=== PATIENT | female | born 1950 | race Caucasian/White ===

== ENCOUNTER 2024-07-12 09:46 | Outpatient (REF) | payer MEDICARE, SELFPAY ==
[2024-07-12 11:44] LABS: MANUAL DIFF FLAG NO
[2024-07-12 12:30] LABS: Basophils Absolute Auto 0.1 X10*3/uL (0.0-0.2); Basophils Percent Auto 0.7 % (0-2); Eosinophils Absolute Auto 0.1 X10*3/uL (0.0-0.4); Eosinophils Percent Auto 1.7 % (0-4); Hematocrit 33.6 % (37.0-47.0); Hemoglobin 11.2 g/dl (12.0-16.0); Imm Gran Abs Auto 0.11 X10*3/uL (0.00-0.03); Imm Gran Pct Auto 1.4 % (0.0-0.4); Lymphocytes Absolute Auto 0.9 X10*3/uL (1.2-4.9); Lymphocytes Percent Auto 10.7 % (20-40); Mean Corpuscular HGB Conc 33.3 g/dl (31.0-35.0); Mean Corpuscular Hemoglobin 31.1 pg (27.0-33.0); Mean Corpuscular Volume 93.3 fL (80.0-98.0); Mean Platelet Volume 9.6 fL (9.4-12.3); Monocytes Absolute Auto 0.6 X10*3/uL (0.1-1.2); Monocytes Percent Auto 7.5 % (2-11); Neutrophils Absolute Auto 6.3 x10*3/uL (2.0-8.3); Platelet Count 318 X10*3/uL (160-400); Red Cell Distribution Width 14.7 % (11.0-16.0); White Blood Count 8.1 X10*3/uL (4.8-10.8)
[2024-07-12 12:42] LABS: Alanine Aminotransferase 27 U/L (0-31); Aspartate Amino Transferase 36 U/L (5-31); C Reactive Protein 0.52 mg/dL (< or = 0.50); Estimated Glomerular Filt Rate 34
[2024-07-12 13:06] LABS: Erythrocyte Sedimentation Rate 67 MM/HR (0-20); HBS Num1 2.36 mIU/mL (0-7.99); HBc Num1 0.13 S/CO (0.00-0.79); HBsAGNum1 0.35 S/CO (0.00-0.99); Hepatitis B Core Antibody Nonreactive (Nonreactive); Hepatitis B Surface Antigen Negative (Negative); ~HepC Num1 0.11 S/CO (0.00-0.79); ~Hepatitis B Surface Antibody NONREACTIVE (Nonreactive); ~Hepatitis C Antibody Nonreactive (Nonreactive)
[2024-07-15 07:48] LABS: TS Negative Control Passed; TS Panel A 0; TS Panel B 0; TS Positive Control Passed; TSpotTB Negative (Negative)
== END 2024-07-12 09:47 | disposition home or self-care (01) ==
LOC: HO.LAB 09:46
PROVIDERS: PCP Internal Medicine; Visit Provider Internal Medicine Rheumatology
DX: M06.9 Rheumatoid arthritis, unspecified (principal); Z79.899 Other long term (current) drug therapy
CPT/HCPCS: 36415; 82565; 84450; 84460; 85025; 85652; 86140; 86481; 86704; 86706; 86803; 87340

== ENCOUNTER 2024-07-12 09:46 | Outpatient (AMB) | payer BC, SELFPAY ==
[2024-07-12 10:12] VITALS: BP 118/70; PULSE 78; O2SAT 100; BMI 42.1
--- NOTE | 2024-07-12 10:12 | A.OFFVIS_ITS ---
Vital Signs 07/12/24 10:12 Height 5 ft 4 in Weight 245 lb 2.464 oz BMI 42.1 BP 118/70 Blood Pressure Location Lt brachial Position Sitting Pulse 78 Pulse Source Pulse Oximeter Pulse Oximetry (%) 100 Oxygen Delivery Method Room Air Intake Visit Reasons: RA/MR Recieved Intake Note: Patient presents today for follow up on RA. She was last seen by Dr. Walsh at the [facility] on 02/23/24. Allergies novocaine Adverse Reaction (Mild, Uncoded 07/12/24 10:17) shaky, cold IVP dye Adverse Reaction (Unknown, Uncoded 07/12/24 10:17) extremely cold Medication List - Last Reconciled 07/12/24 by Alon Walsh MD acetaminophen (Tylenol Extra Strength) 1,000 mg PO Q6H PRN aspirin (Adult Aspirin Regimen) 81 mg PO DAILY folic acid 1 mg PO DAILY glipizide 10 mg PO DAILY hydrochlorothiazide 25 mg PO DAILY losartan 100 mg PO DAILY metformin 1,000 mg PO BID methotrexate sodium 7.5 mg PO QWEEK fbximcnfutan-qcgtnhxq-hatroe 1 tab PO DAILY pioglitazone 45 mg PO DAILY pravastatin 80 mg PO DAILY HPI HPI RA/MR Recieved: Details: She feels well. No new infections. Rheumatology records reviewed from [facility]. Rheumatology history: Diagnosis rheumatoid arthritis seropositive with positive anti CCP antibody greater than 250, negative rheumatoid factor. Erosive. Methotrexate started 11/09/2020 until present. History of CKD. Monitoring kidney function closely if kidney function declines with EGFR less than 30, we will need to discontinue methotrexate. Review of Systems Const All systems reviewed & are unremarkable except as noted in HPI and below Physical Exam Vital Signs: Last Vital Signs Pulse 78 07/12/24 10:12 BP 118/70 07/12/24 10:12 Pulse Ox 100 07/12/24 10:12 Oxygen Delivery Method Room Air 07/12/24 10:12 BMI result Body Mass Index 42.1 Const General: cooperative and healthy appearing Resp Effort & Inspection: normal respiratory effort Auscultation: clear to auscultation bilaterally Cardio Rate: regular rate Rhythm: regular rhythm Heart sounds: S1 normal heart sound present and S2 normal heart sound present Extrem Other: No synovitis. Good range of motion of upper extremity. Bilateral knee flexion 90 degrees. No MTP tenderness. Assessment & Plan Assessment & Plan (1) Rheumatoid arthritis: Comment: Controlled on current regimen Code(s): M06.9 - Rheumatoid arthritis, unspecified Category: Medical Plan: Labs for disease and drug monitoring ordered Continue methotrexate 7.5 mg once weekly Continue folic acid 1 mg daily Monitoring kidney function closely. If EGFR degrees his less than 30, we will discontinue methotrexate Immunizations are up-to-date: Flu shot and COVID-19 booster (2) Other care home (current) drug therapy: Code(s): Z79.899 - Other care home (current) drug therapy Category: Medical Plan: See above Plan . Orders: Orders Erythrocyte Sedimentation Rate Today M06.9 - Rheumatoid arthritis, unspecified, Z79.899 - Other care home (current) drug therapy Alanine Aminotransferase Today M06.9 - Rheumatoid arthritis, unspecified, Z79.899 - Other care home (current) drug therapy Aspartate Amino Transferase Today M06.9 - Rheumatoid arthritis, unspecified, Z79.899 - Other care home (current) drug therapy C Reactive Protein Today M06.9 - Rheumatoid arthritis, unspecified, Z79.899 - Other terminal press operator (current) drug therapy Complete Blood Count Auto Diff Today M06.9 - Rheumatoid arthritis, unspecified, Z79.899 - Other care home (current) drug therapy Creatinine Today M06.9 - Rheumatoid arthritis, unspecified, Z79.899 - Other care home (current) drug therapy Hepatitis B,C Profile Today M06.9 - Rheumatoid arthritis, unspecified, Z79.899 - Other care home (current) drug therapy T Spot TB Today M06.9 - Rheumatoid arthritis, unspecified, Z79.899 - Other terminal press operator (current) drug therapy Coding Level of Care Code Est Pt Level 4 (16319) Complex EM visit Add On G2211 Diagnoses Rheumatoid arthritis M06.9 Other terminal press operator (current) drug therapy Z79.899
== END 2024-07-12 10:48 | disposition home or self-care (01) ==
PROVIDERS: Visit Provider Internal Medicine Rheumatology
DX: M06.9 Rheumatoid arthritis, unspecified (principal); Z79.899 Other long term (current) drug therapy
CPT/HCPCS: 99214

== ENCOUNTER 2024-10-11 09:14 | Outpatient (REF) | payer MEDICARE, SELFPAY ==
[2024-10-11 18:10] LABS: MANUAL DIFF FLAG NO
[2024-10-11 18:24] LABS: Alanine Aminotransferase 16 U/L (0-31); Aspartate Amino Transferase 31 U/L (5-31); C Reactive Protein 3.11 mg/dL (< or = 0.50); Estimated Glomerular Filt Rate 33
[2024-10-11 18:28] LABS: Basophils Percent Auto 0.6 % (0-2); Eosinophils Absolute Auto 0.1 X10*3/uL (0.0-0.4); Eosinophils Percent Auto 1.1 % (0-4); Hematocrit 28.8 % (37.0-47.0); Hemoglobin 10.4 g/dl (12.0-16.0); Imm Gran Abs Auto 0.05 X10*3/uL (0.00-0.03); Imm Gran Pct Auto 0.8 % (0.0-0.4); Lymphocytes Absolute Auto 0.7 X10*3/uL (1.2-4.9); Lymphocytes Percent Auto 10.5 % (20-40); Mean Corpuscular HGB Conc 36.1 g/dl (31.0-35.0); Mean Corpuscular Hemoglobin 34.8 pg (27.0-33.0); Mean Corpuscular Volume 96.3 fL (80.0-98.0); Monocytes Absolute Auto 0.6 X10*3/uL (0.1-1.2); Monocytes Percent Auto 8.5 % (2-11); Neutrophils Absolute Auto 5.1 x10*3/uL (2.0-8.3); Neutrophils Percent Auto 78.5 % (45-73); Platelet Count 261 X10*3/uL (160-400); Red Blood Count 2.99 X10*6/uL (4.20-5.50); Red Cell Distribution Width 15.2 % (11.0-16.0); White Blood Count 6.5 X10*3/uL (4.8-10.8)
[2024-10-11 18:54] LABS: Erythrocyte Sedimentation Rate 83 MM/HR (0-20)
== END 2024-10-11 09:15 | disposition home or self-care (01) ==
LOC: HO.HKASLDS 09:14
PROVIDERS: PCP Internal Medicine; Visit Provider Internal Medicine Rheumatology
DX: M06.9 Rheumatoid arthritis, unspecified (principal); M65.321 Trigger finger, right index finger; Z79.60 Long term (current) use of unspecified immunomodulators and immunosuppressants; R70.0 Elevated erythrocyte sedimentation rate; R79.82 Elevated C-reactive protein (CRP); R74.01 Elevation of levels of liver transaminase levels; Z79.899 Other long term (current) drug therapy
CPT/HCPCS: 36415; 82565; 84450; 84460; 85025; 85652; 86140; 99212

== ENCOUNTER 2024-10-11 09:14 | Outpatient (AMB) | payer MEDICARE, SELFPAY ==
--- NOTE | 2024-10-11 09:19 | MHC.OFFVIS ---
Vital Signs 10/11/24 09:21 Height 5 ft 4 in Weight 247 lb 6 oz BMI 42.5 BP 140/90 H Blood Pressure Location Lt brachial Position Sitting Pulse 82 Pulse Source Pulse Oximeter Pulse Oximetry (%) 100 Oxygen Delivery Method Room Air Intake Visit Reasons: Follow Up 3mo Intake Note: Pt present today for rheumatoid arthritis. Research Associate Policy Required: No Accompanied by: Self / Same As Patient Allergies novocaine Adverse Reaction (Mild, Uncoded 07/12/24 10:17) shaky, cold IVP dye Adverse Reaction (Unknown, Uncoded 07/12/24 10:17) extremely cold HPI HPI Follow Up 3mo: Details: No recent flares. No recent illness. She is having difficulty walking long distances and uses a walker. Right 2nd finger has been triggering for a year. Review of Systems Const All systems reviewed & are unremarkable except as noted in HPI and below Physical Exam Vital Signs: Last Vital Signs Pulse 82 10/11/24 09:21 BP 140/90 H 10/11/24 09:21 Pulse Ox 100 10/11/24 09:21 Oxygen Delivery Method Room Air 10/11/24 09:21 BMI result Body Mass Index 42.5 Const Other: General: Comfortable CVS: RRR Respiratory: clear to auscultation bilaterally. Good respiratory effort Skin: No lesions seen MSK: No tenderness of any joints. No synovitis. Good range of motion of upper extremities. Bilateral knee flexion 90 degrees. Triggering of right 2nd finger observed. No tenderness or nodule on palmar aspect of 2nd MCP. Assessment & Plan Assessment & Plan (1) Rheumatoid arthritis: Comment: Controlled on current regimen. Recent labs from June revealed mild transaminitis of AST. We will repeat labs this visit. 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 Methotrexate started 11/09/2020 to present. History of CKD. Code(s): M06.9 - Rheumatoid arthritis, unspecified Category: Medical Qualifiers: Rheumatoid factor presence: without rheumatoid factor Laterality: bilateral Plan: Labs for disease and drug monitoring ordered Continue methotrexate 7.5 mg once weekly. If liver enzymes continue to remain elevated, we will need to discontinue methotrexate. Continue folic acid 1 mg daily Monitoring kidney function closely. If EGFR degrees his less than 30, we will discontinue methotrexate Immunizations are up-to-date: Flu shot and COVID-19 booster (2) Trigger finger, right index finger: Comment: Discussed conservative management Code(s): M65.321 - Trigger finger, right index finger Category: Medical Plan: OT ordered with recommendations for splinting If symptoms do not improve at follow-up appointment, I will further treat with cortisone injection Return to clinic in 3 months (3) Other terminal press operator (current) drug therapy: Code(s): Z79.899 - Other terminal press operator (current) drug therapy Category: Medical Plan: See above Plan . Orders: Orders OT Evaluation and Treatment Today M65.321 - Trigger finger, right index finger PT Evaluation and Treatment Today Z96.653 - Presence of artificial knee joint, bilateral Complete Blood Count Auto Diff Today Z79.60 - residential (current) use of unspecified immunomodulators and immunosuppressants Creatinine Today Z79.60 - terminal press operator (current) use of unspecified immunomodulators and immunosuppressants Coding Level of Care Code Est Pt Level 4 (51396) Complex EM visit Add On G2211 Diagnoses Rheumatoid arthritis M06.9 Rheumatoid factor presence: without rheumatoid factor Laterality: bilateral Trigger finger, right index finger M65.321 Other assisted (current) drug therapy Z79.899
[2024-10-11 09:21] VITALS: BP 140/90; PULSE 82; O2SAT 100; BMI 42.5
== END 2024-10-11 10:13 | disposition home or self-care (01) ==
PROVIDERS: PCP Internal Medicine; Visit Provider Internal Medicine Rheumatology
DX: M06.9 Rheumatoid arthritis, unspecified (principal); M65.321 Trigger finger, right index finger; Z79.899 Other long term (current) drug therapy
CPT/HCPCS: 99214; G2211

== ENCOUNTER 2024-11-13 12:41 | Outpatient (RCR) | payer MEDICARE, SELFPAY | END 2024-11-29 14:40 | disposition home or self-care (01) | LOC: HO.OT 12:41 | PROVIDERS: PCP Internal Medicine; Visit Provider Internal Medicine Rheumatology | DX: M65.321 Trigger finger, right index finger (principal) | CPT/HCPCS: 97110; 97140; 97165; 97760 ==

== ENCOUNTER 2024-12-27 18:58 | Inpatient (IN) | payer MEDICARE, SELFPAY ==
--- NOTE | ~2024-12-27 | XR_ITS ---
CLINICAL HISTORY: shortness of breath 1 view chest x-ray Comparison: None Findings: The lungs are clear. Heart size is mildly enlarged. No acute fracture. IMPRESSION: 1. No acute findings. This document has been electronically signed by: Rudy Hendrickson MD on 12/28/2024 00:03:55
--- NOTE | ~2024-12-27 | US_ITS ---
CLINICAL HISTORY: LLE swelling erythema Venous duplex ultrasound left lower extremity Comparison: None Findings: The visualized deep veins are fully compressible with normal Doppler color flow and spectral tracings. No popliteal cyst. IMPRESSION: 1. Negative for left lower extremity deep vein thrombosis. This document has been electronically signed by: Rudy Hendrickson MD on 12/27/2024 20:16:40
--- NOTE | ~2024-12-27 | XR_ITS ---
CLINICAL HISTORY: pain swelling 3 view left ankle Comparison: None Findings: Osteopenia. No acute fracture. Calcaneal spurring. Prominent os trigonum. Osteophytes along the dorsum of the hindfoot. No ankle effusion. No radiopaque foreign body. Diffuse soft tissue edema. Scattered phleboliths. IMPRESSION: 1. No acute fracture. 2. Diffuse cellulitis. This document has been electronically signed by: Compa Curtis MD on 12/27/2024 20:02:51
[2024-12-27 19:08] VITALS: BP 135/78; BP 151/69; PULSE 95; RESP 18; TEMP 36.8; O2SAT 100; BMI 42.5
--- NOTE | 2024-12-27 19:10 | ED_ITS ---
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 She has a history of type 2 diabetes and rheumatoid arthritis. She has had worsening pain in the region of the left ankle over the last few days. There was no injury. She has never had a problem like this before. She has been trying to use a cane to get around but tonight she did not feel she could get around any further on her own and so she called an ambulance and was brought to the hospital. She has felt chilled. She does not think she has had a fever. No nausea or vomiting. The patient does not have a history of a problem like this before. Related Data Home Medications ?Medication ?Instructions ?Recorded ?Confirmed aspirin 81 mg tablet,delayed 81 mg PO DAILY 07/10/24 12/28/24 release (Adult Aspirin Regimen) folic acid 1 mg tablet 1 mg PO DAILY 07/10/24 12/28/24 glipizide 10 mg tablet 10 mg PO DAILY 07/10/24 12/28/24 hydrochlorothiazide 25 mg tablet 25 mg PO DAILY 07/10/24 12/28/24 losartan 100 mg tablet 100 mg PO DAILY 07/10/24 12/28/24 pioglitazone 45 mg tablet 45 mg PO DAILY 07/10/24 12/28/24 pravastatin 80 mg tablet 80 mg PO DAILY 07/10/24 12/28/24 metformin 1,000 mg tablet 1,000 mg PO BID 07/12/24 12/28/24 Previous Rx's ?Medication ?Instructions ?Recorded methotrexate sodium 2.5 mg tablet 7.5 mg (3 x 2.5 mg) PO QWEEK #12 07/17/24 tabs Allergies Allergy/AdvReac Type Severity Reaction Status Date / Time novocaine AdvReac Mild shaky, cold Uncoded 12/27/24 19:14 IVP dye AdvReac Unknown extremely Uncoded 12/27/24 19:14 cold Review of Systems 2 Review of Systems: Yes all other systems are reviewed and are negative [facility] Past Medical History Medical History (Updated 12/28/24 @ 00:40 by Latasha Buzz, PA-C) CKD stage 3a, GFR 45-59 ml/min Rheumatoid arthritis Type 2 diabetes mellitus Surgical History (Updated 12/28/24 @ 00:33 by Latasha Gerber PA-C) S/p total knee replacement, bilateral Social History Social History Smoked in Last 30 Days: No Use of substances other than those prescribed or required for medical reasons: Unknown Advance Directives: No Advance Directives Information Provided: No Do you have a plan to hurt others: No Plan Physical Exam 2 Vital Signs: Vital Signs: Last Vital Signs Temp 99 F 12/28/24 02:12 Pulse 89 12/28/24 02:12 Resp 20 12/28/24 02:12 BP 97/56 L 12/28/24 02:12 Pulse Ox 98 12/28/24 02:12 O2 Del Method Room Air 12/28/24 02:12 BMI result Body Mass Index 42.5 Const: Other: The patient is a chronically ill-appearing 74-year-old woman who was awake and alert, pleasant cooperative. She does not seem in acute pain. HEENT: Other: Face is symmetrical, mucous membranes moist Eyes: General: appearance normal, both eyes and all related structures Neck: Neck: Yes normal visual inspection, Yes full ROM and Yes no JVD Resp: Effort & Inspection: normal respiratory effort Auscultation: clear to auscultation bilaterally Cardio: Rate: regular rate Rhythm: regular rhythm Heart sounds: S1 normal heart sound present and S2 normal heart sound present GI: Other: the abdomen is soft and nontender Skin: Other: the patient has a edema to the left lower leg and foot. There are some areas of blotchy erythema and generalized warmth and tenderness to the lower leg and the foot. Neuro: Other: The patient is awake and alert. Mental status is appropriate. She is oriented. Cranial nerves are grossly intact. She seems to have symmetrical strength in her extremities although she seems deconditioned. Extrem: Other: There is a edema to the left lower leg and foot. There are patchy areas of erythema. The leg is warm. She is able to move the knee in the ankle and the toes. Course Course Course Narrative: This is a Rapid Medical Exam performed in triage by Neena Tanner PA-C. Full HPI, ROS and PE to be performed by primary ED provider. 74-year-old female presenting to the ED via EMS c/o L ankle/foot pain & swelling w/inability to bear weight x few days. denies injury/fall or trauma. Has been using cane at home. denies hx gout PE: +L ankle swelling & erythema w/warmth. +ttp to ankle. NV intact. No calf ttp. No crepitus Plan: Labs, XR, US Medications Administered Discontinued Medications Generic Name Dose Route Start Last Admin Trade Name Lamar PRN Reason Stop Dose Admin Ceftriaxone Sodium 1 gm 12/27/24 23:49 12/28/24 00:00 Ceftriaxone Sodium 1 Gm Vial IVPUSH 12/27/24 23:50 1 gm ONCE ONE Administration Vancomycin HCl 2,000 mg in 500 mls @ 250 mls/hr 12/27/24 23:19 12/28/24 02:45 Vancomycin/Ns IV 12/28/24 01:18 Infused ONCE ONE Infusion Medical Decision Making Medical Decision Making [facility] Narrative: The patient is a 74-year-old woman with a history of type 2 diabetes and rheumatoid arthritis who presents with pain and swelling of the left lower leg, ankle, and foot for several days. There was no associated injury. Clinically the patient probably has a cellulitis type infection to the lower leg and foot. An x-ray shows no acute bony findings. She has a white count of 13.1. CRP is elevated at 11.54. Lactic acid is normal. Blood cultures were obtained. The patient was started on vancomycin and ceftriaxone. I think the patient has a left lower leg cellulitis. She also has a somewhat abnormal urinalysis. She will be admitted to the hospitalist service. Lab Data 12/27/24 19:46 12/27/24 19:46 Labs: Lab Results 12/27/24 12/27/24 12/27/24 Range/Units 19:46 22:21 23:32 WBC 13.1 H (4.8-10.8) X10*3/uL RBC 3.20 L (4.20-5.50) X10*6/uL Hgb 9.8 L (12.0-16.0) g/dl Hct 28.6 L (37.0-47.0) % MCV 89.4 (80.0-98.0) fL MCH 30.6 (27.0-33.0) pg MCHC 34.3 (31.0-35.0) g/dl RDW 15.8 (11.0-16.0) % Plt Count 230 (160-400) X10*3/uL MPV 8.8 L (9.4-12.3) fL Immature Gran % (Auto) 0.8 H (0.0-0.4) % Neut % (Auto) 87.9 H (45-73) % Lymph % (Auto) 3.4 L (20-40) % [place] % (Auto) 7.6 (2-11) % Eos % (Auto) 0.1 (0-4) % Baso % (Auto) 0.2 (0-2) % Lymph # (Auto) 0.4 L (1.2-4.9) X10*3/uL [place] # (Auto) 1.0 (0.1-1.2) X10*3/uL Eos # (Auto) 0.0 (0.0-0.4) X10*3/uL Baso # (Auto) 0.0 (0.0-0.2) X10*3/uL Abs Immat Gran (auto) 0.10 H (0.00-0.03) X10*3/uL Absolute Neuts (auto) 11.5 H (2.0-8.3) x10*3/uL Absolute Nucleated RBC 0.000 (0.0-0.012) X10*3/uL Nucleated RBC % (auto) 0.0 (0.0-0.2) /100WBC ESR 85 H (0-20) MM/HR Sodium 137 (135-145) mmol/L Potassium 3.9 (3.3-5.1) mmol/L Chloride 104 (96-108) mmol/L Carbon Dioxide 21 L (22-29) mmol/L Anion Gap 16 (12-20) BUN 33 H (9-16) mg/dL Creatinine 1.51 H (0.5-1.4) mg/dL Estim Creat Clear Calc 38.7 Estimated GFR 34 Random Glucose 164 H (60-115) mg/dL Lactic Acid 1.2 (0.5-2.0) mmol/L Uric Acid 6.0 H (2.4-5.7) mg/dL Calcium 9.1 (8.4-10.2) mg/dL C-Reactive Protein 11.54 H (< or = 0.50) mg/dL B-Natriuretic Peptide 123 H (<100) pg/mL Urine Color Yellow Urine Appearance Turbid Urine pH 6.0 (5.0-9.0) Ur Specific [place] 1.020 (1.005-1.025) Urine Protein 30 (1+) H (Neg-Trace) mg/dL Urine Glucose (UA) Negative (Negative) mg/dL Urine Ketones Trace (Negative) mg/dL Urine Blood Moderate (2+) H (Negative) Urine Nitrite Positive H (Negative) Ur Leukocyte Esterase Large (3+) H (Negative) Urine RBC 6-10 H (0-2) /HPF Urine WBC 21-50 H (0-5) /HPF Ur Squamous Epith Cells 11-20 (0-2) /HPF Urine Bacteria 4+ (None Seen) Hyaline Casts 0-2 (0-2) /LPF Discharge Plan Discharge Clinical Impression: Cellulitis of left lower extremity, Abnormal urinalysis, Type 2 diabetes mellitus Patient Disposition: Admitted As Inpatient
[2024-12-27 19:55] LABS: Basophils Percent Auto 0.2 % (0-2); Eosinophils Percent Auto 0.1 % (0-4); Hematocrit 28.6 % (37.0-47.0); Hemoglobin 9.8 g/dl (12.0-16.0); Imm Gran Pct Auto 0.8 % (0.0-0.4); Lymphocytes Absolute Auto 0.4 X10*3/uL (1.2-4.9); Lymphocytes Percent Auto 3.4 % (20-40); MANUAL DIFF FLAG NO; Mean Corpuscular HGB Conc 34.3 g/dl (31.0-35.0); Mean Corpuscular Hemoglobin 30.6 pg (27.0-33.0); Mean Corpuscular Volume 89.4 fL (80.0-98.0); Mean Platelet Volume 8.8 fL (9.4-12.3); Monocytes Percent Auto 7.6 % (2-11); Neutrophils Absolute Auto 11.5 x10*3/uL (2.0-8.3); Neutrophils Percent Auto 87.9 % (45-73); Platelet Count 230 X10*3/uL (160-400); Red Cell Distribution Width 15.8 % (11.0-16.0); White Blood Count 13.1 X10*3/uL (4.8-10.8)
[2024-12-27 20:16] LABS: Anion Gap 16 (12-20); B Type Natriuretic Peptide 123 pg/mL (<100); Blood Urea Nitrogen 33 mg/dL (9-16); C Reactive Protein 11.54 mg/dL (< or = 0.50); Calcium 9.1 mg/dL (8.4-10.2); Carbon Dioxide 21 mmol/L (22-29); Chloride 104 mmol/L (96-108); Creatinine Clr Calc Pharmacy 38.7; Estimated Glomerular Filt Rate 34; Glucose Random 164 mg/dL (60-115); Potassium 3.9 mmol/L (3.3-5.1); Sodium 137 mmol/L (135-145)
[2024-12-27 21:27] LABS: Erythrocyte Sedimentation Rate 85 MM/HR (0-20)
[2024-12-27 22:30] LABS: Appearance Urine Turbid; Color Urine Yellow; Glucose Urine UA Negative (Negative); Leukocyte Esterase Urine Large (3+) (Negative); Nitrite Urine Positive (Negative); UMIC TRIGGER UACC YES; Urine Blood Moderate (2+) (Negative); Urine Ketones Trace mg/dL (Negative); Urine Protein 30 (1+) mg/dL (Neg-Trace)
[2024-12-27 22:45] VITALS: BP 148/70; PULSE 96; RESP 20; TEMP 36.8; O2SAT 99
[2024-12-27 23:28] LABS: Bacteria Urine 4+ (None Seen); Hyaline Casts Urine 0-2 /LPF (0-2); UACC Culture Trigger YES; WBC Urine 21-50 /HPF (0-5)
[2024-12-27] MEDS: vancomycin/NS 2,000 MG/500 ML PLAST..BAG 250 MG IV (23:40)
[2024-12-27 23:54] LABS: Lactic Acid 1.2 mmol/L (0.5-2.0)
--- NOTE | 2024-12-27 23:55 | P.HPHOSP_ITS ---
[facility] Social History Smoked in Last 30 Days: No Use of substances other than those prescribed or required for medical reasons: Unknown Advance Directives: No Advance Directives Information Provided: No Do you have a plan to hurt others: No Plan Meds Allergies Allergy/AdvReac Type Severity Reaction Status Date / Time novocaine AdvReac Mild shaky, cold Uncoded 12/27/24 19:14 IVP dye AdvReac Unknown extremely Uncoded 12/27/24 19:14 cold Active Medications: Current Medications Vancomycin HCl (Vancomycin/Ns) 2,000 mg in 500 mls @ 250 mls/hr IV ONCE ONE Stop: 12/28/24 01:18 Last Admin: 12/27/24 23:40 Dose: 250 mls/hr Pharmacy Consult (Consult Rx Vancomycin Dosing) 1 each MISCELLANE DAILY PRN PRN Reason: Consult order Home Medications ?Medication ?Instructions ?Recorded ?Confirmed ?Last Taken ?Type acetaminophen 500 mg tablet 1,000 mg PO Q6H PRN 07/10/24 07/12/24 Unknown History (Tylenol Extra Strength) aspirin 81 mg tablet,delayed 81 mg PO DAILY 07/10/24 07/12/24 Unknown History release (Adult Aspirin Regimen) folic acid 1 mg tablet 1 mg PO DAILY 07/10/24 07/12/24 Unknown History glipizide 10 mg tablet 10 mg PO DAILY 07/10/24 07/12/24 Unknown History hydrochlorothiazide 25 mg tablet 25 mg PO DAILY 07/10/24 07/12/24 Unknown History losartan 100 mg tablet 100 mg PO DAILY 07/10/24 07/12/24 Unknown History pioglitazone 45 mg tablet 45 mg PO DAILY 07/10/24 07/12/24 Unknown History pravastatin 80 mg tablet 80 mg PO DAILY 07/10/24 07/12/24 Unknown History metformin 1,000 mg tablet 1,000 mg PO BID 07/12/24 07/12/24 Unknown History suexugfjxjdk-qampacww-dasqfy tablet 1 tab PO DAILY 07/12/24 07/12/24 Unknown History Physical Exam 2 Vital Signs and Narrative: Vital Signs: Last Vital Signs Temp 98.3 F 12/27/24 22:45 Pulse 96 12/27/24 22:45 Resp 20 12/27/24 22:45 BP 148/70 H 12/27/24 22:45 Pulse Ox 99 12/27/24 22:45 O2 Del Method Room Air 12/27/24 22:45 BMI result Body Mass Index 42.5 Results Labs 12/27/24 19:46 12/27/24 19:46 Labs: Laboratory Results - last 24 hr 12/27/24 12/27/24 12/27/24 19:46 22:21 23:32 MCV 89.4 MCH 30.6 MCHC 34.3 RDW 15.8 Plt Count 230 MPV 8.8 L Immature Gran % (Auto) 0.8 H Neut % (Auto) 87.9 H Lymph % (Auto) 3.4 L [place] % (Auto) 7.6 Eos % (Auto) 0.1 Baso % (Auto) 0.2 Lymph # (Auto) 0.4 L [place] # (Auto) 1.0 Eos # (Auto) 0.0 Baso # (Auto) 0.0 Abs Immat Gran (auto) 0.10 H Absolute Neuts (auto) 11.5 H Absolute Nucleated RBC 0.000 Nucleated RBC % (auto) 0.0 ESR 85 H Anion Gap 16 Estim Creat Clear Calc 38.7 Estimated GFR 34 Random Glucose 164 H Lactic Acid 1.2 Uric Acid 6.0 H Calcium 9.1 C-Reactive Protein 11.54 H B-Natriuretic Peptide 123 H Urine Color Yellow Urine Appearance Turbid Urine pH 6.0 Ur Specific [place] 1.020 Urine Protein 30 (1+) H Urine Glucose (UA) Negative Urine Ketones Trace Urine Blood Moderate (2+) H Urine Nitrite Positive H Ur Leukocyte Esterase Large (3+) H Urine RBC 6-10 H Urine WBC 21-50 H Ur Squamous Epith Cells 11-20 Urine Bacteria 4+ Hyaline Casts 0-2
--- NOTE | 2024-12-28 00:30 | PM.IMHP ---
History of Present Illness Date of Service: 12/27/24 Attending physician on admission: Nidia Nayak Chief Complaint: Left ankle pain/swelling patient is a 74-year-old female with a past medical history significant for type 2 diabetes, cellulitis, bilateral TKR, CKD 3A, and RA, who presented to the ED due to atraumatic left ankle pain for 3-4 days. She has had chills but denies any fever, nausea or vomiting. There is a patchy erythematous area LLE. she also has bilateral lower extremity edema. She reports difficulty with ambulation due to her left ankle pain. Review of Systems Constitutional: Constitutional: Reports chills, Denies fatigue, Denies fever(s) and Denies headache(s) Eyes: Eyes: Denies change in vision and Denies photophobia ENT: Denies headache(s), Denies nasal congestion, Denies nasal discharge and Denies sore throat Cardiovascular: Cardiovascular: Denies chest pain, Denies rapid heart rate, Reports leg edema, Denies lightheadedness and Denies dyspnea Respiratory: Respiratory: Denies chest congestion, Denies cough, Denies dyspnea and Denies wheezing Gastrointestinal: Gastrointestinal: Denies abdominal pain, Denies diarrhea, Denies nausea and Denies vomiting Genitourinary: Genitourinary: Denies difficulty voiding, Denies dysuria and Denies urinary urgency Musculoskeletal: Musculoskeletal: Reports as per HPI Integumentary/Breasts: Skin/Breast: Reports as per HPI Neurologic: Denies confusion and Denies headache(s) Psychiatric: Psychiatric: Denies confusion Endocrine: Endocrine: Denies fatigue Hematologic/Lymphatic: Hematologic/Lymphatic: Denies easy bleeding and Denies easy bruising Allergic/Immunologic: Allergic/Immunologic: Denies wheezing [facility] Medical History (Updated 12/28/24 @ 00:40 by Latasha Gerber PA-C) CKD stage 3a, GFR 45-59 ml/min Rheumatoid arthritis Type 2 diabetes mellitus Functional capacity: independent ambulation Surgical History (Updated 12/28/24 @ 00:33 by Latasha Gerber PA-C) S/p total knee replacement, bilateral Social History Smoked in Last 30 Days: No Use of substances other than those prescribed or required for medical reasons: Unknown Advance Directives: No Advance Directives Information Provided: No Do you have a plan to hurt others: No Plan Narrative: No smoking, alcohol or drug use Meds Allergies Allergy/AdvReac Type Severity Reaction Status Date / Time novocaine AdvReac Mild shaky, cold Uncoded 12/27/24 19:14 IVP dye AdvReac Unknown extremely Uncoded 12/27/24 19:14 cold Active Medications: Current Medications Vancomycin HCl (Vancomycin/Ns) 2,000 mg in 500 mls @ 250 mls/hr IV ONCE ONE Stop: 12/28/24 01:18 Last Admin: 12/27/24 23:40 Dose: 250 mls/hr Pharmacy Consult (Consult Rx Vancomycin Dosing) 1 each MISCELLANE DAILY PRN PRN Reason: Consult order Home Medications ?Medication ?Instructions ?Recorded ?Confirmed ?Last Taken ?Type aspirin 81 mg tablet,delayed 81 mg PO DAILY 07/10/24 12/28/24 Unknown History release (Adult Aspirin Regimen) folic acid 1 mg tablet 1 mg PO DAILY 07/10/24 12/28/24 Unknown History glipizide 10 mg tablet 10 mg PO DAILY 07/10/24 12/28/24 Unknown History hydrochlorothiazide 25 mg tablet 25 mg PO DAILY 07/10/24 12/28/24 Unknown History losartan 100 mg tablet 100 mg PO DAILY 07/10/24 12/28/24 Unknown History pioglitazone 45 mg tablet 45 mg PO DAILY 07/10/24 12/28/24 Unknown History pravastatin 80 mg tablet 80 mg PO DAILY 07/10/24 12/28/24 Unknown History metformin 1,000 mg tablet 1,000 mg PO BID 07/12/24 12/28/24 Unknown History Physical Exam Vital Signs and Narrative: Vital Signs: Last Vital Signs Temp 98.3 F 12/27/24 22:45 Pulse 96 12/27/24 22:45 Resp 20 12/27/24 22:45 BP 148/70 H 12/27/24 22:45 Pulse Ox 99 12/27/24 22:45 O2 Del Method Room Air 12/27/24 22:45 BMI result Body Mass Index 42.5 General: AOx3, no acute distress Resp: CTA bilaterally CVS: S1, S2, RRR GI: +BS, NT, no distention Skin: Warm, dry Neuro: Cranial nerves II-XII grossly intact bilaterally. Motor grossly intact bilaterally Extremities: 1+ bilateral pitting edema. patchy erythema and warmth LLE. Psych: Appropriate affect Const: General: No confusion Orientation/consciousness: No confusion Eyes: Direct Ophthalmoscopy: No photophobia Neuro: General: No confusion Results Labs 12/27/24 19:46 12/27/24 19:46 Labs: Laboratory Results - last 24 hr 12/27/24 12/27/24 12/27/24 19:46 22:21 23:32 MCV 89.4 MCH 30.6 MCHC 34.3 RDW 15.8 Plt Count 230 MPV 8.8 L Immature Gran % (Auto) 0.8 H Neut % (Auto) 87.9 H Lymph % (Auto) 3.4 L Josephine % (Auto) 7.6 Eos % (Auto) 0.1 Baso % (Auto) 0.2 Lymph # (Auto) 0.4 L Joseph[place] # (Auto) 1.0 Eos # (Auto) 0.0 Baso # (Auto) 0.0 Abs Immat Gran (auto) 0.10 H Absolute Neuts (auto) 11.5 H Absolute Nucleated RBC 0.000 Nucleated RBC % (auto) 0.0 ESR 85 H Anion Gap 16 Estim Creat Clear Calc 38.7 Estimated GFR 34 Random Glucose 164 H Lactic Acid 1.2 Uric Acid 6.0 H Calcium 9.1 C-Reactive Protein 11.54 H B-Natriuretic Peptide 123 H Urine Color Yellow Urine Appearance Turbid Urine pH 6.0 Ur Specific [place] 1.020 Urine Protein 30 (1+) H Urine Glucose (UA) Negative Urine Ketones Trace Urine Blood Moderate (2+) H Urine Nitrite Positive H Ur Leukocyte Esterase Large (3+) H Urine RBC 6-10 H Urine WBC 21-50 H Ur Squamous Epith Cells 11-20 Urine Bacteria 4+ Hyaline Casts 0-2 Assessment and Plan (1) Sepsis: Status: Acute (2) Cellulitis of left lower extremity: Status: Acute (3) CKD stage 3a, GFR 45-59 ml/min: Status: Acute (4) Class 3 obesity: Status: Acute Plan patient is a 74-year-old female with a past medical history significant for type 2 diabetes, cellulitis, bilateral TKR, CKD 3A, and RA, who presented to the ED due to atraumatic left ankle pain for 3-4 days. sepsis secondary to cellulitis left lower extremity - WBC 37789, tachycardic, lactic acid normal, not severe sepsis - CRP 11, ESR 85 - left ankle x-ray diffuse cellulitis, negative for osteomyelitis - venous Doppler left lower extremity negative for DVT - UA with 20-50 WBC, pt asx, culture pending - CXR negative - started on vancomycin and ceftriaxone in ED, continue - BP stable, no IVF needed - monitor CBC, BMP, ESR and CRP type 2 diabetes - sliding scale insulin - hold p.o. DM meds - diabetic diet CKD 3a - creatinine at baseline - avoid nephrotoxins when possible - follow BMP RA - continue home meds class 3 obesity - BMI 42.5 - weight loss encouraged DNR/DNI VTE prophylaxis: Lovenox patient with sepsis secondary to cellulitis left lower extremity, requiring admission for at least 2 midnights stay for IV antibiotics and monitoring. Quality Stroke Does the patient have a stroke diagnosis?: No VTE Prior VTE?: No VTE Risk Level:: Medical - moderate - high VTE Device Contraindication: Treatment Not Indicated VTE Drug Contraindication: N/A - Med Ordered
[2024-12-28 02:12] VITALS: BP 97/56; PULSE 89; RESP 20; TEMP 37.2; O2SAT 98
[2024-12-28 04:53] LABS: MANUAL DIFF FLAG NO
[2024-12-28 04:58] LABS: Basophils Percent Auto 0.3 % (0-2); Eosinophils Percent Auto 0.2 % (0-4); Hematocrit 27.2 % (37.0-47.0); Hemoglobin 9.2 g/dl (12.0-16.0); Imm Gran Abs Auto 0.06 X10*3/uL (0.00-0.03); Imm Gran Pct Auto 0.6 % (0.0-0.4); Lymphocytes Absolute Auto 0.5 X10*3/uL (1.2-4.9); Lymphocytes Percent Auto 5.1 % (20-40); Mean Corpuscular HGB Conc 33.8 g/dl (31.0-35.0); Mean Corpuscular Hemoglobin 30.6 pg (27.0-33.0); Mean Corpuscular Volume 90.4 fL (80.0-98.0); Mean Platelet Volume 8.8 fL (9.4-12.3); Monocytes Absolute Auto 0.5 X10*3/uL (0.1-1.2); Monocytes Percent Auto 5.4 % (2-11); Neutrophils Absolute Auto 8.3 x10*3/uL (2.0-8.3); Neutrophils Percent Auto 88.4 % (45-73); Platelet Count 204 X10*3/uL (160-400); Red Blood Count 3.01 X10*6/uL (4.20-5.50); White Blood Count 9.4 X10*3/uL (4.8-10.8)
[2024-12-28 05:11] LABS: Anion Gap 14 (12-20); Blood Urea Nitrogen 31 mg/dL (9-16); C Reactive Protein 18.74 mg/dL (< or = 0.50); Calcium 8.8 mg/dL (8.4-10.2); Carbon Dioxide 22 mmol/L (22-29); Chloride 106 mmol/L (96-108); Creatinine Clr Calc Pharmacy 38.2; Estimated Glomerular Filt Rate 33; Glucose Random 132 mg/dL (60-115); Potassium 3.4 mmol/L (3.3-5.1); Sodium 139 mmol/L (135-145)
[2024-12-28 05:29] LABS: Erythrocyte Sedimentation Rate 92 MM/HR (0-20)
[2024-12-28 07:24] LABS: Glucose, Whole Blood 117 mg/dL (60-115)
[2024-12-28] MEDS: Enoxaparin Sodium 40 MG/0.4 ML SYRINGE SUBCUT (08:19)
[2024-12-28] MEDS: 0.9 % Sodium Chloride Flush 3 ML SYRINGE IVFLUSH ×3 (08:20→20:07)
--- NOTE | 2024-12-28 08:26 | PHA.MEDREC ---
Pharmacy Consult ? Medication Reconciliation Pharmacy has completed the medication reconciliation. Pt brought in all her medication bottles and was a good historian. She takes MXT on Tuesdays.
--- NOTE | 2024-12-28 08:51 | PC.NURSE ---
assumed care of pt this morning. a&ox4, pleasant. sitting at side of her bed with no issue. ate 60% of breakfast tray. nonweight bearing on L ankle, no pain at rest. #20 piv in lfa, patent. no insulin coverage required this am. home med orders requested from hospitalist. assisted back into bed, call wells within reach.
[2024-12-28] MEDS: Multivitamin TABLET 1 TAB PO (10:17)
[2024-12-28] MEDS: glipiZIDE XL 5 MG TAB.ER.24 10 MG PO (10:18)
[2024-12-28] MEDS: Aspirin Enteric Coated 81 MG TABLET.DR PO (10:18)
[2024-12-28] MEDS: Folic Acid 1 MG TABLET PO (10:18)
[2024-12-28] MEDS: Pravastatin Sodium 80 MG TABLET PO (10:48)
--- NOTE | 2024-12-28 11:46 | P.PNIM_ITS ---
Subjective Subjective Date of Service: 12/28/24 Interval History: f/u on sepsis, cellulitis and uti no fever, borderline bp, erythema is better is in the legs Physical Exam 2 Vital Signs: Vital Signs: Last Vital Signs Temp 99 F 12/28/24 02:12 Pulse 89 12/28/24 02:12 Resp 20 12/28/24 02:12 BP 97/56 L 12/28/24 02:12 Pulse Ox 98 12/28/24 02:12 O2 Del Method Room Air 12/28/24 02:12 BMI result Body Mass Index 42.5 Const: Other: The patient is a chronically ill-appearing 74-year-old woman who was awake and alert, pleasant cooperative. She does not seem in acute pain. Resp: Effort & Inspection: normal respiratory effort Auscultation: clear to auscultation bilaterally Cardio: Rate: regular rate Rhythm: regular rhythm Heart sounds: S1 normal heart sound present and S2 normal heart sound present GI: Other: the abdomen is soft and nontender Skin: Other: the patient has a edema to the left lower leg and foot. There are some areas of blotchy erythema and generalized warmth and tenderness to the lower leg and the foot. Neuro: Other: The patient is awake and alert. Mental status is appropriate. She is oriented. Cranial nerves are grossly intact. She seems to have symmetrical strength in her extremities although she seems deconditioned. Extrem: Other: There is a edema to the left lower leg and foot. There are patchy areas of erythema. The leg is warm. She is able to move the knee in the ankle and the toes. Objective Data Active Medications Acetaminophen (Acetaminophen 325 Mg Tablet) 975 mg PO Q6H PRN PRN Reason: Pain, Mild 1-3,fever,headache Aspirin (Aspirin Enteric Coated 81 Mg Tablet.) 81 mg PO DAILY [facility] Last Admin: 12/28/24 10:18 Dose: 81 mg Documented By: KIRK Calcium Carbonate (Calcium Carbonate 750 Mg Tab.Chew) 750 mg PO Q4H PRN PRN Reason: Heartburn Ceftriaxone Sodium (Ceftriaxone Sodium 1 Gm Vial) 1 gm IVPUSH Q24H [facility] Dextrose (Dextrose 50 % 25 Gm/50 Ml Syringe) 25 gm IVPUSH Q15M PRN; Protocol PRN Reason: per Hypoglycemia Standing Ord. Enoxaparin Sodium (Enoxaparin Sodium 40 Mg/0.4 Ml Syringe) 40 mg SUBCUT Q24H [facility] Last Admin: 12/28/24 08:19 Dose: 40 mg Documented By: KIRK Folic Acid (Folic Acid 1 Mg Tablet) 1 mg PO DAILY [facility] Last Admin: 12/28/24 10:18 Dose: 1 mg Documented By: KIRK Glipizide (Glipizide Xl 5 Mg Tab.Er.24) 10 mg PO DAILY [facility] Last Admin: 12/28/24 10:18 Dose: 10 mg Documented By: KIRK Glucose (Glucose Gel 15 Gm Gel..Gram.) 15 gm PO Q15M PRN; Protocol PRN Reason: per Hypoglycemia Standing Ord. Hydrochlorothiazide (Hydrochlorothiazide 25 Mg Tablet) 25 mg PO DAILY [facility]; Protocol Hydromorphone HCl (Hydromorphone Hcl 0.5 Mg/0.5 Ml Syringe) 0.25 mg IVPUSH Q4H PRN; Protocol PRN Reason: Pain, Severe (Pain Scale 7-10) Insulin Human Lispro (Insulin Lispro 100 Unit/Ml 3 Ml Vial) 0 unit SUBCUT QIDACHS [facility]; Protocol Last Admin: 12/28/24 07:25 Dose: Not Given Documented By: KIRK Non-Admin Reason: No Insulin Coverage Losartan Potassium (Losartan Potassium 50 Mg Tablet) 100 mg PO DAILY [facility]; Protocol Magnesium Hydroxide (Milk Of Magnesia 30 Ml Oral.Susp) 30 ml PO DAILY PRN PRN Reason: Constipation Melatonin (Melatonin 3 Mg Tablet) 6 mg PO BEDTIME PRN PRN Reason: Insomnia Methotrexate (Methotrexate Sodium 2.5 Mg Tablet) 7.5 mg PO [facility] [place] Multivitamins/Vitamin C (Multivitamin Tablet) 1 tab PO DAILY [facility] Last Admin: 12/28/24 10:17 Dose: 1 tab Documented By: KIRK Ondansetron HCl (Ondansetron Hcl 4 Mg/2 Ml Vial) 4 mg IVPUSH Q8H PRN PRN Reason: Nausea and Vomiting Oxycodone HCl (Oxycodone Hcl Immed Release 5 Mg Tablet) 5 mg PO Q6H PRN PRN Reason: Pain, Moderate(Pain Scale 4-6) Pravastatin Sodium (Pravastatin Sodium 80 Mg Tablet) 80 mg PO DAILY [facility] Last Admin: 12/28/24 10:48 Dose: 80 mg Documented By: KIRK Sodium Chloride (0.9 % Sodium Chloride Flush 3 Ml Syringe) [facility] Last Admin: 12/28/24 08:20 Dose: 3 ml Documented By: KIRK Labs 12/28/24 04:47 12/28/24 04:47 Labs: Laboratory Results - last 24 hr 12/27/24 12/27/24 12/27/24 19:46 22:21 23:32 MCV 89.4 MCH 30.6 MCHC 34.3 RDW 15.8 Plt Count 230 MPV 8.8 L Immature Gran % (Auto) 0.8 H Neut % (Auto) 87.9 H Lymph % (Auto) 3.4 L [place] % (Auto) 7.6 Eos % (Auto) 0.1 Baso % (Auto) 0.2 Lymph # (Auto) 0.4 L [place] # (Auto) 1.0 Eos # (Auto) 0.0 Baso # (Auto) 0.0 Abs Immat Gran (auto) 0.10 H Absolute Neuts (auto) 11.5 H Absolute Nucleated RBC 0.000 Nucleated RBC % (auto) 0.0 ESR 85 H Anion Gap 16 Estim Creat Clear Calc 38.7 Estimated GFR 34 POC Glucose Random Glucose 164 H Lactic Acid 1.2 Uric Acid 6.0 H Calcium 9.1 C-Reactive Protein 11.54 H B-Natriuretic Peptide 123 H Urine Color Yellow Urine Appearance Turbid Urine pH 6.0 Ur Specific [place] 1.020 Urine Protein 30 (1+) H Urine Glucose (UA) Negative Urine Ketones Trace Urine Blood Moderate (2+) H Urine Nitrite Positive H Ur Leukocyte Esterase Large (3+) H Urine RBC 6-10 H Urine WBC 21-50 H Ur Squamous Epith Cells 11-20 Urine Bacteria 4+ Hyaline Casts 0-2 12/28/24 12/28/24 04:47 07:21 MCV 90.4 MCH 30.6 MCHC 33.8 RDW 16.0 Plt Count 204 MPV 8.8 L Immature Gran % (Auto) 0.6 H Neut % (Auto) 88.4 H Lymph % (Auto) 5.1 L [place] % (Auto) 5.4 Eos % (Auto) 0.2 Baso % (Auto) 0.3 Lymph # (Auto) 0.5 L [place] # (Auto) 0.5 Eos # (Auto) 0.0 Baso # (Auto) 0.0 Abs Immat Gran (auto) 0.06 H Absolute Neuts (auto) 8.3 Absolute Nucleated RBC 0.000 Nucleated RBC % (auto) 0.0 ESR 92 H Anion Gap 14 Estim Creat Clear Calc 38.2 Estimated GFR 33 POC Glucose 117 H Random Glucose 132 H Lactic Acid Uric Acid Calcium 8.8 C-Reactive Protein 18.74 H B-Natriuretic Peptide Urine Color Urine Appearance Urine pH Ur Specific [place] Urine Protein Urine Glucose (UA) Urine Ketones Urine Blood Urine Nitrite Ur Leukocyte Esterase Urine RBC Urine WBC Ur Squamous Epith Cells Urine Bacteria Hyaline Casts Assessment and Plan (1) Sepsis: Status: Acute (2) Cellulitis of left lower extremity: Status: Acute (3) UTI (urinary tract infection): Status: Acute Plan patient is a 74-year-old female with a past medical history significant for type 2 diabetes, cellulitis, bilateral TKR, CKD 3A, and RA, who presented to the ED due to atraumatic left ankle pain for 3-4 days. sepsis secondary to cellulitis left lower extremity and UTI - WBC 70025, tachycardic, lactic acid normal, not severe sepsis - CRP 11, ESR 85 - left ankle x-ray diffuse cellulitis, negative for osteomyelitis - venous Doppler left lower extremity negative for DVT - UA with 20-50 WBC, positive nitroite and larg leuk esterares. Cullture pending - started on vancomycin and ceftriaxone in ED, continue type 2 diabetes - sliding scale insulin -hold metformin and Actose, continue glipizide - diabetic diet CKD 3a - creatinine at baseline - avoid nephrotoxins when possible - follow BMP RA - continue home meds class 3 obesity - BMI 42.5 - weight loss encouraged DNR/DNI VTE prophylaxis: Lovenox patient with sepsis secondary to cellulitis left lower extremity, requiring admission for at least 2 midnights stay for IV antibiotics and monitoring. Quality Stroke Does the patient have a stroke diagnosis?: No VTE Prior VTE?: No VTE Risk Level:: Medical - moderate - high VTE Device Contraindication: Treatment Not Indicated VTE Drug Contraindication: N/A - Med Ordered
[2024-12-28 13:03] LABS: Glucose, Whole Blood 99 mg/dL (60-115)
[2024-12-28 13:28] VITALS: BP 105/61; PULSE 86; RESP 16; TEMP 37.2; O2SAT 99
--- NOTE | 2024-12-28 13:30 | MHC.CM.PN ---
PT ASLEEP AND WOULD NOT WAKE
[2024-12-28 17:26] LABS: Glucose, Whole Blood 81 mg/dL (60-115)
[2024-12-28 18:29] VITALS: BMI 46.4
[2024-12-28] MEDS: Dextrose 50 % 25 GM/50 ML SYRINGE IVPUSH (19:43)
[2024-12-28 19:49] LABS: Glucose, Whole Blood 61 mg/dL (60-115)
[2024-12-28] MEDS: cefTRIAXone sodium 1 GM VIAL IVPUSH ×2 (20:07)
[2024-12-28 20:14] VITALS: BP 127/58; PULSE 82; RESP 18; TEMP 36.9; O2SAT 100
[2024-12-28 20:41] LABS: Glucose, Whole Blood 150 mg/dL (60-115)
[2024-12-28 20:41] LABS: Glucose, Whole Blood 174 mg/dL (60-115)
[2024-12-28 20:41] LABS: Glucose, Whole Blood 177 mg/dL (60-115)
[2024-12-28 23:00] VITALS: BP 122/58; PULSE 83; RESP 20; TEMP 36.8; O2SAT 97
--- NOTE | 2024-12-28 23:18 | HO.SKINPHOTO ---
ADMITTING SKIN PHOTOS Location: INTERGLUTEAL CLEFT Location: left lateral pannus/fold Location: left medial pannus Location: Right pannus
--- NOTE | 2024-12-28 23:22 | PC.NURSE ---
Addendum entered by [place] RN 12/29/24 04:25: Handoff report given to RN taking over care at 03:45. Original Note: Patient admitted to s3 from ED for LLE cellulitis, arrived at 19:00. ACHS POC. Pt with mild shaking noted to arms shortly after settling on arrival. POC obtained showing 61. Pt states she drinks cola every night with dinner which she did not have tonight. Patient was A&Ox4 and denies symptoms other than shaky arms. Covering Dr. Nayak was notified with orders via [employer] to administered IVP D50. Reassessment POCs x3 per MAR were >70. notified with orders to hold ISS tonight. Photos of LLE already in med record. Additional skin photos uploaded in skin note by newswriter. Pt denies pain or acute complaints. Please see admission assessment, tasks, MAR and skin photos for full details. Call wells within reach and educated on use. Bed alarm on. Plan of care implemented.
[2024-12-29 07:16] VITALS: BP 127/62; PULSE 81; RESP 16; TEMP 37.1; O2SAT 99
[2024-12-29 07:22] LABS: MANUAL DIFF FLAG NO
[2024-12-29 07:29] LABS: Basophils Percent Auto 0.4 % (0-2); Eosinophils Absolute Auto 0.1 X10*3/uL (0.0-0.4); Eosinophils Percent Auto 1.8 % (0-4); Hematocrit 26.1 % (37.0-47.0); Hemoglobin 8.6 g/dl (12.0-16.0); Imm Gran Abs Auto 0.04 X10*3/uL (0.00-0.03); Imm Gran Pct Auto 0.5 % (0.0-0.4); Lymphocytes Absolute Auto 0.6 X10*3/uL (1.2-4.9); Lymphocytes Percent Auto 8.5 % (20-40); Mean Corpuscular Hemoglobin 30.8 pg (27.0-33.0); Mean Corpuscular Volume 93.5 fL (80.0-98.0); Mean Platelet Volume 9.4 fL (9.4-12.3); Monocytes Absolute Auto 0.3 X10*3/uL (0.1-1.2); Neutrophils Absolute Auto 6.2 x10*3/uL (2.0-8.3); Neutrophils Percent Auto 84.8 % (45-73); Platelet Count 212 X10*3/uL (160-400); Red Blood Count 2.79 X10*6/uL (4.20-5.50); Red Cell Distribution Width 15.5 % (11.0-16.0); White Blood Count 7.3 X10*3/uL (4.8-10.8)
[2024-12-29 07:30] LABS: Glucose, Whole Blood 92 mg/dL (60-115)
[2024-12-29 07:41] LABS: Anion Gap 13 (12-20); Blood Urea Nitrogen 32 mg/dL (9-16); Calcium 8.8 mg/dL (8.4-10.2); Carbon Dioxide 23 mmol/L (22-29); Chloride 105 mmol/L (96-108); Creatinine Clr Calc Pharmacy 39.7; Estimated Glomerular Filt Rate 33; Glucose Random 100 mg/dL (60-115); Potassium 3.9 mmol/L (3.3-5.1); Sodium 137 mmol/L (135-145)
[2024-12-29] MEDS: hydroCHLOROthiazide 25 MG TABLET PO (09:11)
[2024-12-29] MEDS: Enoxaparin Sodium 40 MG/0.4 ML SYRINGE SUBCUT (09:11)
[2024-12-29] MEDS: Aspirin Enteric Coated 81 MG TABLET.DR PO (09:11)
[2024-12-29] MEDS: Losartan Potassium 50 MG TABLET 100 MG PO (09:12)
[2024-12-29] MEDS: Pravastatin Sodium 80 MG TABLET PO (09:12)
[2024-12-29] MEDS: 0.9 % Sodium Chloride Flush 3 ML SYRINGE IVFLUSH (09:12)
[2024-12-29] MEDS: Folic Acid 1 MG TABLET PO (09:12)
[2024-12-29] MEDS: Multivitamin TABLET 1 TAB PO (09:12)
--- NOTE | 2024-12-29 09:18 | MHC.CM.PN ---
PT LIVES ALONE WITH FAMILY NEXT DOOR PT HAS TRANSPORTAION HOME WHEN DCD DC PLAN HOME NO SERVICES
--- NOTE | 2024-12-29 09:58 | P.DS_ITS ---
DS: Providers Provider Date of Service: 12/29/24 Date of admission: 12/27/24 23:54 Date of discharge: 12/29/24 Primary care physician: Unknown Physician DS: Diagnosis Discharge Diagnosis (1) Sepsis: Status: Acute (2) Cellulitis of left lower extremity: Status: Acute (3) UTI (urinary tract infection): Status: Acute DS: Summary Hospital Course Hospital Course: Admission hpi Chief Complaint: Left ankle pain/swelling patient is a 74-year-old female with a past medical history significant for type 2 diabetes, cellulitis, bilateral TKR, CKD 3A, and RA, who presented to the ED due to atraumatic left ankle pain for 3-4 days. She has had chills but denies any fever, nausea or vomiting. There is a patchy erythematous area LLE. she also has bilateral lower extremity edema. She reports difficulty with ambulation due to her left ankle pain hospital course: Sepsis secondary to cellulitis of the left lower extremity and urinary tract infection. She has been treated with ceftriaxone and vancomycin. Urine and blood cultures have remained negative to date. Initial WBC was 13, now down to 7.3. CRP was 11, ESR was 85. Ultrasound of the leg was negative for DVT. X-ray showed no osteomyelitis but did reveal diffuse cellulitis. The erythema of the leg has resolved. Blood and urine cultures remain negative. I will transition her to oral doxycycline and cefuroxime (Ceftin) to complete a total of 7 days of antibiotics. Anemia of chronic disease * H/H is slightly low but overall stable. Type 2 diabetes * Resume home medications: Actos and glipizide. * Reduce metformin to 500 mg BID in light of CKD with creatinine >1.5 and eGFR of 33. * Follow up with PCP for further medication adjustment. Chronic kidney disease, stage 3a (baseline) Rheumatoid arthritis (RA) * Continue home medications. Class 3 obesity * BMI: 42.5 * Weight loss encouraged. Time Attestation Discharge Coordination Time (in mins): 45 Quality: Safe Use of Opioids Does Pt have an Active Cancer Diagnosis on the Problem List?: No Quality: Stroke Does the patient have a stroke diagnosis?: No Physical Exam Vital Signs: Vital Signs: Last Vital Signs Temp 98.7 F 12/29/24 07:16 Pulse 81 12/29/24 07:16 Resp 16 12/29/24 07:16 BP 127/62 12/29/24 07:16 Pulse Ox 99 12/29/24 07:16 O2 Del Method Room Air 12/29/24 07:16 BMI result Body Mass Index 46.4 Const: Other: The patient is a chronically ill-appearing 74-year-old woman who was awake and alert, pleasant cooperative. She does not seem in acute pain. Resp: Effort & Inspection: normal respiratory effort Auscultation: clear to auscultation bilaterally Cardio: Rate: regular rate Rhythm: regular rhythm Heart sounds: S1 normal heart sound present and S2 normal heart sound present GI: Other: the abdomen is soft and nontender Skin: Other: the patient has a edema to the left lower leg and foot. There are some areas of blotchy erythema and generalized warmth and tenderness to the lower leg and the foot. Neuro: Other: The patient is awake and alert. Mental status is appropriate. She is oriented. Cranial nerves are grossly intact. She seems to have symmetrical strength in her extremities although she seems deconditioned. Extrem: Other: There is a edema to the left lower leg and foot. There are patchy areas of erythema. The leg is warm. She is able to move the knee in the ankle and the toes. DS: Data Data Completed and Pending Labs on day of discharge: Laboratory Results - last 24 hr 12/28/24 12/28/24 12/28/24 13:00 17:18 19:29 WBC RBC Hgb Hct MCV MCH MCHC RDW Plt Count MPV Immature Gran % (Auto) Neut % (Auto) Lymph % (Auto) [place] % (Auto) Eos % (Auto) Baso % (Auto) Lymph # (Auto) [place] # (Auto) Eos # (Auto) Baso # (Auto) Abs Immat Gran (auto) Absolute Neuts (auto) Absolute Nucleated RBC Nucleated RBC % (auto) Sodium Potassium Chloride Carbon Dioxide Anion Gap BUN Creatinine Estim Creat Clear Calc Estimated GFR POC Glucose 99 81 61 Random Glucose Calcium 12/28/24 12/28/24 12/28/24 20:06 20:24 20:38 WBC RBC Hgb Hct MCV MCH MCHC RDW Plt Count MPV Immature Gran % (Auto) Neut % (Auto) Lymph % (Auto) [place] % (Auto) Eos % (Auto) Baso % (Auto) Lymph # (Auto) [place] # (Auto) Eos # (Auto) Baso # (Auto) Abs Immat Gran (auto) Absolute Neuts (auto) Absolute Nucleated RBC Nucleated RBC % (auto) Sodium Potassium Chloride Carbon Dioxide Anion Gap BUN Creatinine Estim Creat Clear Calc Estimated GFR POC Glucose 174 H 150 H 177 H Random Glucose Calcium 12/29/24 12/29/24 07:04 07:18 WBC 7.3 RBC 2.79 L Hgb 8.6 L Hct 26.1 L MCV 93.5 MCH 30.8 MCHC 33.0 RDW 15.5 Plt Count 212 MPV 9.4 Immature Gran % (Auto) 0.5 H Neut % (Auto) 84.8 H Lymph % (Auto) 8.5 L [place] % (Auto) 4.0 Eos % (Auto) 1.8 Baso % (Auto) 0.4 Lymph # (Auto) 0.6 L [place] # (Auto) 0.3 Eos # (Auto) 0.1 Baso # (Auto) 0.0 Abs Immat Gran (auto) 0.04 H Absolute Neuts (auto) 6.2 Absolute Nucleated RBC 0.000 Nucleated RBC % (auto) 0.0 Sodium 137 Potassium 3.9 Chloride 105 Carbon Dioxide 23 Anion Gap 13 BUN 32 H Creatinine 1.55 H Estim Creat Clear Calc 39.7 Estimated GFR 33 POC Glucose 92 Random Glucose 100 Calcium 8.8 Preliminary micro results at discharge 12/27/24 23:39 Blood Culture - Preliminary Blood - Venous No growth after 24 hours. 12/27/24 23:32 Blood Culture - Preliminary Blood - Venous No growth after 24 hours. Discharge Plan Discharge Anticipated Discharge Date/Time: 12/29/24 10:07 Patient Disposition: Home, Self-Care Discharge Diagnosis: Cellulitis of left leg, UTI Referrals: Physician,Unknown J [Primary Care Provider] - 1 Week Discharge Medications: New metformin 500 mg tablet 500 mg PO BIDWMEAL Qty: 180 0RF cefuroxime axetil 500 mg tablet 500 mg PO BID 5 Days Qty: 10 0RF doxycycline monohydrate 100 mg capsule 100 mg PO BID Qty: 14 0RF Continued multivitamin Tablet 1 tab PO DAILY glipizide 10 mg tablet extended release 24hr 10 mg PO DAILY methotrexate sodium 2.5 mg tablet 7.5 mg PO Rx Instructions: 3 tabs once a week takes every wednesday aspirin [Adult Aspirin Regimen] 81 mg tablet,delayed release (DR/EC) 81 mg PO DAILY folic acid 1 mg tablet 1 mg PO DAILY hydrochlorothiazide 25 mg tablet 25 mg PO DAILY losartan 100 mg tablet 100 mg PO DAILY pioglitazone 45 mg tablet 45 mg PO DAILY pravastatin 80 mg tablet 80 mg PO DAILY Discontinued ibuprofen 200 mg Tablet 400 mg PO Q6H PRN (Reason: Pain) metformin 1,000 mg tablet 1,000 mg PO BID Discharge Orders: Discharge Order (Routine); Ordered 12/29/24 Ordered By: Arun Quintanlila Diet: Advance to usual diet Activity on Discharge: As tolerated Stand Alone Forms: Patient Portal Discharge page Print Language: Libyan Care Plan Goals: recovery from cellulitis and uti Health Concerns: uti cellulitis of the leg Plan of Treatment: take cefuroxime and doxycyline as recommended and follow up with your doctor in a week metformin dose has been modified to 500 mg twice due chronic kidney failure, your doctor should repeat kidney lab with the next 3 months Assessment: see above Discharge Date/Time: 12/29/24 13:10
[2024-12-29] MEDS: Acetaminophen 325 MG TABLET 975 MG PO (10:25)
[2024-12-29 11:14] LABS: Glucose, Whole Blood 163 mg/dL (60-115)
--- NOTE | 2024-12-29 11:27 | MHC.CM.PN ---
pt dcd home self care
[2024-12-29 13:06] VITALS: BP 112/57; PULSE 80; RESP 16; TEMP 36.1; O2SAT 97
== END 2024-12-29 13:10 | disposition home or self-care (01) | DRG 872 ==
LOC: HO.ED 12-28 00:08 → HO.EDOVER 12-28 00:27 → HO.S3 12-28 16:57
PROVIDERS: Physician Assistant; Admitting Provider Student in an Organized Health Care Education/Training Program; Emergency Provider Emergency Medicine; Visit Provider Internal Medicine
DX: A41.9 Sepsis, unspecified organism (principal); L03.116 Cellulitis of left lower limb; N39.0 Urinary tract infection, site not specified; Z68.41 Body mass index [BMI] 40.0-44.9, adult; D63.1 Anemia in chronic kidney disease; N18.31 Chronic kidney disease, stage 3a; E66.813 Obesity, class 3; Z66 Do not resuscitate; Z71.3 Dietary counseling and surveillance; E11.22 Type 2 diabetes mellitus with diabetic chronic kidney disease; M06.9 Rheumatoid arthritis, unspecified; Z79.82 Long term (current) use of aspirin; Z79.84 Long term (current) use of oral hypoglycemic drugs; Z79.631 Long term (current) use of antimetabolite agent; Z79.899 Other long term (current) drug therapy
CPT/HCPCS: 36415; 71045; 73610; 80048; 81001; 82947; 83605; 83880; 84550; 85025; 85652; 86140; 86141; 87040; 87086; 87088; 87186; 93971; 99285; J0696; J1650; J3370

== ENCOUNTER → 2024-12-27 19:10 | Outpatient (BNV) | payer MEDICARE, SELFPAY | PROVIDERS: Visit Provider Radiology Diagnostic Radiology | DX: M85.872 Other specified disorders of bone density and structure, left ankle and foot (principal) | CPT/HCPCS: 71045; 73610; 93971 ==

== ENCOUNTER → 2024-12-27 23:54 | Outpatient (BNV) | payer MEDICARE, SELFPAY | PROVIDERS: Admitting Provider Student in an Organized Health Care Education/Training Program; Emergency Provider Emergency Medicine; Visit Provider Physician Assistant | DX: A41.9 Sepsis, unspecified organism (principal); L03.116 Cellulitis of left lower limb; N39.0 Urinary tract infection, site not specified | CPT/HCPCS: 99222; 99239; 99499 ==

== ENCOUNTER 2025-01-10 09:27 | Outpatient (AMB) | payer MEDICARE, SELFPAY ==
--- NOTE | 2025-01-10 09:32 | MHC.OFFVIS ---
Vital Signs 01/10/25 09:44 Height 5 ft 3 in Weight 249 lb 9.012 oz BMI 44.2 BP 120/60 Blood Pressure Location Lt brachial Position Sitting Pulse 83 Pulse Source Pulse Oximeter Pulse Oximetry (%) 100 Oxygen Delivery Method Room Air Intake Visit Reasons: 3 Months Intake Note: Pt present today for rheumatoid arthritis. Patient states she needs the Folic acid and Methotrexate refill, and would like to discuss hospital visit. Allergies novocaine Adverse Reaction (Mild, Uncoded 01/10/25 09:47) shaky, cold IVP dye Adverse Reaction (Unknown, Uncoded 01/10/25 09:47) extremely cold HPI HPI 3 Months: Details: 12/27/2024 she was admitted for sepsis secondary to cellulitis of the left ankle and urinary tract infection. Discharged on abx. Feels well. She continued to take methotrexate when she was on antibiotic. [facility] Medical History (Updated 01/10/25 @ 10:15 by Alon Walsh MD) CKD stage 3a, GFR 45-59 ml/min Rheumatoid arthritis Type 2 diabetes mellitus Surgical History (Updated 01/06/25 @ 00:02 by Ashanti Perez) S/p total knee replacement, bilateral Social History Household Members: None Household Members Other:: 4 cats Housing: House Do you presently have visiting nurse or other home services: No Patient Tobacco Use Status: Former Tobacco user Second Hand Smoke Exposure: No Substance Use Type: Caffiene service: No Physical Exam Vital Signs: Last Vital Signs Pulse 83 01/10/25 09:44 BP 120/60 01/10/25 09:44 Pulse Ox 100 01/10/25 09:44 Oxygen Delivery Method Room Air 01/10/25 09:44 BMI result Body Mass Index 44.2 Const Other: General: Comfortable CVS: RRR Respiratory: clear to auscultation bilaterally. Good respiratory effort Skin: No lesions seen MSK: No tenderness of any joints. No synovitis. Normal range of motion of upper extremities. Bilateral knee flexion 90 degrees. Triggering of left 2nd finger observed. No tenderness or nodule on palmar aspect of 2nd MCPs. Results Reviewed Results Reviewed: labs 12/2024 reviewed. Assessment & Plan Assessment & Plan (1) Rheumatoid arthritis: Comment: Controlled on current regimen. Recent labs reviewed for drug monitoring. Liver function test is missing. 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 Methotrexate started 11/09/2020 to present. History of CKD. Code(s): M06.9 - Rheumatoid arthritis, unspecified Category: Medical Qualifiers: Rheumatoid factor presence: without rheumatoid factor Laterality: bilateral Plan: Labs for drug monitoring ordered -AST and ALT Continue methotrexate 7.5 mg once weekly. If she has recurrence of elevation of LFTs, we will need to hold methotrexate. To methotrexate in the future when she has an infection and is on antibiotics Continue folic acid 1 mg daily Monitoring kidney function closely. If EGFR degrees his less than 30, I will discontinue methotrexate due to risk of toxicity (2) Trigger finger, right index finger: Comment: Intermittent. She also has trigger finger of left index finger. She completed occupational therapy and has splints but is not compliant with it. Code(s): M65.321 - Trigger finger, right index finger Category: Medical Plan: Wear splints at night If symptoms do not improve at follow-up appointment, I will further treat with cortisone injection Return to clinic in 3 months (3) Other ocean transportation intermediary (current) drug therapy: Code(s): Z79.899 - Other care home (current) drug therapy Category: Medical Plan: See above Plan . Orders: Orders Alanine Aminotransferase Today Z79.60 - residential (current) use of unspecified immunomodulators and immunosuppressants Aspartate Amino Transferase Today Z79.60 - residential (current) use of unspecified immunomodulators and immunosuppressants Medications: New folic acid 1 mg PO DAILY 90 tabs 3RF Changed From methotrexate sodium 3 tabs once a week takes every wednesday 7.5 mg PO To methotrexate sodium 3 tabs once a week every Wednesday 7.5 mg (3 x 2.5 mg) PO TU 12 weeks 36 tabs 0RF Coding Level of Care Code Est Pt Level 4 (14472) Complex EM visit Add On G2211 Diagnoses Rheumatoid arthritis M06.9 Rheumatoid factor presence: without rheumatoid factor Laterality: bilateral Trigger finger, right index finger M65.321 Other care home (current) drug therapy Z79.899
[2025-01-10 09:44] VITALS: BP 120/60; PULSE 83; O2SAT 100; BMI 44.2
== END 2025-01-10 10:17 | disposition home or self-care (01) ==
LOC: HO.RHES 09:28
PROVIDERS: PCP Internal Medicine; Visit Provider Internal Medicine Rheumatology
DX: M06.9 Rheumatoid arthritis, unspecified (principal); M65.321 Trigger finger, right index finger; Z79.899 Other long term (current) drug therapy
CPT/HCPCS: 99214; G2211

== ENCOUNTER 2025-01-10 09:27 | Outpatient (REF) | payer MEDICARE, SELFPAY ==
[2025-01-10 18:29] LABS: Alanine Aminotransferase 23 U/L (0-31); Aspartate Amino Transferase 52 U/L (5-31)
== END 2025-01-10 09:28 | disposition home or self-care (01) ==
LOC: HO.HKASLDS 09:27
PROVIDERS: PCP Internal Medicine; Visit Provider Internal Medicine Rheumatology
DX: M06.9 Rheumatoid arthritis, unspecified (principal); M65.321 Trigger finger, right index finger; Z79.60 Long term (current) use of unspecified immunomodulators and immunosuppressants; Z79.899 Other long term (current) drug therapy
CPT/HCPCS: 36415; 84450; 84460; 99212

== ENCOUNTER 2025-02-27 09:34 | Outpatient (REF) | payer MEDICARE, SELFPAY ==
--- OUTSIDE RECORDS SUMMARY | 2025-02-27 10:03 | XMS_ITS | Encounter Summary ---
Author Organization [facility] Address [address] [place] [address] Care Team Providers Care Bulk Receiver Name Role Phone Agueda Orozco MD Primary Care Provider [phone] Encounter Details Date Type Department Care Team (Late st Contact Info) Description 02/15/2025 Lab Requisition [facility] - Main Lab [address] [facility] [place] [phone] Agueda Orozco MD [address] [place], [place] [id number] Type 2 diabetes mellitus without complications (CMS/HCC V24, CMS/HCC V28) Social History Tobacco Use Types Packs/Day Years Used Date Smoking Tobacco: Never Assessed Comments Unknown Sex and Gender Information Value Date Recorded Sex Assigned at Female 02/19/2025 9:48 AM EDT Legal Sex Female 8:29 AM EDT Gender Identity Female 02/19/2025 9:48 AM EDT Sexual Orientation Straight 02/19/2025 9: 48 AM EDT documented as of this encounter Plan of Treatment Not on file documented as of this encounter Procedures Procedure Name Priority Date/Time Associated Diagnosis Comments COMPLETE BLOOD COUNT Routine 02/16/2025 5:01 AM EDT Type 2 diabetes mellitus without complications (CMS/HCC V24, CMS/HCC V28) BASIC METABOLIC PANEL Routine 02/16/2025 5:01 AM EDT Type 2 diabetes mellitus without complications (CMS/HCC V24, CMS/HCC V28) documented in this encounter Results * (ABNORMAL) Complete blood count (02/16/2025 5:01 AM EDT) [facility] WBC 6.9 4.8 - 10.8 K/mcL LAB HEMETOLOGY METHOD 02/16/2025 9:[address] [facility] RBC 2.20(L) 3.80 - 4.80 M/mcL LAB HEMETOLOGY METHOD 02/16/2025 9:[address] [facility] Hemoglobin 6.6(L) 11.5 - 16.0 g/dL LAB HEMETOLOGY METHOD 02/16/2025 9:[address] [facility] Hematocrit 21.3(L) 35.0 - 47.0 % LAB HEMETOLOGY METHOD 02/16/2025 9:[address] [facility] MCV 96.4 79.0 - 98.0 FL LAB HEMETOLOGY METHOD 02/16/2025 9:[address] [facility] MCH 29.9 27.0 - 32.0 pcg LAB HEMETOLOGY METHOD 02/16/2025 9:[address] [facility] MCHC 31.0(L) 32.0 - 37.0 g/dL LAB HEMETOLOGY METHOD 02/16/2025 9:[address] [facility] RDW 15.3(H) 11.0 - 15.0 % LAB HEMETOLOGY METHOD 02/16/2025 9:[address] [facility] Platelets 359 130 - 400 K/mcL LAB HEMETOLOGY METHOD 02/16/2025 9:[address] [facility] MPV 9.1 7.0 - 11.0 FL LAB HEMETOLOGY METHOD 02/16/2025 9:[address] [facility] NRBC 0.0 <1.0 % LAB HEMETOLOGY METHOD 02/16/2025 9:[address] [facility] NRBC Absolute 0.00 <0.10 K/mcL LAB HEMETOLOGY METHOD 02/16/2025 9:[address] [facility] Blood Venous blood specimen / Unknown Venipuncture / Unknown 02/16/2025 5:01 AM EDT 02/16/2025 8:35 AM EDT us Agueda Orozco MD LAB BLOOD ORDERABLES Final Resul t [facility] [address] [place] [address], [place] [phone] * (ABNORMAL) Basic metabolic panel (02/16/2025 5:01 AM EDT) Sodium 138 133 - 145 mmol/L LAB CHEMISTRY METHOD 02/16/2025 9:[address] [facility] Potassium 4.3 3.5 - 5.5 mmol/L LAB CHEMISTRY METHOD 02/16/2025 9:[address] [facility] Chloride 106 96 - 110 mmol/L LAB CHEMISTRY METHOD 02/16/2025 9:[address] [facility] CO2 25 21 - 32 mmol/L LAB CHEMISTRY METHOD 02/16/2025 9:[address] [facility] Anion Gap 7 3 - 11 LAB CHEMISTRY METHOD 02/16/2025 9:[address] [facility] Glucose 89 70 - 100 mg/dL LAB CHEMISTRY METHOD 02/16/2025 9:[address] [facility] BUN 31(H) 5 - 25 mg/dL LAB CHEMISTRY METHOD 02/16/2025 9:[address] [facility] Creatinine 1.49(H) 0.50 - 1.10 mg/dL LAB CHEMISTRY METHOD 02/16/2025 9:[address] [facility] eGFR 37(L) >=60 mL/min/1. 73m2 LAB CHEMISTRY METHOD 02/16/2025 9:30 AM EDT [facility] Comment:Calculation based on the Chronic Kidney Disease Epidemiology Collaboration (CKD-EPI) equation refit without adjustment for race. BUN/Creatinine Ratio 20.8 LAB CHEMISTRY METHOD 02/16/2025 9:30 AM EDT [facility] Calcium 8.1(L) 8.5 - 10.5 mg/dL LAB CHEMISTRY METHOD 02/16/2025 9:30 AM EDT [facility] Blood Venous blood specimen / Unknown Venipuncture / Unknown 02/16/2025 5:01 AM EDT 02/16/2025 8:35 AM EDT Agueda Orozco MD LAB BLOOD ORDERABLES Final Resul t [facility] [address] [place] [address], documented in this encounter Visit Diagnoses Diagnosis Type 2 diabetes mellitus without complications (CMS/HCC V24, CMS/HCC V28) documented in this encounter Care Teams Bulk Receiver Relationship Specialty Start Date End Date Agueda Orozco MD [address] [place] [address] [address] [place] [address] PCP - General Geriatric Medicine 02/06/25 documented as of this encounter
[2025-02-27 11:08] LABS: Alanine Aminotransferase 43 U/L (0-31); Aspartate Amino Transferase 36 U/L (5-31)
== END 2025-02-27 09:35 | disposition home or self-care (01) ==
LOC: HO.LAB 09:34
PROVIDERS: PCP Internal Medicine Rheumatology; Visit Provider Internal Medicine Rheumatology
DX: Z79.60 Long term (current) use of unspecified immunomodulators and immunosuppressants (principal)
CPT/HCPCS: 36415; 84450; 84460

== ENCOUNTER 2025-03-30 10:38 | Outpatient (REF) | payer MEDICARE, SELFPAY ==
--- OUTSIDE RECORDS SUMMARY | 2025-03-30 10:42 | XMS_ITS | Encounter Summary ---
Author Organization [facility] Address [address] [place] [address] Care Team Providers Care Business Investor Name Role Phone Agueda Orozco MD Primary Care Provider [phone] Encounter Details Date Type Department Care Team (Late st Contact Info) Description 03/01/2025 Lab Requisition [facility] - Main Lab [address] [facility] [place] [address] Agueda Orozco MD [address] [place], [place] [phone] Type 2 diabetes mellitus without complications (CMS/HCC [...] on file documented as of this encounter Visit Diagnoses Diagnosis Type 2 diabetes mellitus without complications (CMS/HCC V24, CMS/HCC V28) documented in this encounter Care Teams Business Investor Relationship Specialty Start Date End Date Agueda Orozco MD [address] [place], [place] [phone] PCP - General Geriatric Medicine 02/06/25 documented as of this encounter
[2025-03-30 12:30] LABS: Alanine Aminotransferase 11 U/L (0-31); Albumin Level 3.7 g/dL (3.5-5.0); Alkaline Phosphatase 88 U/L (39-117); Aspartate Amino Transferase 27 U/L (5-31); Total Protein 7.0 g/dL (6.5-8.0)
== END 2025-03-30 10:39 | disposition home or self-care (01) ==
LOC: HO.LAB 10:38
PROVIDERS: PCP Internal Medicine; Visit Provider Internal Medicine Rheumatology
DX: R74.01 Elevation of levels of liver transaminase levels (principal)
CPT/HCPCS: 36415; 80076

== ENCOUNTER 2025-04-12 08:34 | Outpatient (AMB) | payer MEDICARE, SELFPAY ==
--- NOTE | 2025-04-12 08:39 | A.OFFVIS_ITS ---
Vital Signs 04/12/25 08:41 Height 5 ft 3 in Weight 242 lb 11.663 oz BMI 43.0 BP 160/110 H Blood Pressure Location Lt brachial Position Sitting Pulse 104 H Pulse Source Pulse Oximeter Pulse Oximetry (%) 99 Oxygen Delivery Method Room Air Intake Visit Reasons: 3 Months Intake Note: Pt present today for rheumatoid arthritis. Accompanied by: Self / Same As Patient Allergies novocaine Adverse Reaction (Mild, Uncoded 01/10/25 09:47) shaky, cold IVP dye Adverse Reaction (Unknown, Uncoded 01/10/25 09:47) extremely cold HPI HPI 3 Months: Details: She fell down her stairs and hit her head on the wall at the bottom of the [employer] tairs. Her blood pressure was lower than usual. She was feeling tired. She was admitted to [facility]. She had 1 unit PRBC hb [address] [facility]. She was in rehab. She feels a little unbalanced but it is improving. She lost 30 lb. She has had spontaneous on tests of left elbow pain that occurs with activity and response to rest. It may occur every couple of days. [facility] Medical History CKD stage 3a, GFR 45-59 ml/min Rheumatoid arthritis Type 2 diabetes mellitus Surgical History S/p total knee replacement, bilateral Social History Household Members: None Household Members Other:: 4 cats Housing: House Do you presently have visiting nurse or other home services: No Patient Tobacco Use Status: Former Tobacco user Second Hand Smoke Exposure: No Substance Use Type: Caffiene service: No Physical Exam Vital Signs: Last Vital Signs Pulse 104 H 04/12/25 08:41 BP 160/110 H 04/12/25 08:41 Pulse Ox 99 04/12/25 08:41 Oxygen Delivery Method Room Air 04/12/25 08:41 BMI result Body Mass Index 43.0 Const Other: General: Comfortable CVS: RRR Respiratory: clear to auscultation bilaterally. Good respiratory effort Skin: No lesions seen MSK: She has developed synovitis of right 2nd to 3rd MCP with tenderness on palpation. Tender left medial epicondyle without pain with resisted wrist flexion. Normal range of motion of upper extremities. Bilateral knee flexion 90 degrees. No tenderness of ankles or MTPs. Assessment & Plan Assessment & Plan (1) Rheumatoid arthritis: Comment: Uncontrolled due to recent interruption of methotrexate because of concern for drug-induced transaminitis. In December she had mild transaminitis, which persisted in February. Transaminitis resolved with repeat testing in March. She resumed methotrexate last week. She also has had worsening normocytic anemia since June 2024 requiring 1 unit of packed red blood cells during a recent hospitalization. Methotrexate can rarely cause anemia. She will be following up with PCP for further evaluation. She had a colonoscopy within the last 5 years. I recommended considering repeat colonoscopy with endoscopy for further evaluation of worsening anemia. 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 Methotrexate started 11/09/2020 to present. History of CKD. Code(s): M06.9 - Rheumatoid arthritis, unspecified Category: Medical Qualifiers: Laterality: bilateral Rheumatoid factor presence: without rheumatoid factor Plan: Labs for drug monitoring ordered Continue methotrexate 7.5 mg once weekly. If she has recurrence of elevation of LFTs, I will need to change DMARD therapy. I will consider leflunomide when LFTs normalized. If hemoglobin is close to 7, I will have her discontinue methotrexate Increase folic acid to 2 mg daily Prednisone course prescribed Monitoring kidney function closely. If EGFR degrees his less than 30, I will discontinue methotrexate due to risk of toxicity Return to clinic in 3 months (2) Other skilled nursing (current) drug therapy: Code(s): Z79.899 - Other predatory animal exterminator (current) drug therapy Category: Medical Plan: See above (3) Medial epicondylitis, left elbow: Comment: Presumed, mild. Intermittent pain. Code(s): M77.02 - Medial epicondylitis, left elbow Category: Medical Plan: She will call office after prednisone course if left elbow pain persists. I will then prescribed elbow support band and OT. Return to clinic in 3 months Plan . Orders: Orders C Reactive Protein Today Z79.899 - Other predatory animal exterminator (current) drug therapy IRON PROFILE Today D50.9 - Iron deficiency anemia, unspecified Transferrin Today D50.9 - Iron deficiency anemia, unspecified Complete Blood Count Auto Diff Today Z79.899 - Other skilled nursing (current) drug therapy Alanine Aminotransferase Today Z79.899 - Other predatory animal exterminator (current) drug therapy Aspartate Amino Transferase Today Z79.899 - Other predatory animal exterminator (current) drug therapy Creatinine Today Z79.899 - Other skilled nursing (current) drug therapy Erythrocyte Sedimentation Rate Today Z79.899 - Other predatory animal exterminator (current) drug therapy Ferritin Today D50.9 - Iron deficiency anemia, unspecified Medications: New prednisone Take 3 tablets daily 3 days, 2 tablets daily 3 days, 1 tablet daily 3 days then stop. 5 mg PO DIRECTED 18 tabs 0RF Changed From folic acid 1 mg PO DAILY 90 tabs 3RF To folic acid 2 mg (2 x 1 mg) PO DAILY 180 tabs 3RF Coding Level of Care Code Est Pt Level 4 (62400) Complex EM visit Add On G2211 Diagnoses Rheumatoid arthritis M06.9 Laterality: bilateral Rheumatoid factor presence: without rheumatoid factor Other skilled nursing (current) drug therapy Z79.899 Medial epicondylitis, left elbow M77.02
[2025-04-12 08:41] VITALS: BP 160/110; PULSE 104; O2SAT 99; BMI 43.0
--- OUTSIDE RECORDS SUMMARY | 2025-04-12 09:29 | XMS_ITS | Encounter Summary ---
Author Organization [facility] Address [address] [place] [id number] Phone Care Team Providers Care Analytics Associate Name Role Phone Rohith Sutton MD Primary Care Provider [phone] Encounter Details Date Type Department Care Team (Late st Contact Info) Description 07/27/2017 Procedure Pass OR Admitting Dept - Virtual Department [address] [place] [address] Social History Tobacco Use Types Packs/Day Years Used Date Smoking Tobacco: Former Cigarettes Q uit: 1970 Smokeless Tobacco: Never Alcohol Use Standard Drinks/Week Comments Yes 0 (1 standard drink = 0.6 oz pur e alcohol) ocasionally Comments Unknown Sex and Gender Information Value Date Recorded Sex Assigned at Female 07/18/2019 4:10 PM EST Legal Sex Female 4:21 PM EST Gender Identity Female 07/18/2019 4:10 PM EST Sexual Orientation Not on file documented as of this encounter Plan of Treatment Not on file documented as of this encounter Visit Diagnoses Not on filedocumented in this encounter Care Teams Analytics Associate Relationship Specialty Start Date End Date Rohith Sutton MD [address] [place] [id number] PCP - General 06/10/17 documented as of this encounter Additional Source Comments The information contained in this document represents components of the legal health record. It is not the complete legal health record.[facility]
--- OUTSIDE RECORDS SUMMARY | 2025-04-12 09:29 | XMS_ITS | Encounter Summary ---
Author Organization [facility] Address [id number] [place] [address] Care Team Providers Care Internal Combustion Engineer Name Role Phone Agueda Orozco MD Primary Care Provider [phone] Encounter Details Date Type Department Care Team (Late st Contact Info) Description 02/06/2025 Lab Requisition [facility] - Main Lab 299 [facility] [place] [address] Agueda Orozco MD [address] [place], [place] [id number] Type 2 diabetes mellitus without complications (CMS/HCC V24, CMS/HCC V28); Rheumatoid arthritis, unspecified (CMS/HCC V24, CMS/HCC V28); Chronic kidney disease, unspecified; Essential (primary) hypertension; Hypothyroidism, unspecified; Hyperlipidemia, unspecified Social History Tobacco Use Types Packs/Day Years [...] Associated Diagnosis Comments COMPLETE BLOOD COUNT Routine 02/06/2025 6:44 AM EDT Type 2 diabetes mellitus without complications (CMS/HCC V24, CMS/HCC V28) Rheumatoid arthritis, unspecified (CMS/HCC V24, CMS/HCC V28) Chronic kidney disease, unspecified Essential (primary) hypertension Hypothyroidism, unspecified Hyperlipidemia, unspecified THYROID STIMULATING HORMONE Routine 02/06/2025 6:44 AM EDT Type 2 diabetes mellitus without complications (CMS/HCC V24, CMS/HCC V28) Rheumatoid arthritis, unspecified (CMS/HCC V24, CMS/HCC V28) Chronic kidney disease, unspecified Essential (primary) hypertension Hypothyroidism, unspecified Hyperlipidemia, unspecified FOLATE Routine 02/06/2025 6:44 AM EDT Type 2 diabetes mellitus without complications (CMS/HCC V24, CMS/HCC V28) Rheumatoid arthritis, unspecified (CMS/HCC V24, CMS/HCC V28) Chronic kidney disease, unspecified Essential (primary) hypertension Hypothyroidism, unspecified Hyperlipidemia, unspecified VITAMIN B12 Routine 02/06/2025 6:44 AM EDT Type 2 diabetes mellitus without complications (CMS/HCC V24, CMS/HCC V28) Rheumatoid arthritis, unspecified (CMS/HCC V24, CMS/HCC V28) Chronic kidney disease, unspecified Essential (primary) hypertension Hypothyroidism, unspecified Hyperlipidemia, unspecified BASIC METABOLIC PANEL Routine 02/06/2025 6:44 AM EDT Type 2 diabetes mellitus without complications (CMS/HCC V24, CMS/HCC V28) Rheumatoid arthritis, unspecified (CMS/HCC V24, CMS/HCC V28) Chronic kidney disease, unspecified Essential (primary) hypertension Hypothyroidism, unspecified Hyperlipidemia, unspecified documented in this encounter Results * (ABNORMAL) Vitamin B12 (02/06/2025 6:44 AM EDT) [facility] Vitamin B-12 206(L) 250 - 900 pcg/mL LAB CHEMISTRY METHOD 02/06/2025 10:01 AM EDT [facility] Blood Venous blood specimen / Unknown Venipuncture / Unknown 02/06/2025 6:44 AM EDT 02/06/2025 8:36 AM EDT Agueda Orozco MD LAB BLOOD ORDERABLES Final Resul t Performing Organization Address [facility] Co de Phone Number [facility] [address] [place] [address], * (ABNORMAL) Folate (02/06/2025 6:44 AM EDT) Pathologist [facility] Folate >20.0(H) 2.8 - 17.0 ng/ml LAB CHEMISTRY METHOD 02/06/2025 10:01 AM EDT [facility] Blood Venous blood specimen / Unknown Venipuncture / Unknown 02/06/2025 6:44 AM EDT 02/06/2025 8:36 AM EDT us Agueda Orozco MD LAB BLOOD ORDERABLES Final Resul t Performing Organization Address [facility] de Phone Number [facility] [address] [place] [address], * Thyroid stimulating hormone (02/06/2025 6:44 AM EDT) [facility] TSH 3.26 0.40 - 4.00 mcIU/mL LAB CHEMISTRY METHOD 02/06/2025 10:27 AM EDT [facility] Blood Venous blood specimen / Unknown Venipuncture / Unknown 02/06/2025 6:44 AM EDT 02/06/2025 8:36 AM EDT us Agueda Orozco MD LAB BLOOD ORDERABLES Final Resul t Performing Organization Address [facility] de Phone Number [facility] [address] [place] [address], [place] [phone] * (ABNORMAL) Basic metabolic panel (02/06/2025 6:44 AM EDT) Pathologist [facility] Sodium 138 133 - 145 mmol/L LAB CHEMISTRY METHOD 02/06/2025 9:37 AM EDT [facility] Potassium 4.0 3.5 - 5.5 mmol/L LAB CHEMISTRY METHOD 02/06/2025 9:37 AM [facility] Chloride 105 96 - 110 mmol/L LAB CHEMISTRY METHOD 02/06/2025 9:37 AM [facility] CO2 25 21 - 32 mmol/L LAB CHEMISTRY METHOD 02/06/2025 9:37 AM [facility] Anion Gap 8 3 - 11 LAB CHEMISTRY METHOD 02/06/2025 9:37 AM [facility] Glucose 159(H) 70 - 100 mg/dL LAB CHEMISTRY METHOD 02/06/2025 9:37 AM [facility] BUN 27(H) 5 - 25 mg/dL LAB CHEMISTRY METHOD 02/06/2025 9:37 AM [facility] Creatinine 1.67(H) 0.50 - 1.10 mg/dL LAB CHEMISTRY METHOD 02/06/2025 9:37 AM [facility] eGFR 32(L) >=60 mL/min/1. 73m2 LAB CHEMISTRY METHOD 02/06/2025 9:37 AM [facility] Comment:Calculation based on the Chronic Kidney Disease Epidemiology Collaboration (CKD-EPI) equation refit without adjustment for race. BUN/Creatinine Ratio 16.2 LAB CHEMISTRY METHOD 02/06/2025 9:37 AM [facility] Calcium 8.0(L) 8.5 - 10.5 mg/dL LAB CHEMISTRY METHOD 02/06/2025 9:37 AM [facility] Blood Venous blood specimen / Unknown Venipuncture / Unknown 02/06/2025 6:44 AM EDT 02/06/2025 8:36 AM EDT us Agueda Orozco MD LAB BLOOD ORDERABLES Final Resul t [facility] [address] [place] [address], * (ABNORMAL) Complete blood count (02/06/2025 6:44 AM EDT) [facility] WBC 6.8 4.8 - 10.8 K/mcL LAB HEMETOLOGY METHOD 02/06/2025 9:05 AM [facility] RBC 2.30(L) 3.80 - 4.80 M/mcL LAB HEMETOLOGY METHOD 02/06/2025 9:05 AM [facility] Hemoglobin 7.3(L) 11.5 - 16.0 g/dL LAB HEMETOLOGY METHOD 02/06/2025 9:05 AM [facility] Hematocrit 22.2(L) 35.0 - 47.0 % LAB HEMETOLOGY METHOD 02/06/2025 9:05 AM [facility] MCV 96.5 79.0 - 98.0 FL LAB HEMETOLOGY METHOD 02/06/2025 9:05 AM [facility] MCH 31.7 27.0 - 32.0 pcg LAB HEMETOLOGY METHOD 02/06/2025 9:05 AM [facility] MCHC 32.9 32.0 - 37.0 g/dL LAB HEMETOLOGY METHOD 02/06/2025 9:05 AM [facility] RDW 15.6(H) 11.0 - 15.0 % LAB HEMETOLOGY METHOD 02/06/2025 9:05 AM [facility] Platelets 226 130 - 400 K/mcL LAB HEMETOLOGY METHOD 02/06/2025 9:05 AM [facility] MPV 9.5 7.0 - 11.0 FL LAB HEMETOLOGY METHOD 02/06/2025 9:05 AM [facility] NRBC 0.0 <1.0 % LAB HEMETOLOGY METHOD 02/06/2025 9:05 AM EDT [facility] NRBC Absolute 0.00 <0.10 K/mcL LAB HEMETOLOGY METHOD 02/06/2025 9:05 AM EDT [facility] Blood Venous blood specimen / Unknown Venipuncture / Unknown 02/06/2025 6:44 AM EDT 02/06/2025 8:36 AM EDT us Agueda Orozco MD LAB BLOOD ORDERABLES Final Resul t [facility] [address] [place] [address], documented in this encounter Visit Diagnoses Diagnosis Type 2 diabetes mellitus without complications (CMS/HCC V24, CMS/HCC V28) Rheumatoid arthritis, unspecified (CMS/HCC V24, CMS/[facility] V28) Chronic kidney disease, unspecified Essential (primary) hypertension Unspecified essential hypertension Hypothyroidism, unspecified Hyperlipidemia, unspecified documented in this encounter Care Teams Internal Combustion Engineer Relationship Specialty Start Date End Date Agueda Orozco MD [address] [place] [address] [address] [place] [address] PCP - General Geriatric Medicine 02/06/25 documented as of this encounter
== END 2025-04-12 09:18 | disposition home or self-care (01) ==
PROVIDERS: PCP Internal Medicine; Visit Provider Internal Medicine Rheumatology
DX: M06.9 Rheumatoid arthritis, unspecified (principal); Z79.899 Other long term (current) drug therapy; M77.02 Medial epicondylitis, left elbow
CPT/HCPCS: 99214; G2211

== ENCOUNTER 2025-04-12 08:34 | Outpatient (REF) | payer MEDICARE, SELFPAY ==
[2025-04-12 11:25] LABS: MANUAL DIFF FLAG NO
[2025-04-12 11:56] LABS: Hematocrit 32.5 % (37.0-47.0); Hemoglobin 10.7 g/dl (12.0-16.0); Imm Gran Abs Auto 0.02 X10*3/uL (0.00-0.03); Imm Gran Pct Auto 0.4 % (0.0-0.4); Lymphocytes Absolute Auto 0.7 X10*3/uL (1.2-4.9); Mean Corpuscular HGB Conc 32.9 g/dl (31.0-35.0); Mean Corpuscular Hemoglobin 28.7 pg (27.0-33.0); Mean Corpuscular Volume 87.1 fL (80.0-98.0); NRBC Abs Auto 0.000 X10*3/uL (0.0-0.012); NRBC Pct Auto 0.0 /100WBC (0.0-0.2); Platelet Count 326 X10*3/uL (160-400); Red Blood Count 3.73 X10*6/uL (4.20-5.50); White Blood Count 4.5 X10*3/uL (4.8-10.8)
[2025-04-12 12:27] LABS: Alanine Aminotransferase 19 U/L (0-31); Aspartate Amino Transferase 39 U/L (5-31); Estimated Glomerular Filt Rate 35; Iron 72 mcg/dL (30-160); Percent Iron Saturation 27 % (15-50); Total Iron Binding Capacity 271 mcg/dL (228-428); Unsaturated Iron Binding 199 ug/dL
[2025-04-12 12:44] LABS: Ferritin 137 ng/mL (10-250)
[2025-04-13 08:58] LABS: Transferrin 255 mg/dL (188-341)
== END 2025-04-12 08:35 | disposition home or self-care (01) ==
LOC: HO.LAB 08:34
PROVIDERS: PCP Internal Medicine; Visit Provider Internal Medicine Rheumatology
DX: M06.9 Rheumatoid arthritis, unspecified (principal); M77.02 Medial epicondylitis, left elbow; D50.9 Iron deficiency anemia, unspecified; Z79.899 Other long term (current) drug therapy; Z79.631 Long term (current) use of antimetabolite agent
CPT/HCPCS: 36415; 82565; 82728; 83540; 84450; 84460; 84466; 85025; 85652; 86140; 99212

== ENCOUNTER 2025-05-14 10:28 | Outpatient (REF) | payer MEDICARE, SELFPAY ==
[2025-05-14 11:01] LABS: MANUAL DIFF FLAG NO
[2025-05-14 11:55] LABS: Hematocrit 31.6 % (37.0-47.0); Hemoglobin 10.2 g/dl (12.0-16.0); Imm Gran Abs Auto 0.03 X10*3/uL (0.00-0.03); Imm Gran Pct Auto 0.7 % (0.0-0.4); Lymphocytes Absolute Auto 0.7 X10*3/uL (1.2-4.9); Mean Corpuscular HGB Conc 32.3 g/dl (31.0-35.0); Mean Corpuscular Hemoglobin 28.1 pg (27.0-33.0); Mean Corpuscular Volume 87.1 fL (80.0-98.0); NRBC Abs Auto 0.000 X10*3/uL (0.0-0.012); NRBC Pct Auto 0.0 /100WBC (0.0-0.2); Platelet Count 292 X10*3/uL (160-400); Red Blood Count 3.63 X10*6/uL (4.20-5.50); White Blood Count 4.4 X10*3/uL (4.8-10.8)
[2025-05-14 12:35] LABS: Alanine Aminotransferase 16 U/L (0-31); Aspartate Amino Transferase 27 U/L (5-31)
--- OUTSIDE RECORDS SUMMARY | 2025-05-14 12:47 | XMS_ITS | Encounter Summary ---
Author Organization [facility] Address [address] [place] [address] Care Team Providers Care Junior Web Designer Name Role Phone Agueda Orozco MD Primary Care Provider [phone] Encounter Details Date Type Department Care Team (Late st Contact Info) Description 02/08/2025 Lab Requisition [facility] - Main Lab 299 [facility] [place] [phone] Agueda Orozco MD [address] [place], [place] [phone] Type 2 diabetes mellitus without complications (CMS/HCC [...] Associated Diagnosis Comments COMPLETE BLOOD COUNT Routine 02/09/2025 6:26 AM EDT Type 2 diabetes mellitus without complications (CMS/HCC V24, CMS/HCC V28) BASIC METABOLIC PANEL Routine 02/09/2025 6:26 AM EDT Type 2 diabetes mellitus without complications (CMS/HCC V24, CMS/HCC V28) documented in this encounter Results * (ABNORMAL) Complete blood count (02/09/2025 6:26 AM EDT) [facility] WBC 6.6 4.8 - 10.8 K/mcL LAB HEMETOLOGY METHOD 02/09/2025 9:34 AM [facility] RBC 2.30(L) 3.80 - 4.80 M/mcL LAB HEMETOLOGY METHOD 02/09/2025 9:34 AM [facility] Hemoglobin 6.7(L) 11.5 - 16.0 g/dL LAB HEMETOLOGY METHOD 02/09/2025 9:34 AM [facility] Hematocrit 21.5(L) 35.0 - 47.0 % LAB HEMETOLOGY METHOD 02/09/2025 9:34 AM [facility] MCV 95.1 79.0 - 98.0 FL LAB HEMETOLOGY METHOD 02/09/2025 9:34 AM [facility] MCH 29.6 27.0 - 32.0 pcg LAB HEMETOLOGY METHOD 02/09/2025 9:34 AM [facility] MCHC 31.2(L) 32.0 - 37.0 g/dL LAB HEMETOLOGY METHOD 02/09/2025 9:34 AM [facility] RDW 15.7(H) 11.0 - 15.0 % LAB HEMETOLOGY METHOD 02/09/2025 9:34 AM [facility] Platelets 275 130 - 400 K/mcL LAB HEMETOLOGY METHOD 02/09/2025 9:34 AM [facility] MPV 9.6 7.0 - 11.0 FL LAB HEMETOLOGY METHOD 02/09/2025 9:34 AM [facility] NRBC 0.0 <1.0 % LAB HEMETOLOGY METHOD 02/09/2025 9:34 AM [facility] NRBC Absolute 0.00 <0.10 K/mcL LAB HEMETOLOGY METHOD 02/09/2025 9:34 AM [facility] Blood Venous blood specimen / Unknown Venipuncture / Unknown 02/09/2025 6:26 AM EDT 02/09/2025 9:15 AM EDT us Agueda Orozco MD LAB BLOOD ORDERABLES Final Resul t [facility] [address] [place] [address], [place] [phone] * (ABNORMAL) Basic metabolic panel (02/09/2025 6:26 AM EDT) Sodium 137 133 - 145 mmol/L LAB CHEMISTRY METHOD 02/09/2025 10:20 AM [facility] Potassium 3.9 3.5 - 5.5 mmol/L LAB CHEMISTRY METHOD 02/09/2025 10:20 AM [facility] Chloride 104 96 - 110 mmol/L LAB CHEMISTRY METHOD 02/09/2025 10:20 AM [facility] CO2 22 21 - 32 mmol/L LAB CHEMISTRY METHOD 02/09/2025 10:20 AM [facility] Anion Gap 11 3 - 11 LAB CHEMISTRY METHOD 02/09/2025 10:20 AM [facility] Glucose 85 70 - 100 mg/dL LAB CHEMISTRY METHOD 02/09/2025 10:20 AM [facility] BUN 37(H) 5 - 25 mg/dL LAB CHEMISTRY METHOD 02/09/2025 10:20 AM [facility] Creatinine 1.47(H) 0.50 - 1.10 mg/dL LAB CHEMISTRY METHOD 02/09/2025 10:20 AM [facility] eGFR 37(L) >=60 mL/min/1. 73m2 LAB CHEMISTRY METHOD 02/09/2025 10:20 AM EDT [facility] Comment:Calculation based on the Chronic Kidney Disease Epidemiology Collaboration (CKD-EPI) equation refit without adjustment for race. BUN/Creatinine Ratio 25.2 LAB CHEMISTRY METHOD 02/09/2025 10:20 AM EDT [facility] Calcium 8.0(L) 8.5 - 10.5 mg/dL LAB CHEMISTRY METHOD 02/09/2025 10:20 AM EDT [facility] Blood Venous blood specimen / Unknown Venipuncture / Unknown 02/09/2025 6:26 AM EDT 02/09/2025 9:15 AM EDT Agueda Orozco MD LAB BLOOD ORDERABLES Final Resul t [facility] [address] [place] [address], documented in this encounter Visit Diagnoses Diagnosis Type 2 diabetes mellitus without complications (CMS/HCC V24, CMS/HCC V28) documented in this encounter Care Teams Junior Web Designer Relationship Specialty Start Date End Date Agueda Orozco MD [address] [place] [address] [address] [place] [address] PCP - General Geriatric Medicine 02/06/25 documented as of this encounter
--- OUTSIDE RECORDS SUMMARY | 2025-05-14 12:47 | XMS_ITS | Encounter Summary ---
Author Organization [facility] Address [address] [place] [address] Care Team Providers Care Signal Technician Name Role Phone Agueda Orozco MD Primary Care Provider [phone] Encounter Details Date Type Department Care Team (Late st Contact Info) Description 02/15/2025 Lab Requisition [facility] - Main Lab [address] [facility] [place] [phone] Agueda Orozco MD [address] [place], [place] [id number] Type 2 diabetes mellitus without complications (CMS/HCC [...] Complete blood count (02/16/2025 5:01 AM EDT) [facility] WBC 6.9 4.8 - 10.8 K/mcL LAB HEMETOLOGY METHOD 02/16/2025 9:06 AM [facility] RBC 2.20(L) 3.80 - 4.80 M/mcL LAB HEMETOLOGY METHOD 02/16/2025 9:06 AM [facility] Hemoglobin 6.6(L) 11.5 - 16.0 g/dL LAB HEMETOLOGY METHOD 02/16/2025 9:06 AM [facility] Hematocrit 21.3(L) 35.0 - 47.0 % LAB HEMETOLOGY METHOD 02/16/2025 9:06 AM [facility] MCV 96.4 79.0 - 98.0 FL LAB HEMETOLOGY METHOD 02/16/2025 9:06 AM [facility] MCH 29.9 27.0 - 32.0 pcg LAB HEMETOLOGY METHOD 02/16/2025 9:06 AM [facility] MCHC 31.0(L) 32.0 - 37.0 g/dL LAB HEMETOLOGY METHOD 02/16/2025 9:06 AM [facility] RDW 15.3(H) 11.0 - 15.0 % LAB HEMETOLOGY METHOD 02/16/2025 9:06 AM [facility] Platelets 359 130 - 400 K/mcL LAB HEMETOLOGY METHOD 02/16/2025 9:06 AM [facility] MPV 9.1 7.0 - 11.0 FL LAB HEMETOLOGY METHOD 02/16/2025 9:06 AM [facility] NRBC 0.0 <1.0 % LAB HEMETOLOGY METHOD 02/16/2025 9:06 AM [facility] NRBC Absolute 0.00 <0.10 K/mcL LAB HEMETOLOGY METHOD 02/16/2025 9:06 AM [facility] Blood Venous blood specimen / Unknown Venipuncture / Unknown 02/16/2025 5:01 AM EDT 02/16/2025 8:35 AM EDT us Agueda Orozco MD LAB BLOOD ORDERABLES Final Resul t [facility] [address] [place] [address], [place] [phone] * (ABNORMAL) Basic metabolic panel (02/16/2025 5:01 AM EDT) Sodium 138 133 - 145 mmol/L LAB CHEMISTRY METHOD 02/16/2025 9:30 AM [facility] Potassium 4.3 3.5 - 5.5 mmol/L LAB CHEMISTRY METHOD 02/16/2025 9:30 AM [facility] Chloride 106 96 - 110 mmol/L LAB CHEMISTRY METHOD 02/16/2025 9:30 AM [facility] CO2 25 21 - 32 mmol/L LAB CHEMISTRY METHOD 02/16/2025 9:30 AM [facility] Anion Gap 7 3 - 11 LAB CHEMISTRY METHOD 02/16/2025 9:30 AM [facility] Glucose 89 70 - 100 mg/dL LAB CHEMISTRY METHOD 02/16/2025 9:30 AM [facility] BUN 31(H) 5 - 25 mg/dL LAB CHEMISTRY METHOD 02/16/2025 9:30 AM [facility] Creatinine 1.49(H) 0.50 - 1.10 mg/dL LAB CHEMISTRY METHOD 02/16/2025 9:30 AM [facility] eGFR 37(L) >=60 mL/min/1. 73m2 LAB CHEMISTRY METHOD 02/16/2025 9:30 AM EDT [facility] Comment:Calculation based on the Chronic Kidney Disease Epidemiology Collaboration (CKD-EPI) equation refit without adjustment for race. BUN/Creatinine Ratio 20.8 LAB CHEMISTRY METHOD 02/16/2025 9:30 AM EDT [facility] Calcium 8.1(L) 8.5 - 10.5 mg/dL LAB CHEMISTRY METHOD 02/16/2025 9:30 AM EDT [facility] Blood Venous blood specimen / Unknown Venipuncture / Unknown 02/16/2025 5:01 AM EDT 02/16/2025 8:35 AM EDT Agueda Orozco MD LAB BLOOD ORDERABLES Final Resul t [facility] [address] [place] [address], documented in this encounter Visit Diagnoses Diagnosis Type 2 diabetes mellitus without complications (CMS/HCC V24, CMS/HCC V28) documented in this encounter Care Teams Signal Technician Relationship Specialty Start Date End Date Agueda Orozco MD [address] [place] [address] [address] [place] [address] PCP - General Geriatric Medicine 02/06/25 documented as of this encounter
--- OUTSIDE RECORDS SUMMARY | 2025-05-14 12:47 | XMS_ITS | Encounter Summary ---
Author Organization [facility] Address [address] [place] [address] Care Team Providers Care Leadership Program Internship Name Role Phone Agueda Orozco MD Primary Care Provider [phone] Encounter Details Date Type Department Care Team (Late st Contact Info) Description 02/15/2025 Lab Requisition [facility] - Main Lab 299 [facility] [place] [address] Agueda Orozco MD [address] [place] [address] Essential (primary) hypertension Social History Tobacco Use Types Packs/Day Years [...] Associated Diagnosis Comments COMPLETE BLOOD COUNT Routine 02/15/2025 5:54 AM EDT Essential (primary) hypertension COMPREHENSIVE METABOLIC PANEL Routine 02/15/2025 5:54 AM EDT Essential (primary) hypertension documented in this encounter Results * (ABNORMAL) Comprehensive metabolic panel (02/15/2025 5:54 AM EDT) Sodium 136 133 - 145 mmol/L LAB CHEMISTRY METHOD 02/15/2025 11:[address] [facility] Potassium 4.1 3.5 - 5.5 mmol/L LAB CHEMISTRY METHOD 02/15/2025 11:[address] [facility] Chloride 104 96 - 110 mmol/L LAB CHEMISTRY METHOD 02/15/2025 11:[address] [facility] CO2 24 21 - 32 mmol/L LAB CHEMISTRY METHOD 02/15/2025 11:[address] [facility] Anion Gap 8 3 - 11 LAB CHEMISTRY METHOD 02/15/2025 11:[address] [facility] Glucose 70 70 - 100 mg/dL LAB CHEMISTRY METHOD 02/15/2025 11:[address] [facility] BUN 33(H) 5 - 25 mg/dL LAB CHEMISTRY METHOD 02/15/2025 11:[address] [facility] Creatinine 1.58(H) 0.50 - 1.10 mg/dL LAB CHEMISTRY METHOD 02/15/2025 11:[address] [facility] eGFR 34(L) >=60 mL/min/1. 73m2 LAB CHEMISTRY METHOD 02/15/2025 11:[address] [facility] Comment:Calculation based on the Chronic Kidney Disease Epidemiology Collaboration (CKD-EPI) equation refit without adjustment for race. BUN/Creatinine Ratio 20.9 LAB CHEMISTRY METHOD 02/15/2025 11:[address] [facility] Calcium 8.3(L) 8.5 - 10.5 mg/dL LAB CHEMISTRY METHOD 02/15/2025 11:[address] [facility] AST (SGOT) 62(H) 10 - 42 unit/L LAB CHEMISTRY METHOD 02/15/2025 11:[address] [facility] ALT (SGPT) 71(H) 10 - 60 unit/L LAB CHEMISTRY METHOD 02/15/2025 11:[address] [facility] Alkaline Phosphatase 85 42 - 121 unit/L LAB CHEMISTRY METHOD 02/15/2025 11:[address] [facility] Total Protein 5.7(L) 6.0 - 8.0 g/dL LAB CHEMISTRY METHOD 02/15/2025 11:[address] [facility] Albumin 2.5(L) 3.2 - 5.0 g/dL LAB CHEMISTRY METHOD 02/15/2025 11:[address] [facility] Total Bilirubin 0.4 0.0 - 1.4 mg/dL LAB CHEMISTRY METHOD 02/15/2025 11:[address] [facility] Blood Venous blood specimen / Unknown Venipuncture / Unknown 02/15/2025 5:54 AM EDT 02/15/2025 10:09 AM EDT us Agueda Orozco MD LAB BLOOD ORDERABLES Final Resul t [facility] [address] [place] [address], * (ABNORMAL) Complete blood count (02/15/2025 5:54 AM EDT) WBC 5.8 4.8 - 10.8 K/mcL LAB HEMETOLOGY METHOD 02/15/2025 10:[address] [facility] RBC 2.30(L) 3.80 - 4.80 M/[facility] LAB HEMETOLOGY METHOD 02/15/2025 10:[address] [facility] Hemoglobin 6.7(L) 11.5 - 16.0 g/dL LAB HEMETOLOGY METHOD 02/15/2025 10:[address] [facility] Hematocrit 22.0(L) 35.0 - 47.0 % LAB HEMETOLOGY METHOD 02/15/2025 10:[address] [facility] MCV 96.5 79.0 - 98.0 FL LAB HEMETOLOGY METHOD 02/15/2025 10:[address] [facility] MCH 29.4 27.0 - 32.0 pcg LAB HEMETOLOGY METHOD 02/15/2025 10:[address] [facility] MCHC 30.5(L) 32.0 - 37.0 g/dL LAB HEMETOLOGY METHOD 02/15/2025 10:[address] [facility] RDW 15.5(H) 11.0 - 15.0 % LAB HEMETOLOGY METHOD 02/15/2025 10:[address] [facility] Platelets 373 130 - 400 K/mcL LAB HEMETOLOGY METHOD 02/15/2025 10:[address] [facility] MPV 9.1 7.0 - 11.0 FL LAB HEMETOLOGY METHOD 02/15/2025 10:[address] [facility] NRBC 0.0 <1.0 % LAB HEMETOLOGY METHOD 02/15/2025 10:[address] [facility] NRBC Absolute 0.00 <0.10 K/mcL LAB HEMETOLOGY METHOD 02/15/2025 10:[address] [facility] Blood Venous blood specimen / Unknown Venipuncture / Unknown 02/15/2025 5:54 AM EDT 02/15/2025 10:09 AM EDT us Agueda Orozco MD LAB BLOOD ORDERABLES Final Resul t [facility] [address] [place] [address], documented in this encounter Visit Diagnoses Diagnosis Essential (primary) hypertension Unspecified essential hypertension documented in this encounter Care Teams Leadership Program Internship Relationship Specialty Start Date End Date Agueda Orozco MD [address] [place] [address] [address] [place] [address] PCP - General Geriatric Medicine 02/06/25 documented as of this encounter
--- OUTSIDE RECORDS SUMMARY | 2025-05-14 12:47 | XMS_ITS | Encounter Summary ---
Author Organization [facility] Address [address] [place] [address] Care Team Providers Care Immunology Teacher Name Role Phone Agueda Orozco MD Primary Care Provider [phone] Encounter Details Date Type Department Care Team (Late st Contact Info) Description 02/18/2025 Lab Requisition [facility] - Main Lab 299 [facility] [place] [address] Agueda Orozco MD [address] [place] [address] Anemia, unspecified Social History Tobacco Use Types Packs/Day [...] Procedure Name Priority Date/Time Associated Diagnosis Comments TYPE AND SCREEN Routine 02/18/2025 7:00 AM EDT Anemia, unspecified documented in this encounter Results * Type and screen (02/18/2025 7:00 AM EDT) ABO Group O 02/18/2025 12:08 PM EDT [facility] Rh Type Positive 02/18/2025 12:08 PM EDT [facility] Antibody Screen Negative 02/18/2025 12:08 PM EDT [facility] Blood Venous blood specimen / Unknown 02/18/2025 7:00 AM EDT 02/18/2025 9:02 AM EDT Agueda Orozco MD LAB BLOOD BANK TEST ORDERABLES F inal Result [facility] [address] [place] [address], documented in this encounter Visit Diagnoses Diagnosis Anemia, unspecified documented in this encounter Care Teams Immunology Teacher Relationship Specialty Start Date End Date Agueda Orozco MD [address] [place] [address] [address] [place] [address] PCP - General Geriatric Medicine 02/06/25 documented as of this encounter
--- OUTSIDE RECORDS SUMMARY | 2025-05-14 12:47 | XMS_ITS | Encounter Summary ---
Author Organization [facility] Address [id number] [place] [id number] Care Team Providers Care Sailboat Captain Name Role Phone Agueda Orozco MD Primary Care Provider [phone] Encounter Details Date Type Department Care Team (Late st Contact Info) Description 02/06/2025 Lab Requisition [facility] - Main Lab [address] [facility] [place] [address] Agueda Orozco MD [address] [place], [place] [id number] Type 2 diabetes mellitus without complications (CMS/HCC [...] (ABNORMAL) Vitamin B12 (02/06/2025 6:44 AM EDT) [facility] [address] Vitamin B-12 206(L) 250 - 900 pcg/mL LAB CHEMISTRY METHOD 02/06/2025 10:[address] [facility] Blood Venous blood specimen / Unknown Venipuncture / Unknown 02/06/2025 6:44 AM EDT 02/06/2025 8:36 AM EDT Agueda Orozco MD LAB BLOOD ORDERABLES Final Resul t Performing Organization Address [facility] Co de Phone Number [facility] [address] [place] [address], * (ABNORMAL) Folate (02/06/2025 6:44 AM EDT) Pathologist [facility] Folate >20.0(H) 2.8 - 17.0 ng/ml LAB CHEMISTRY METHOD 02/06/2025 10:01 AM EDT [facility] Blood Venous blood specimen / Unknown Venipuncture / Unknown 02/06/2025 6:44 AM EDT 02/06/2025 8:36 AM EDT us Agueda Orozco MD LAB BLOOD ORDERABLES Final Resul t Performing Organization Address [facility] de Phone Number [facility] [address] [place] [address], * Thyroid stimulating hormone (02/06/2025 6:44 AM EDT) [facility] [address] TSH 3.26 0.40 - 4.00 mcIU/mL LAB CHEMISTRY METHOD 02/06/2025 10:27 AM EDT [facility] Blood Venous blood specimen / Unknown Venipuncture / Unknown 02/06/2025 6:44 AM EDT 02/06/2025 8:36 AM EDT us Agueda Orozco MD LAB BLOOD ORDERABLES Final Resul t Performing Organization Address [facility] de Phone Number [facility] [address] [place] [address], [place] [phone] * (ABNORMAL) Basic metabolic panel (02/06/2025 6:44 AM EDT) Pathologist [facility] Sodium 138 133 - 145 mmol/L LAB CHEMISTRY METHOD 02/06/2025 9:37 AM EDT [facility] Potassium 4.0 3.5 - 5.5 mmol/L LAB CHEMISTRY METHOD 02/06/2025 9:37 AM [facility] Chloride 105 96 - 110 mmol/L LAB CHEMISTRY METHOD 02/06/2025 9:37 AM [facility] CO2 25 21 - 32 mmol/L LAB CHEMISTRY METHOD 02/06/2025 9:37 AM [facility] Anion Gap 8 3 - 11 LAB CHEMISTRY METHOD 02/06/2025 9:37 AM [facility] Glucose 159(H) 70 - 100 mg/dL LAB CHEMISTRY METHOD 02/06/2025 9:37 AM [facility] BUN 27(H) 5 - 25 mg/dL LAB CHEMISTRY METHOD 02/06/2025 9:37 AM [facility] Creatinine 1.67(H) 0.50 - 1.10 mg/dL LAB CHEMISTRY METHOD 02/06/2025 9:37 AM [facility] eGFR 32(L) >=60 mL/min/1. 73m2 LAB CHEMISTRY METHOD 02/06/2025 9:37 AM [facility] Comment:Calculation based on the Chronic Kidney Disease Epidemiology Collaboration (CKD-EPI) equation refit without adjustment for race. BUN/Creatinine Ratio 16.2 LAB CHEMISTRY METHOD 02/06/2025 9:37 AM [facility] Calcium 8.0(L) 8.5 - 10.5 mg/dL LAB CHEMISTRY METHOD 02/06/2025 9:37 AM [facility] Blood Venous blood specimen / Unknown Venipuncture / Unknown 02/06/2025 6:44 AM EDT 02/06/2025 8:36 AM EDT us Agueda Orozco MD LAB BLOOD ORDERABLES Final Resul t [facility] [address] [place] [address], * (ABNORMAL) Complete blood count (02/06/2025 6:44 AM EDT) [facility] [address] WBC 6.8 4.8 - 10.8 K/mcL LAB HEMETOLOGY METHOD 02/06/2025 9:05 AM [facility] RBC 2.30(L) 3.80 - 4.80 M/mcL LAB HEMETOLOGY METHOD 02/06/2025 9:05 AM [facility] Hemoglobin 7.3(L) 11.5 - 16.0 g/dL LAB HEMETOLOGY METHOD 02/06/2025 9:05 AM [facility] Hematocrit 22.2(L) 35.0 - 47.0 % LAB HEMETOLOGY METHOD 02/06/2025 9:05 AM [facility] MCV 96.5 79.0 - 98.0 FL LAB HEMETOLOGY METHOD 02/06/2025 9:05 AM [facility] MCH 31.7 27.0 - 32.0 pcg LAB HEMETOLOGY METHOD 02/06/2025 9:05 AM [facility] MCHC 32.9 32.0 - 37.0 g/dL LAB HEMETOLOGY METHOD 02/06/2025 9:05 AM [facility] RDW 15.6(H) 11.0 - 15.0 % LAB HEMETOLOGY METHOD 02/06/2025 9:05 AM [facility] Platelets 226 130 - 400 K/mcL LAB HEMETOLOGY METHOD 02/06/2025 9:05 AM [facility] MPV 9.5 7.0 - 11.0 FL LAB HEMETOLOGY METHOD 02/06/2025 9:05 AM [facility] NRBC 0.0 <1.0 % LAB HEMETOLOGY METHOD 02/06/2025 9:05 AM EDT [facility] NRBC Absolute 0.00 <0.10 K/mcL LAB HEMETOLOGY METHOD 02/06/2025 9:05 AM EDT [facility] Blood Venous blood specimen / Unknown Venipuncture / Unknown 02/06/2025 6:44 AM EDT 02/06/2025 8:36 AM EDT us Agueda Orozco MD LAB BLOOD ORDERABLES Final Resul t [facility] [address] [place] [address], documented in this encounter Visit Diagnoses Diagnosis Type 2 diabetes mellitus without complications (CMS/HCC V24, CMS/HCC V28) Rheumatoid arthritis, unspecified (CMS/HCC V24, CMS/[facility] V28) Chronic kidney disease, unspecified Essential (primary) hypertension Unspecified essential hypertension Hypothyroidism, unspecified Hyperlipidemia, unspecified documented in this encounter Care Teams Sailboat Captain Relationship Specialty Start Date End Date Agueda Orozco MD [address] [place] [address] [address] [place] [address] PCP - General Geriatric Medicine 02/06/25 documented as of this encounter
--- OUTSIDE RECORDS SUMMARY | 2025-05-14 12:47 | XMS_ITS | Encounter Summary ---
Author Organization [facility] Address [address] [place] [address] Care Team Providers Care Contract Administration Specialist Name Role Phone Agueda Orozco MD Primary Care Provider [phone] Encounter Details Date Type Department Care Team (Late st Contact Info) Description 02/12/2025 Lab Requisition [facility] - Main Lab [address] [facility] [place] [id number] Agueda Orozco MD [address] [place] [address] Essential (primary) hypertension; Anemia, unspecified; Hyperlipidemia, unspecified Social History Tobacco Use [...] Procedure Name Priority Date/Time Associated Diagnosis Comments IRON AND TIBC Routine 02/12/2025 5:42 AM EDT Essential (primary) hypertension Anemia, unspecified Hyperlipidemia, unspecified COMPLETE BLOOD COUNT Routine 02/12/2025 5:42 AM EDT Essential (primary) hypertension Anemia, unspecified Hyperlipidemia, unspecified FERRITIN Routine 02/12/2025 5:42 AM EDT Essential (primary) hypertension Anemia, unspecified Hyperlipidemia, unspecified BASIC METABOLIC PANEL Routine 02/12/2025 5:42 AM EDT Essential (primary) hypertension Anemia, unspecified Hyperlipidemia, unspecified documented in this encounter Results * (ABNORMAL) Ferritin (02/12/2025 5:42 AM EDT) Ferritin 334(H) 8 - 252 ng/mL LAB CHEMISTRY METHOD 02/12/2025 2:52 PM EDT [facility] Blood Venous blood specimen / Unknown Venipuncture / Unknown 02/12/2025 5:42 AM EDT 02/12/2025 10:20 AM EDT us Agueda Orozco MD LAB BLOOD ORDERABLES Final Resul t Performing Organization Address [facility] [[email or web address]] de Phone Number [facility] [address] [place] [address], [place] [phone] * (ABNORMAL) Iron and TIBC (02/12/2025 5:42 AM EDT) Iron 25(L) 40 - 150 mcg/dL LAB CHEMISTRY METHOD 02/12/2025 12:20 PM EDT [facility] TIBC 231(L) 250 - 450 mcg/dL LAB CHEMISTRY METHOD 02/12/2025 12:20 PM EDT [facility] Iron Saturation 11(L) 15 - 50 % LAB CHEMISTRY METHOD 02/12/2025 12:20 PM EDT [facility] Blood Venous blood specimen / Unknown Venipuncture / Unknown 02/12/2025 5:42 AM EDT 02/12/2025 10:20 AM EDT us Agueda Orozco MD LAB BLOOD ORDERABLES Final Resul t Performing Organization Address [facility]/ZIP Nm de Phone Number [facility] [address] [place] [address], [place] [phone] * (ABNORMAL) Basic metabolic panel (02/12/2025 5:42 AM EDT) Sodium 136 133 - 145 mmol/L LAB CHEMISTRY METHOD 02/12/2025 12:20 PM [facility] Potassium 3.7 3.5 - 5.5 mmol/L LAB CHEMISTRY METHOD 02/12/2025 12:20 PM [facility] Chloride 102 96 - 110 mmol/L LAB CHEMISTRY METHOD 02/12/2025 12:20 PM [facility] CO2 23 21 - 32 mmol/L LAB CHEMISTRY METHOD 02/12/2025 12:20 PM [facility] Anion Gap 11 3 - 11 LAB CHEMISTRY METHOD 02/12/2025 12:20 PM [facility] Glucose 57(L) 70 - 100 mg/dL LAB CHEMISTRY METHOD 02/12/2025 12:20 PM [facility] BUN 34(H) 5 - 25 mg/dL LAB CHEMISTRY METHOD 02/12/2025 12:20 PM [facility] Creatinine 1.71(H) 0.50 - 1.10 mg/dL LAB CHEMISTRY METHOD 02/12/2025 12:20 PM [facility] eGFR 31(L) >=60 mL/min/1. 73m2 LAB CHEMISTRY METHOD 02/12/2025 12:20 PM [facility] Comment:Calculation based on the Chronic Kidney Disease Epidemiology Collaboration (CKD-EPI) equation refit without adjustment for race. BUN/Creatinine Ratio 19.9 LAB CHEMISTRY METHOD 02/12/2025 12:20 PM [facility] Calcium 7.8(L) 8.5 - 10.5 mg/dL LAB CHEMISTRY METHOD 02/12/2025 12:20 PM [facility] Blood Venous blood specimen / Unknown Venipuncture / Unknown 02/12/2025 5:42 AM EDT 02/12/2025 10:20 AM EDT us Agueda Orozco MD LAB BLOOD ORDERABLES Final Resul t [facility] [address] [place] [address], [place] [phone] * (ABNORMAL) Complete blood count (02/12/2025 5:42 AM EDT) WBC 5.3 4.8 - 10.8 K/mcL LAB HEMETOLOGY METHOD 02/12/2025 12:17 PM EDT [facility] RBC 2.10(L) 3.80 - 4.80 M/mcL LAB HEMETOLOGY METHOD [facility] Hemoglobin 6.6(L) 11.5 - 16.0 g/dL LAB HEMETOLOGY METHOD 02/12/2025 12:17 PM T [facility] Hematocrit 20.8(L) 35.0 - 47.0 % LAB HEMETOLOGY METHOD 02/12/2025 12:17 PM EDT [facility] MCV 97.7 79.0 - 98.0 FL LAB HEMETOLOGY METHOD 02/12/2025 12:17 PM [facility] MCH 31.0 27.0 - 32.0 pcg LAB HEMETOLOGY METHOD 02/12/2025 12:17 PM EDT [facility] MCHC 31.7(L) 32.0 - 37.0 g/dL LAB HEMETOLOGY METHOD 02/12/2025 12:17 PM [facility] RDW 15.8(H) 11.0 - 15.0 % LAB HEMETOLOGY METHOD 02/12/2025 12:17 PM [facility] Platelets 335 130 - 400 K/mcL LAB HEMETOLOGY METHOD 02/12/2025 12:17 PM EDT [facility] MPV 9.3 7.0 - 11.0 FL LAB HEMETOLOGY METHOD 02/12/2025 12:17 PM EDT [facility] NRBC 0.0 <1.0 % LAB HEMETOLOGY METHOD 02/12/2025 12:17 PM EDT [facility] NRBC Absolute 0.00 <0.10 K/mcL LAB HEMETOLOGY METHOD 02/12/2025 12:17 PM EDT [facility] Blood Venous blood specimen / Unknown Venipuncture / Unknown 02/12/2025 5:42 AM EDT 02/12/2025 10:20 AM EDT Agueda Orozco MD LAB BLOOD ORDERABLES Final Resul t [facility] [address] [place] [address], documented in this encounter Visit Diagnoses Diagnosis Essential (primary) hypertension Unspecified essential hypertension Anemia, unspecified Hyperlipidemia, unspecified documented in this encounter Care Teams Contract Administration Specialist Relationship Specialty Start Date End Date Aguead Orozco MD [address] [place] [address] [address] [place] [address] PCP - General Geriatric Medicine 02/06/25 documented as of this encounter
--- OUTSIDE RECORDS SUMMARY | 2025-05-14 12:48 | XMS_ITS | Clinical Summary ---
Author Organization [facility] Address [address] [place] [phone] Phone Care Team Providers Care Paper Cone Grader Name Role Phone Agueda Orozco MD Primary Care Provider [phone] Allergies Active Allergy Reactions Criticality Noted Date Comments Iodinated Contrast Media Chills 07/22/2017 Rigors/Shaking Pollen Extracts Low 07/27/2017 Seasonal allergies Medications hydroCHLOROthia zide (HYDRODIURIL) 25 mg tablet Take 1 tablet (25 mg total) by mouth 1 (one) time each day. 5 Active glipiZIDE (GLUCOTROL XL) 10 mg 24 hr tablet Take 1 tablet (10 mg total) by mouth 1 (one) time each day. 5 Active folic acid (FOLVITE) 1 mg tablet Take 1 tablet (1,000 mcg total) by mouth 1 (one) time each day. 5 Active acetaminophen (TYLENOL) 325 mg tablet Take 2 tablets (650 mg total) by mouth every 6 hours as needed. 7 Active losartan (COZAAR) 100 mg tablet Take 1 tablet (100 mg total) by mouth 1 (one) time each day. Active metFORMIN (GLUCOPHAGE) 1,000 mg tablet Take 1 tablet (1,000 mg total) by mouth 2 (two) times a day. Active methotrexate 2.5 mg tablet Take 1 tablet (2.5 mg total) by mouth 1 (one) time per week 5 Active pioglitazone (ACTOS) 45 mg tablet Take 1 tablet (45 mg total) by mouth 1 (one) time each day. 5 Active pravastatin (PRAVACHOL) 80 mg tablet Take 1 tablet (80 mg total) by mouth 1 (one) time each day. Active pantoprazole (PROTONIX) 40 mg EC tablet Take 1 tablet (40 mg total) by mouth 1 (one) time each day before breakfast. Do not crush, chew, or split. Active nystatin (MYCOSTATIN) 100,000 unit/gram powder Apply topically 2 (two) times a day. Active magnesium hydroxide (MILK OF MAGNESIA) 400 mg/5 mL suspension Take by mouth 1 (one) time each day if needed for constipation. Active cyanocobalamin, vitamin B-12, 1,000 mcg/mL kit Inject as directed every 30 (thirty) days. Active Active Problems Problem Noted Date Diagnosed Date Anemia 02/19/2025 Encounters Date Type Department Care Team Description 03/01/2025 Lab Requisition [facility] Lab [address] [place] [phone] Agueda Orozco MD Type 2 diabetes mellitus without complications ([facility] V24, [facility] V28) 02/21/2025 Lab Requisition [facility] [address] [place] [phone] Agueda Orozco MD Type 2 diabetes mellitus without complications ([facility] V24, [facility] V28) 02/21/2025 Lab Requisition [facility] [address] [place] [phone] Agueda Orozco MD Anemia, unspecified 02/19/2025 9:52 AM EDT - 02/19/2025 11:59 PM EDT Hospital Encounter [facility] [address] [facility] 2nd [place] [phone] Anemia, unspecified type (Primary Dx) Discharge Disposition: Home or Self Care 02/18/2025 Lab Requisition [facility] [address] [place] [phone] Agueda Orozco MD Anemia, unspecified 02/15/2025 Lab Requisition [facility] [address] [place] [address] Agueda Orozco MD Type 2 diabetes mellitus without complications (CMS/HCC V24, CMS/HCC V28) 02/15/2025 Lab Requisition [facility] [address] [place] [address] Agueda Orozco MD Essential (primary) hypertension 02/12/2025 Lab Requisition [facility] [address] [place] [address] Agueda Orozco MD Essential (primary) hypertension; Anemia, unspecified; Hyperlipidemia, unspecified from Last 3 Months Social History Tobacco Use Types Packs/Day Years Used Date Smoking Tobacco: Never Assessed Comments Unknown Sex and Gender Information Value Date Recorded Sex Assigned at Female 02/19/2025 9:48 AM EDT Legal Sex Female 8:29 AM EDT Gender Identity Female 02/19/2025 9:48 AM EDT Sexual Orientation Straight 02/19/2025 9 :48 AM EDT Last Filed Vital Signs Vital Sign Reading Time Taken Comments Blood Pressure 109/50 02/19/2025 2:29 PM EDT Pulse 84 02/19/2025 2:29 PM EDT Temperature 36.9 C (98.4 F) 02/19/2025 2:29 PM EDT Respiratory Rate 18 02/19/2025 2:29 PM EDT Oxygen Saturation 100% 02/19/2025 2:29 PM EDT Inhaled Oxygen Concentration - - Weight - - Height - - Body Mass Index - - Plan of Treatment Health Maintenance Due Date Last Done Comments Breast Cancer Screening 1950 Diabetes: Annual Foot Exam 1960 Diabetes: Annual Retina Eye Exam 1960 Depression Screening 08/23/2024 Cholesterol Screening (Lipid Panel) 02/06/2025 Colorectal Cancer Screening: Colonoscopy 02/06/2025 Diabetes: Annual Urine Albumin-Creatinine Ratio (uACR) 02/06/2025 Diabetes: Blood Sugar Control Test (HGBA1C) 02/06/2025 Hepatitis C Screening 02/06/2025 Osteoporosis Screening (Bone Density Screening) 02/06/2025 Social Influencers of Health Screening 02/06/2025 COVID-19 Vaccine (4 - Mixed Product risk season) 2025 05/26/2024, 12/31/2020, 12/10/2020 Influenza Vaccine (#1) 2025 , 06/05/2023, 06/08/2022, Additional history exists Falls Risk Assessment 02/19/2026 02/19/2025 Diabetes: Annual GFR (Glomerular Filtration Rate) 02/22/2026 02/22/2025, 02/21/2025, 02/16/2025, Additional history exists Hypertension/CHF/CAD Annual BMP Blood Test 02/22/2026 02/22/2025, 02/21/2025, 02/16/2025, Additional history exists DTaP,Tdap,and Td Vaccines (3 - Td or Tdap) 05/26/2034 05/26/2024, 12/02/2021 Zoster Vaccines Completed 11/12/2020, 05/23/2020 Pneumococcal Vaccine: 50+ Years Completed 12/23/2022, 05/26/2021 RSV Immunization Adult Patients Completed 06/05/2023 HIB Vaccines Aged Out No longer eligi ble based on patient's age to complete this topic HPV Vaccines Aged Out No longer eligi ble based on patient's age to complete this topic Hepatitis A Vaccines Aged Out No long er eligible based on patient's age to complete this topic Hepatitis B Vaccines Aged Out No long er eligible based on patient's age to complete this topic IPV Vaccines Aged Out No longer eligi ble based on patient's age to complete this topic MMR Vaccines Aged Out No longer eligi ble based on patient's age to complete this topic Meningococcal ACWY Vaccine Aged Out N o longer eligible based on patient's age to complete this topic Meningococcal B Vaccine Aged Out No l onger eligible based on patient's age to complete this topic RSV Immunization Patients Under 20 months Aged Out No longer eligible based on patient's age to complete this topic Varicella Vaccines Aged Out No longer eligible based on patient's age to complete this topic Procedures Procedure Name Priority Date/Time Associated Diagnosis Comments COMPLETE BLOOD COUNT Routine 02/22/2025 5:25 AM EDT Type 2 diabetes mellitus without complications ([facility] V24, [facility] V28) BASIC METABOLIC PANEL Routine 02/22/2025 5:25 AM EDT Type 2 diabetes mellitus without complications (CMS/HCC V24, CMS/HCC V28) COMPLETE BLOOD COUNT Routine 02/21/2025 6:12 AM EDT Anemia, unspecified COMPREHENSIVE METABOLIC PANEL Routine 02/21/2025 6:12 AM EDT Anemia, unspecified TRANSFUSE RED BLOOD CELLS Routine 02/19/2025 10:54 AM EDT Anemia, unspecified type PREPARE RBC Routine 02/19/2025 10:11 AM EDT Anemia, unspecified type TYPE AND SCREEN Routine 02/18/2025 7:00 AM EDT Anemia, unspecified COMPLETE BLOOD COUNT Routine 02/16/2025 5:01 AM EDT Type 2 diabetes mellitus without complications (CMS/HCC V24, CMS/HCC V28) BASIC METABOLIC PANEL Routine 02/16/2025 5:01 AM EDT Type 2 diabetes mellitus without complications (CMS/HCC V24, CMS/HCC V28) COMPREHENSIVE METABOLIC PANEL Routine 02/15/2025 5:54 AM EDT Essential (primary) hypertension COMPLETE BLOOD COUNT Routine 02/15/2025 5:54 AM EDT Essential (primary) hypertension FERRITIN Routine 02/12/2025 5:42 AM EDT Essential (primary) hypertension Anemia, unspecified Hyperlipidemia, unspecified IRON AND TIBC Routine 02/12/2025 5:42 AM EDT Essential (primary) hypertension Anemia, unspecified Hyperlipidemia, unspecified BASIC METABOLIC PANEL Routine 02/12/2025 5:42 AM EDT Essential (primary) hypertension Anemia, unspecified Hyperlipidemia, unspecified COMPLETE BLOOD COUNT Routine 02/12/2025 5:42 AM EDT Essential (primary) hypertension Anemia, unspecified Hyperlipidemia, unspecified from Last 3 Months Results * (ABNORMAL) Complete blood count (02/22/2025 5:25 AM EDT) Only the most recent of5 resultswithin the time period is included. [facility] WBC 4.8 4.8 - 10.8 K/mcL LAB HEMETOLOGY METHOD 02/22/2025 9:46 AM [facility] RBC 2.70(L) 3.80 - 4.80 M/mcL LAB HEMETOLOGY METHOD 02/22/2025 9:46 AM [facility] Hemoglobin 8.2(L) 11.5 - 16.0 g/dL LAB HEMETOLOGY METHOD 02/22/2025 9:46 AM [facility] Hematocrit 25.6(L) 35.0 - 47.0 % LAB HEMETOLOGY METHOD 02/22/2025 9:46 AM [facility] MCV 94.5 79.0 - 98.0 FL LAB HEMETOLOGY METHOD 02/22/2025 9:46 AM [facility] MCH 30.3 27.0 - 32.0 pcg LAB HEMETOLOGY METHOD 02/22/2025 9:46 AM [facility] MCHC 32.0 32.0 - 37.0 g/dL LAB HEMETOLOGY METHOD 02/22/2025 9:46 AM [facility] RDW 15.2(H) 11.0 - 15.0 % LAB HEMETOLOGY METHOD 02/22/2025 9:46 AM [facility] Platelets 339 130 - 400 K/mcL LAB HEMETOLOGY METHOD 02/22/2025 9:46 AM [facility] MPV 9.1 7.0 - 11.0 FL LAB HEMETOLOGY METHOD 02/22/2025 9:46 AM [facility] NRBC 0.0 <1.0 % LAB HEMETOLOGY METHOD 02/22/2025 9:46 AM T [facility] NRBC Absolute 0.00 <0.10 K/mcL LAB HEMETOLOGY METHOD 02/22/2025 9:46 AM [facility] Blood Venous blood specimen / Unknown Venipuncture / Unknown 02/22/2025 5:25 AM EDT 02/22/2025 9:08 AM EDT us Agueda Orozco MD LAB BLOOD ORDERABLES Final Resul t [facility] [address] [place] [address], [place] [phone] * (ABNORMAL) Basic metabolic panel (02/22/2025 5:25 AM EDT) Only the most recent of3 resultswithin the time period is included. Sodium 138 133 - 145 mmol/L LAB CHEMISTRY METHOD 02/22/2025 10:20 AM [facility] Potassium 4.0 3.5 - 5.5 mmol/L LAB CHEMISTRY METHOD 02/22/2025 10:20 AM [facility] Chloride 106 96 - 110 mmol/L LAB CHEMISTRY METHOD 02/22/2025 10:20 AM [facility] CO2 23 21 - 32 mmol/L LAB CHEMISTRY METHOD 02/22/2025 10:20 AM [facility] Anion Gap 9 3 - 11 LAB CHEMISTRY METHOD 02/22/2025 10:20 AM [facility] Glucose 57(L) 70 - 100 mg/dL LAB CHEMISTRY METHOD 02/22/2025 10:20 AM [facility] BUN 30(H) 5 - 25 mg/dL LAB CHEMISTRY METHOD 02/22/2025 10:20 AM [facility] Creatinine 1.38(H) 0.50 - 1.10 mg/dL LAB CHEMISTRY METHOD 02/22/2025 10:20 AM EDT [facility] eGFR 40(L) >=60 mL/min/1. 73m2 LAB CHEMISTRY METHOD 02/22/2025 10:20 AM T [facility] Comment:Calculation based on the Chronic Kidney Disease Epidemiology Collaboration (CKD-EPI) equation refit without adjustment for race. BUN/Creatinine Ratio 21.7 LAB CHEMISTRY METHOD 02/22/2025 10:20 AM EDT [facility] Calcium 8.6 8.5 - 10.5 mg/dL LAB CHEMISTRY METHOD 02/22/2025 10:20 AM [facility] Blood Venous blood specimen / Unknown Venipuncture / Unknown 02/22/2025 5:25 AM EDT 02/22/2025 9:08 AM EDT us Agueda Orozco MD LAB BLOOD ORDERABLES Final Resul t [facility] [address] [place] [address], [place] [phone] * (ABNORMAL) Comprehensive metabolic panel (02/21/2025 6:12 AM EDT) Only the most recent of2 resultswithin the time period is included. Sodium 138 133 - 145 mmol/L LAB CHEMISTRY METHOD 02/21/2025 9:39 AM EDT [facility] Potassium 4.2 3.5 - 5.5 mmol/L LAB CHEMISTRY METHOD 02/21/2025 9:39 AM T [facility] Chloride 106 96 - 110 mmol/L LAB CHEMISTRY METHOD 02/21/2025 9:39 AM [facility] CO2 26 21 - 32 mmol/L LAB CHEMISTRY METHOD 02/21/2025 9:39 AM EDT [facility] Anion Gap 6 3 - 11 LAB CHEMISTRY METHOD 02/21/2025 9:39 AM [facility] Glucose 73 70 - 100 mg/dL LAB CHEMISTRY METHOD 02/21/2025 9:39 AM [facility] BUN 31(H) 5 - 25 mg/dL LAB CHEMISTRY METHOD 02/21/2025 9:39 AM [facility] Creatinine 1.43(H) 0.50 - 1.10 mg/dL LAB CHEMISTRY METHOD 02/21/2025 9:39 AM [facility] eGFR 39(L) >=60 mL/min/1. 73m2 LAB CHEMISTRY METHOD 02/21/2025 9:39 AM [facility] Comment:Calculation based on the Chronic Kidney Disease Epidemiology Collaboration (CKD-EPI) equation refit without adjustment for race. BUN/Creatinine Ratio 21.7 LAB CHEMISTRY METHOD 02/21/2025 9:39 AM [facility] Calcium 8.9 8.5 - 10.5 mg/dL LAB CHEMISTRY METHOD 02/21/2025 9:39 AM [facility] AST (SGOT) 111(H) 10 - 42 unit/L LAB CHEMISTRY METHOD 02/21/2025 9:39 AM [facility] ALT (SGPT) 86(H) 10 - 60 unit/L LAB CHEMISTRY METHOD 02/21/2025 9:39 AM [facility] Alkaline Phosphatase 113 42 - 121 unit/L LAB CHEMISTRY METHOD 02/21/2025 9:39 AM [facility] Total Protein 5.9(L) 6.0 - 8.0 g/dL LAB CHEMISTRY METHOD 02/21/2025 9:39 AM [facility] Albumin 2.8(L) 3.2 - 5.0 g/dL LAB CHEMISTRY METHOD 02/21/2025 9:39 AM [facility] Total Bilirubin 0.3 0.0 - 1.4 mg/dL LAB CHEMISTRY METHOD 02/21/2025 9:39 AM EDT [facility] Blood Venous blood specimen / Unknown Venipuncture / Unknown 02/21/2025 6:12 AM EDT 02/21/2025 8:27 AM EDT us Agueda Orozco MD LAB BLOOD ORDERABLES Final Resul t Performing Organization Address City/[facility]/ZIP Co de Phone Number [facility] [address] [place] [address], [place] [phone] * Transfuse RBC (02/19/2025 2:29 PM EDT) us Agueda Orozco MD BLOOD TRANSFUSION ORDERABLES Fin al Result * Prepare RBC: 1 Units (02/19/2025 10:11 AM EDT) Product Code [id number] 02/19/2025 10:55 AM EDT [facility] Unit Number [id number] 02/20/20 10:55 AM EDT [facility] Crossmatch Compatible 02/19/2025 10:19 AM EDT [facility] Dispense Status Transfused 02/19/2025 10:55 AM EDT [facility] Unit ABO Rh OPOS 02/19/2025 10:55 AM EDT [facility] Unit Expiration Date Time [id number] 02/19/2025 10:55 AM EDT [facility] Unit Blood Type 5100 02/19/2025 10:55 AM EDT [facility] Blood Venous blood specimen / Unknown 02/19/2025 10:11 AM EDT 02/18/2025 9:02 AM EDT us Agueda Orozco MD BLOOD BANK PRODUCT ORDERABLES Fi nal Result Performing Organization Address City/[facility]/ZIP Co de Phone Number [facility] [address] [place] [address], [place] [phone] * Type and screen (02/18/2025 7:00 AM EDT) ABO Group O 02/18/2025 12:08 PM EDT [facility] Rh Type Positive 02/18/2025 12:08 PM EDT [facility] Antibody Screen Negative 02/18/2025 12:08 PM EDT [facility] Blood Venous blood specimen / Unknown 02/18/2025 7:00 AM EDT 02/18/2025 9:02 AM EDT us Agueda Orozco MD LAB BLOOD BANK TEST ORDERABLES F inal Result Performing Organization Address City/[facility]/ZIP Co de Phone Number [facility] [address] [place] [address], [place] [phone] * (ABNORMAL) Iron and TIBC (02/12/2025 5:42 AM EDT) Iron 25(L) 40 - 150 mcg/dL LAB CHEMISTRY METHOD 02/12/2025 12:20 PM EDT [facility] TIBC 231(L) 250 - 450 mcg/dL LAB CHEMISTRY METHOD 02/12/2025 12:20 PM EDT [facility] Iron Saturation 11(L) 15 - 50 % LAB CHEMISTRY METHOD 02/12/2025 12:20 PM EDT [facility] Blood Venous blood specimen / Unknown Venipuncture / Unknown 02/12/2025 5:42 AM EDT 02/12/2025 10:20 AM EDT us Agueda Orozco MD LAB BLOOD ORDERABLES Final Resul t [facility] [address] [place] [address], [place] [phone] * (ABNORMAL) Ferritin (02/12/2025 5:42 AM EDT) Ferritin 334(H) 8 - 252 ng/mL LAB CHEMISTRY METHOD 02/12/2025 2:52 PM EDT [facility] Blood Venous blood specimen / Unknown Venipuncture / Unknown 02/12/2025 5:42 AM EDT 02/12/2025 10:20 AM EDT Agueda Orozco MD LAB BLOOD ORDERABLES Final Resul t [facility] [address] [place] [address], [place] [phone] from Last 3 Months Insurance [facility] Care Teams Paper Cone Grader Relationship Specialty Start Date End Date Agueda Orozco MD [address] [facility] [address] [place] [address] PCP - General Geriatric Medicine 02/06/25
--- OUTSIDE RECORDS SUMMARY | 2025-05-14 12:48 | XMS_ITS | Encounter Summary ---
Author Organization [facility] Address [address] [place] [phone] Phone Care Team Providers Care Skills Instructor Name Role Phone Rohith Sutton MD Primary Care Provider [phone] Encounter Details Date Type Department Care Team (Late st Contact Info) Description 07/27/2017 Procedure Pass OR Admitting Dept - Virtual Department [address] [place] [address] Social History Tobacco Use Types Packs/Day Years [...] on filedocumented in this encounter Care Teams Skills Instructor Relationship Specialty Start Date End Date Rohith Sutton MD [address] [place] [phone] PCP - General 06/10/17 documented as of this encounter Additional Source Comments The information contained in this document represents components of the legal health record. It is not the complete legal health record.[facility]
--- OUTSIDE RECORDS SUMMARY | 2025-05-14 12:48 | XMS_ITS | Encounter Summary ---
Author Organization [facility] Address [address] [place] [address] Phone Care Team Providers Care Reeling Machine Setup Operator Name Role Phone Rohith Sutton MD Primary Care Provider [phone] Encounter Details Date Type Department Care Team (Late st Contact Info) Description 08/09/2017 Ancillary Orders [address] [address] Jazmyn Hernandez PA-C [address] [place] [address] Orthopedics & Sports Medicine, [place] [address] [email or web address] Right knee pain, unspecified chronicity Social History Tobacco Use Types Packs/Day Years [...] on file documented as of this encounter Results * XR KNEE 3 VIEW (RIGHT) (08/11/2017 11:37 AM EST) Narrative Chanda Arzate - 08/11/2017 11:37 AM EST This image report has been auto-finalized and has not been read by a Radiologist. Interpretation has been included in the provider encounter note for this date of service. Jazmyn Hernandez PA-C IMG XR LOWER EXTREMITY F inal Result documented in this encounter Visit Diagnoses Diagnosis Right knee pain, unspecified chronicity Right knee pain, unspecified chronicity documented in this encounter Care Teams Reeling Machine Setup Operator Relationship Specialty Start Date End Date Rohith Sutton MD [address] [place] [phone] PCP - General 06/10/17 documented as of this encounter Additional Source Comments The information contained in this document represents components of the legal health record. It is not the complete legal health record.[facility]
--- OUTSIDE RECORDS SUMMARY | 2025-05-14 12:48 | XMS_ITS | Encounter Summary ---
Author Organization [facility] Address [address] [place] [address] Care Team Providers Care Paper Wood Cutter Name Role Phone Agueda Orozco MD Primary Care Provider [phone] Encounter Details Date Type Department Care Team (Late st Contact Info) Description 03/01/2025 Lab Requisition [facility] [address] [facility] [place] [address] Agueda Orozco MD [address] [place], [place] [id number] Type 2 diabetes mellitus without complications (CMS/HCC [...] V28) documented in this encounter Care Teams Paper Wood Cutter Relationship Specialty Start Date End Date gAueda Orozco MD [address] [place], [place] [phone] PCP - General Geriatric Medicine 02/06/25 documented as of this encounter
--- OUTSIDE RECORDS SUMMARY | 2025-05-14 12:48 | XMS_ITS | Clinical Summary ---
Author Organization [facility] Address [address] [place] [address] Phone Care Team Providers Care External Relations Director Name Role Phone Rohith Sutton MD Primary Care Provider [phone] Allergies Active Allergy Reactions Criticality Noted Date Comments Iodinated Contrast Media 07/22/2017 Pollen Extracts Low 07/27/2017 Seasonal allergies Medications glipiZIDE (GLUCOTROL) 5 MG 24 hr tablet 1 tablet Acti ve losartan (COZAAR) 100 MG tablet 1 tablet Active metFORMIN (GLUCOPHAGE) 1000 MG tablet Take 1,000 mg by mouth. 3 06/12/2017 Active pravastatin (PRAVACHOL) 80 MG tablet Take 80 mg by mouth daily. 3 06/12/2017 Active ipratropium (ATROVENT) 0.03 % nasal spray 2 sprays by Nasal route every 8 (eight) hours as needed. Active acetaminophen (TYLENOL) 325 mg tablet Take 2 tablets (650 mg total) by mouth every 6 (six) hours as needed for mild pain or fever. 0 07/30/2017 Active aspirin 81 MG EC tablet Take 81 mg by mouth daily. Active Active Problems No known active problems Resolved Problems Problem Noted Date Diagnosed Date Resolved Date Primary osteoarthritis of right knee 07/30/2017 Family History Relation Status Comments Father Alive Mother Social History Tobacco Use Types Packs/Day Years Used Date Smoking Tobacco: Former Cigarettes Q uit: 1970 Smokeless Tobacco: Never Alcohol Use Standard Drinks/Week Comments Yes 0 (1 standard drink = 0.6 oz pur e alcohol) ocasionally Education Answer Date Recorded Are you interested in more education? Not on hannah e 12/18/2022 Are you concerned about learning? Not on file 12/18/2022 No 12/18/2022 No 12/18/2022 Digital Access Answer Date Recorded No 01/17/2023 No 01/17/2023 Reliable internet access at home? Not on file 01/17/2023 Device with a working camera? Not on file Comments Unknown Sex and Gender Information Value Date Recorded Sex Assigned at Female 07/18/2019 4:10 PM EST Legal Sex Female 4:21 PM EST Gender Identity Female 07/18/2019 4:10 PM EST Sexual Orientation Not on file Last Filed Vital Signs Vital Sign Reading Time Taken Comments Blood Pressure 193/89 07/18/2019 4:07 PM EST Pulse 86 07/18/2019 4:07 PM EST Temperature 36.8 C (98.3 F) 07/18/2019 4:07 PM EST Respiratory Rate 22 07/18/2019 4:07 PM EST Oxygen Saturation 98% 07/18/2019 4:07 PM EST Inhaled Oxygen Concentration 3% 07/27/2017 1 0:47 AM EST Weight 104.3 kg (230 lb) 07/18/2019 4:07 PM EST Height 160 cm (5' 3 ) 07/18/2019 4:07 PM EST Body Mass Index 40.74 07/18/2019 4:07 PM EST Plan of Treatment Health Maintenance Due Date Last Done Comments Adult Td,Tdap Booster 1950 LIPID PANEL 1950 DEPRESSION SCREENING 1962 SMOKING Hx and SMOKELESS TOBACCO SCREENING 1963 HEPATITIS C SCREENING 1968 MAMMOGRAM 1990 COLOGUARD 1995 COLONOSCOPY 1995 COLORECTAL CANCER SCREENING 1995 FIT TEST 1995 FOBT 1995 SIGMOIDOSCOPY 1995 VIRTUAL COLONOSCOPY 1995 PNEUMOCOCCAL VACCINES (50+ years) (1 of 1 - PCV) 2000 OSTEOPOROSIS SCREENING INITIAL (ONE-TIME) 2015 CREATININE LEVEL 07/18/2020 07/18/2019, 03/2017, 07/29/2017, Additional history exists POTASSIUM LEVEL 07/18/2020 07/18/2019, 1203/2017, 07/29/2017, Additional history exists COVID-19 VACCINE ( season) 2024 12/31/2020, 12/10/2020 INFLUENZA VACCINE (#1) 2025 0, 06/06/2019, 08/15/2018, Additional history exists RSV VACCINE (1 - 1-dose 75+ series) 2025 ZOSTER VACCINES Completed 11/12/2020, 05/23/2020 HEPATITIS A VACCINES Aged Out No long er eligible based on patient's age to complete this topic HIB VACCINES Aged Out No longer eligi ble based on patient's age to complete this topic MENINGOCOCCAL VACCINES (ACWY) Aged Out No longer eligible based on patient's age to complete this topic MENINGOCOCCAL VACCINES (B) Aged Out N o longer eligible based on patient's age to complete this topic Medical Devices Implanted Type Area Undercollar Baster Device Identifier Shelf Expiration Date Model / Serial / Lot Cement Bone 40gr [employer] - [id number] Implanted:Qty: 2 on 07/27/2017 by Kevon Belle MD at [facility] [employer] 11/20/2018 [id number] / / [id number] Implant Knee 65.0mm Femoral Component Interlok Vanguard Open Box Right Ea Knee [id number] Implanted:Qty: 1 on 07/27/2017 by Kevon Belle MD at [facility] Knee [employer] 06/01/2027 [id number] / / [id number] Series A Pat W/Wr Std 34x8.5 1 Peg Knee [id number] Implanted:Qty: 1 on 07/27/2017 by Kevon Belle MD at [facility] Knee [employer] 06/10/2022 [id number] / / [id number] Plate Bone 67mm Knee Tibial Tray I Beam Locking Bar [employer]on Chrome Maxim Ea Knee 03a - [id number] Implanted:Qty: 1 on 07/27/2017 by Kevon Belle MD at [facility] Knee [employer] 06/10/2027 [id number] / / [id number] Knee Tibial Bearing E1 Vanguard Ps 63/67 X - [id number] Implanted:Qty: 1 on 07/27/2017 by Kevon Belle MD at [facility] Knee [employer] 06/28/2022 [id number] / / [id number] Procedures Procedure Name Priority Date/Time Associated Diagnosis Comments BASIC METABOLIC PANEL STAT 07/18/2019 4:22 PM EST from Last 3 Months or Most Recently Relevant to Health Maintenance Results * (ABNORMAL) Basic metabolic panel (07/18/2019 4:22 PM EST) SODIUM 134 133 - 146 mmol/L [facility] CHLORIDE 95(L) 96 - 108 mmol/L [facility] POTASSIUM 3.5 3.3 - 5.1 mmol/L [facility] CO2 24 21 - 35 mmol/L [facility] BUN 8 6 - 19 mg/dL [facility] CREATININE 0.90 0.5 - 1.5 mg/dL [facility] GLUCOSE 239(H) 70 - 99 mg/dL [facility] CALCIUM 9.1 8.4 - 10.3 mg/dL [facility] EGFR 66 >59 mL/min/1.7 3m2 [facility] Comment:If patient is black, multiply result by 1.159. Estimated glomerular filtration rate calculated using the CKD-EPI equation. ANION GAP 19 10 - 20 mmol/L [facility] Blood 07/18/2019 4:22 PM EST 07/18/2019 4:29 PM EST Herminia Viramontes PA-C LAB BLOOD ORDERABLES [place] Result [facility] [address] [place] [address] from Last 3 Months or Most Recently Relevant to Health Maintenance Insurance [facility] [employer] FAMILY [facility] [employer] FAMILY [facility] [employer] [facility] [employer] [facility] [employer] [facility] [employer] [facility] [employer] FAMILY [facility] [employer] [facility] [employer] FAMILY [employer] [employer] [employer] FAMILY Advance Directives For more information, please contact: [phone] (9AM - 5PM [place], Wednesday-Wednesday) Documents on File Type Date Recorded Patient Epic Trainer Expl anation Healthcare Proxy 08/02/2017 1:30 PM * Full Code (Presumed) (Latest Code Status on File) Date Activated Date Inactivated Comments 07/27/2017 10:37 AM 07/30/2017 1:30 PM * Full Code (Presumed) Date Activated Date Inactivated Comments 07/27/2017 6:35 AM 07/27/2017 10:37 AM Care Teams External Relations Director Relationship Specialty Start Date End Date Rohith Sutton MD [address] [place] [address] PCP - General 06/10/17 Additional Source Comments The information contained in this document represents components of the legal health record. It is not the complete legal health record.[facility]
--- OUTSIDE RECORDS SUMMARY | 2025-05-14 12:48 | XMS_ITS | Encounter Summary ---
Author Organization [facility] Address [address] [place] [address] Care Team Providers Care Pumping Plant Operator Name Role Phone Agueda Orozco MD Primary Care Provider [phone] Encounter Details Date Type Department Care Team (Late st Contact Info) Description 02/21/2025 Lab Requisition [facility] - Main Lab [address] [facility] [place] [phone] Agueda Orozco MD [address] [place] [address] Anemia, unspecified Social History Tobacco Use Types [...] Associated Diagnosis Comments COMPLETE BLOOD COUNT Routine 02/21/2025 6:12 AM EDT Anemia, unspecified COMPREHENSIVE METABOLIC PANEL Routine 02/21/2025 6:12 AM EDT Anemia, unspecified documented in this encounter Results * (ABNORMAL) Complete blood count (02/21/2025 6:12 AM EDT) WBC 5.9 4.8 - 10.8 K/[facility] LAB HEMETOLOGY METHOD 02/21/2025 9:06 AM [facility] RBC 2.70(L) 3.80 - 4.80 M/mcL LAB HEMETOLOGY METHOD 02/21/2025 9:06 AM [facility] LAB Hemoglobin 7.8(L) 11.5 - 16.0 g/dL LAB HEMETOLOGY METHOD 02/21/2025 9:06 AM [facility] LAB Hematocrit 25.5(L) 35.0 - 47.0 % LAB HEMETOLOGY METHOD 02/21/2025 9:06 AM [facility] LAB MCV 95.5 79.0 - 98.0 FL LAB HEMETOLOGY METHOD 02/21/2025 9:06 AM [facility] LAB MCH 29.2 27.0 - 32.0 pcg LAB HEMETOLOGY METHOD 02/21/2025 9:06 AM [facility] MCHC 30.6(L) 32.0 - 37.0 g/dL LAB HEMETOLOGY METHOD 02/21/2025 9:06 AM [facility] LAB RDW 15.1(H) 11.0 - 15.0 % LAB HEMETOLOGY METHOD 02/21/2025 9:06 AM [facility] Platelets 346 130 - 400 K/mcL LAB HEMETOLOGY METHOD 02/21/2025 9:06 AM [facility] LAB MPV 8.9 7.0 - 11.0 FL LAB HEMETOLOGY METHOD 02/21/2025 9:06 AM [facility] NRBC 0.0 <1.0 % LAB HEMETOLOGY METHOD 02/21/2025 9:06 AM [facility] NRBC Absolute 0.00 <0.10 K/mcL LAB HEMETOLOGY METHOD 02/21/2025 9:06 AM [facility] Blood Venous blood specimen / Unknown Venipuncture / Unknown 02/21/2025 6:12 AM EDT 02/21/2025 8:27 AM EDT Agueda Orozco MD LAB BLOOD ORDERABLES Final Resul t [facility] [address] [place] [address], * (ABNORMAL) Comprehensive metabolic panel (02/21/2025 6:12 AM EDT) Sodium 138 133 - 145 mmol/L LAB CHEMISTRY METHOD 02/21/2025 9:39 AM [facility] Potassium 4.2 3.5 - 5.5 mmol/L LAB CHEMISTRY METHOD 02/21/2025 9:39 AM [facility] Chloride 106 96 - 110 mmol/L LAB CHEMISTRY METHOD 02/21/2025 9:39 AM [facility] CO2 26 21 - 32 mmol/L LAB CHEMISTRY METHOD 02/21/2025 9:39 AM [facility] Anion Gap 6 3 - 11 LAB CHEMISTRY METHOD 02/21/2025 9:39 AM [facility] Glucose 73 70 - 100 mg/dL LAB CHEMISTRY METHOD 02/21/2025 9:39 AM [facility] BUN 31(H) 5 - 25 mg/dL LAB CHEMISTRY METHOD 02/21/2025 9:39 AM [facility] Creatinine 1.43(H) 0.50 - 1.10 mg/dL LAB CHEMISTRY METHOD 02/21/2025 9:39 AM [facility] LAB eGFR 39(L) >=60 mL/min/1. 73m2 LAB CHEMISTRY METHOD 02/21/2025 9:39 AM [facility] Comment:Calculation based on the Chronic Kidney Disease Epidemiology Collaboration (CKD-EPI) equation refit without adjustment for race. BUN/Creatinine Ratio 21.7 LAB CHEMISTRY METHOD 02/21/2025 9:39 AM [facility] Calcium 8.9 8.5 - 10.5 mg/dL LAB CHEMISTRY METHOD 02/21/2025 9:39 AM [facility] AST (SGOT) 111(H) 10 - 42 unit/L LAB CHEMISTRY METHOD 02/21/2025 9:39 AM [facility] ALT (SGPT) 86(H) 10 - 60 unit/L LAB CHEMISTRY METHOD 02/21/2025 9:39 AM [facility] Alkaline Phosphatase 113 42 - 121 unit/L LAB CHEMISTRY METHOD 02/21/2025 9:39 AM [facility] Total Protein 5.9(L) 6.0 - 8.0 g/dL LAB CHEMISTRY METHOD 02/21/2025 9:39 AM [facility] Albumin 2.8(L) 3.2 - 5.0 g/dL LAB CHEMISTRY METHOD 02/21/2025 9:39 AM [facility] Total Bilirubin 0.3 0.0 - 1.4 mg/dL LAB CHEMISTRY METHOD 02/21/2025 9:39 AM [facility] Blood Venous blood specimen / Unknown Venipuncture / Unknown 02/21/2025 6:12 AM EDT 02/21/2025 8:27 AM EDT us Agueda Orozco MD LAB BLOOD ORDERABLES Final Resul t [facility] [address] [place] [address], documented in this encounter Visit Diagnoses Diagnosis Anemia, unspecified documented in this encounter Care Teams Pumping Plant Operator Relationship Specialty Start Date End Date Agueda Orozco MD [address] [place] [address] [address] [place] [address] PCP - General Geriatric Medicine 02/06/25 documented as of this encounter
--- OUTSIDE RECORDS SUMMARY | 2025-05-14 12:48 | XMS_ITS | Encounter Summary ---
Author Organization [facility] Address [address] [place] [address] Phone Care Team Providers Care Primary School Teacher Librarian Name Role Phone Rohith Sutton MD Primary Care Provider [phone] Encounter Details Date Type Department Care Team (Late st Contact Info) Description 08/09/2017 Ancillary Orders [facility] [address] [place] [address] Jazmyn Hernandez PA-C [address] [place] [address] Orthopedics & Sports Medicine, [place], [place] [id number] [email or web address] Social History Tobacco Use Types Packs/Day Years [...] on filedocumented in this encounter Care Teams Primary School Teacher Librarian Relationship Specialty Start Date End Date Rohith Sutton MD [address] [place] [address] [address] [place] [address] PCP - General 06/10/17 documented as of this encounter Additional Source Comments The information contained in this document represents components of the legal health record. It is not the complete legal health record.[facility]
--- OUTSIDE RECORDS SUMMARY | 2025-05-14 12:48 | XMS_ITS | Encounter Summary ---
Author Organization [facility] Address [address] [place] [address] Care Team Providers Care Networking Administrator Name Role Phone Agueda Orozco MD Primary Care Provider [phone] Encounter Details Date Type Department Care Team (Late st Contact Info) Description 02/21/2025 Lab Requisition [facility] - Main Lab [address] [facility] [place] [address] Agueda Orozco MD [address] [place], [place] [phone] Type 2 diabetes mellitus without complications (CMS/HCC [...] V24, CMS/HCC V28) BASIC METABOLIC PANEL Routine 02/22/2025 5:25 AM EDT Type 2 diabetes mellitus without complications (CMS/HCC V24, CMS/HCC V28) documented in this encounter Results * (ABNORMAL) Complete blood count (02/22/2025 5:25 AM EDT) [facility] WBC 4.8 4.8 - 10.8 K/mcL LAB HEMETOLOGY METHOD 02/22/2025 9:46 AM [facility] LAB RBC 2.70(L) 3.80 - 4.80 M/mcL LAB HEMETOLOGY METHOD 02/22/2025 9:46 AM [facility] LAB Hemoglobin 8.2(L) 11.5 - 16.0 g/dL LAB HEMETOLOGY METHOD 02/22/2025 9:46 AM [facility] LAB Hematocrit 25.6(L) 35.0 - 47.0 % LAB HEMETOLOGY METHOD 02/22/2025 9:46 AM [facility] LAB MCV 94.5 79.0 - 98.0 FL LAB HEMETOLOGY METHOD 02/22/2025 9:46 AM [facility] LAB MCH 30.3 27.0 - 32.0 pcg LAB HEMETOLOGY METHOD 02/22/2025 9:46 AM [facility] LAB MCHC 32.0 32.0 - 37.0 g/dL LAB HEMETOLOGY METHOD 02/22/2025 9:46 AM [facility] LAB RDW 15.2(H) 11.0 - 15.0 % LAB HEMETOLOGY METHOD 02/22/2025 9:46 AM [facility] LAB Platelets 339 130 - 400 K/mcL LAB HEMETOLOGY METHOD 02/22/2025 9:46 AM [facility] LAB MPV 9.1 7.0 - 11.0 FL LAB HEMETOLOGY METHOD 02/22/2025 9:46 AM [facility] LAB NRBC 0.0 <1.0 % LAB HEMETOLOGY METHOD 02/22/2025 9:46 AM [facility] LAB NRBC Absolute 0.00 <0.10 K/mcL LAB HEMETOLOGY METHOD 02/22/2025 9:46 AM [facility] LAB Blood Venous blood specimen / Unknown Venipuncture / Unknown 02/22/2025 5:25 AM EDT 02/22/2025 9:08 AM EDT us Agueda Orozco MD LAB BLOOD ORDERABLES Final Resul t [facility] [address] [place] [address], [place] [phone] * (ABNORMAL) Basic metabolic panel (02/22/2025 5:25 AM EDT) Sodium 138 133 - 145 mmol/L LAB CHEMISTRY METHOD 02/22/2025 10:20 AM [facility] Potassium 4.0 3.5 - 5.5 mmol/L LAB CHEMISTRY METHOD 02/22/2025 10:20 AM [facility] Chloride 106 96 - 110 mmol/L LAB CHEMISTRY METHOD 02/22/2025 10:20 AM [facility] CO2 23 21 - 32 mmol/L LAB CHEMISTRY METHOD 02/22/2025 10:20 AM [facility] Anion Gap 9 3 - 11 LAB CHEMISTRY METHOD 02/22/2025 10:20 AM [facility] Glucose 57(L) 70 - 100 mg/dL LAB CHEMISTRY METHOD 02/22/2025 10:20 AM [facility] BUN 30(H) 5 - 25 mg/dL LAB CHEMISTRY METHOD 02/22/2025 10:20 AM [facility] Creatinine 1.38(H) 0.50 - 1.10 mg/dL LAB CHEMISTRY METHOD 02/22/2025 10:20 AM [facility] LAB eGFR 40(L) >=60 mL/min/1. 73m2 LAB CHEMISTRY METHOD 02/22/2025 10:20 AM EDT [facility] Comment:Calculation based on the Chronic Kidney Disease Epidemiology Collaboration (CKD-EPI) equation refit without adjustment for race. BUN/Creatinine Ratio 21.7 LAB CHEMISTRY METHOD 02/22/2025 10:20 AM EDT [facility] Calcium 8.6 8.5 - 10.5 mg/dL LAB CHEMISTRY METHOD 02/22/2025 10:20 AM EDT [facility] Blood Venous blood specimen / Unknown Venipuncture / Unknown 02/22/2025 5:25 AM EDT 02/22/2025 9:08 AM EDT us Agueda Orozco MD LAB BLOOD ORDERABLES Final Resul t [facility] [address] [place] [address], documented in this encounter Visit Diagnoses Diagnosis Type 2 diabetes mellitus without complications (CMS/HCC V24, CMS/HCC V28) documented in this encounter Care Teams Networking Administrator Relationship Specialty Start Date End Date Agueda Orozco MD [address] [place] [address] [address] [place] [address] PCP - General Geriatric Medicine 02/06/25 documented as of this encounter
== END 2025-05-14 10:29 | disposition home or self-care (01) ==
LOC: HO.LAB 10:28
PROVIDERS: PCP Internal Medicine; Visit Provider Internal Medicine Rheumatology
DX: Z79.60 Long term (current) use of unspecified immunomodulators and immunosuppressants (principal)
CPT/HCPCS: 36415; 84450; 84460; 85025; 85652; 86140

== ENCOUNTER 2025-06-14 09:51 | Outpatient (REF) | payer MEDICARE, SELFPAY ==
[2025-06-14 10:14] LABS: MANUAL DIFF FLAG NO
[2025-06-14 10:39] LABS: Hematocrit 34.5 % (37.0-47.0); Hemoglobin 11.0 g/dl (12.0-16.0); Imm Gran Abs Auto 0.02 X10*3/uL (0.00-0.03); Imm Gran Pct Auto 0.4 % (0.0-0.4); Lymphocytes Absolute Auto 0.7 X10*3/uL (1.2-4.9); Mean Corpuscular HGB Conc 31.9 g/dl (31.0-35.0); Mean Corpuscular Hemoglobin 28.2 pg (27.0-33.0); Mean Corpuscular Volume 88.5 fL (80.0-98.0); NRBC Abs Auto 0.000 X10*3/uL (0.0-0.012); NRBC Pct Auto 0.0 /100WBC (0.0-0.2); Platelet Count 259 X10*3/uL (160-400); Red Blood Count 3.90 X10*6/uL (4.20-5.50); White Blood Count 4.5 X10*3/uL (4.8-10.8)
[2025-06-14 11:03] LABS: Alanine Aminotransferase 12 U/L (0-31); Aspartate Amino Transferase 26 U/L (5-31); Estimated Glomerular Filt Rate 33
--- OUTSIDE RECORDS SUMMARY | 2025-06-14 11:23 | XMS_ITS | Encounter Summary ---
Author Organization [facility] Address [address] [place] [address] Care Team Providers Care Jewelry Sales Name Role Phone Agueda Orozco MD Primary Care Provider [phone] Encounter Details Date Type Department Care Team (Late st Contact Info) Description 02/15/2025 Lab Requisition [facility] - Main Lab [address] [facility] [place] [phone] Agueda Orozco MD [address] [place], [place] [id number] Type 2 diabetes mellitus without complications (CMS/HCC [...] Complete blood count (02/16/2025 5:01 AM EDT) [facility] WBC 6.9 4.8 - 10.8 K/mcL LAB HEMETOLOGY METHOD 02/16/2025 9:06 AM [facility] RBC 2.20(L) 3.80 - 4.80 M/mcL LAB HEMETOLOGY METHOD 02/16/2025 9:06 AM [facility] Hemoglobin 6.6(L) 11.5 - 16.0 g/dL LAB HEMETOLOGY METHOD 02/16/2025 9:06 AM [facility] LAB Hematocrit 21.3(L) 35.0 - 47.0 % LAB HEMETOLOGY METHOD 02/16/2025 9:06 AM [facility] LAB MCV 96.4 79.0 - 98.0 FL LAB HEMETOLOGY METHOD 02/16/2025 9:06 AM [facility] LAB MCH 29.9 27.0 - 32.0 pcg LAB HEMETOLOGY METHOD 02/16/2025 9:06 AM [facility] LAB MCHC 31.0(L) 32.0 - 37.0 g/dL LAB HEMETOLOGY METHOD 02/16/2025 9:06 AM [facility] LAB RDW 15.3(H) 11.0 - 15.0 % LAB HEMETOLOGY METHOD 02/16/2025 9:06 AM [facility] LAB Platelets 359 130 - 400 K/mcL LAB HEMETOLOGY METHOD 02/16/2025 9:06 AM [facility] LAB MPV 9.1 7.0 - 11.0 FL LAB HEMETOLOGY METHOD 02/16/2025 9:06 AM [facility] NRBC 0.0 <1.0 % LAB HEMETOLOGY METHOD 02/16/2025 9:06 AM [facility] LAB NRBC Absolute 0.00 <0.10 K/mcL LAB HEMETOLOGY METHOD 02/16/2025 9:06 AM [facility] LAB Blood Venous blood specimen / Unknown Venipuncture / Unknown 02/16/2025 5:01 AM EDT 02/16/2025 8:35 AM EDT us Agueda Orozco MD LAB BLOOD ORDERABLES Final Resul t [facility] [address] [place] [address], [place] [phone] * (ABNORMAL) Basic metabolic panel (02/16/2025 5:01 AM EDT) Sodium 138 133 - 145 mmol/L LAB CHEMISTRY METHOD 02/16/2025 9:30 AM [facility] Potassium 4.3 3.5 - 5.5 mmol/L LAB CHEMISTRY METHOD 02/16/2025 9:30 AM [facility] Chloride 106 96 - 110 mmol/L LAB CHEMISTRY METHOD 02/16/2025 9:30 AM [facility] CO2 25 21 - 32 mmol/L LAB CHEMISTRY METHOD 02/16/2025 9:30 AM [facility] Anion Gap 7 3 - 11 LAB CHEMISTRY METHOD 02/16/2025 9:30 AM [facility] Glucose 89 70 - 100 mg/dL LAB CHEMISTRY METHOD 02/16/2025 9:30 AM [facility] BUN 31(H) 5 - 25 mg/dL LAB CHEMISTRY METHOD 02/16/2025 9:30 AM [facility] Creatinine 1.49(H) 0.50 - 1.10 mg/dL LAB CHEMISTRY METHOD 02/16/2025 9:30 AM [facility] eGFR 37(L) >=60 mL/min/1. 73m2 LAB CHEMISTRY METHOD 02/16/2025 9:[address] [facility] Comment:Calculation based on the Chronic Kidney Disease Epidemiology Collaboration (CKD-EPI) equation refit without adjustment for race. BUN/Creatinine Ratio 20.8 LAB CHEMISTRY METHOD 02/16/2025 9:[address] [facility] Calcium 8.1(L) 8.5 - 10.5 mg/dL LAB CHEMISTRY METHOD 02/16/2025 9:[address] [facility] Blood Venous blood specimen / Unknown Venipuncture / Unknown 02/16/2025 5:01 AM EDT 02/16/2025 8:35 AM EDT Agueda Orozco MD LAB BLOOD ORDERABLES Final Resul t [facility] [address] [place] [address], documented in this encounter Visit Diagnoses Diagnosis Type 2 diabetes mellitus without complications (CMS/HCC V24, CMS/HCC V28) documented in this encounter Care Teams Jewelry Sales Relationship Specialty Start Date End Date Agueda Orozco MD [address] [place] [address] [address] [place] [address] PCP - General Geriatric Medicine 02/06/25 documented as of this encounter
--- OUTSIDE RECORDS SUMMARY | 2025-06-14 11:23 | XMS_ITS | Clinical Summary ---
Author Organization [facility] Address [address] [place] [address] Phone Care Team Providers Care Firer Watertender Name Role Phone Rohith Sutton MD Primary Care Provider [phone] Allergies Active Allergy Reactions Criticality Noted Date [...] 07/18/2020 07/18/2019, 1203/2017, 07/29/2017, Additional history exists INFLUENZA VACCINE (#1) 2025 , 06/06/2019, 08/15/2018, Additional history exists COVID-19 VACCINE ( - 2024- season) 2025 12/31/2020, 12/10/2020 RSV VACCINE (1 - 1-dose 75+ series) [...] this topic Medical Devices Implanted Type Area Director Corporate Security Device Identifier Shelf Expiration Date Model / Serial / Lot Cement Bone 40gr Oil Trough Ghv - [id number] Implanted:Qty: 2 on 07/27/2017 by Kevon Belle MD at [facility] [employer] 11/20/2018 [id number] / / [id number] Implant Knee 65.0mm Femoral Component Inter[employer]ok Vanguard Open Box Right Ea Knee [id number] Implanted:Qty: 1 on 07/27/2017 by Kevon Belle MD at [facility] Knee [employer] 06/01/2027 [id number] / / [id number] Series A Pat W/Wr Std 34x8.5 1 Peg Knee [id number] Implanted:Qty: 1 on 07/27/2017 by Kevon Belle MD at [facility] Knee [employer] 06/10/2022 [id number] / / [id number] Plate Bone 67mm Knee Tibial Tray I Beam Locking Bar Oil Trough Chrome Maxim Ea Knee 03a - [id number] Implanted:Qty: 1 on 07/27/2017 by Kevon Belle MD at [facility] Knee [employer] 06/10/2027 [id number] / / [id number] Knee Tibial Bearing E1 Vanguard Ps 63/67 X - [id number] Implanted:Qty: 1 on 07/27/2017 by Kevon Belle MD at [facility] Knee [employer] 06/28/2022 [id number] / / [id number] Procedures Procedure Name Priority Date/Time Associated Diagnosis Comments BASIC METABOLIC PANEL STAT 07/18/2019 4:22 PM EST from Last 3 Months or Most Recently Relevant to Health Maintenance Results * (ABNORMAL) Basic metabolic panel (07/18/2019 4:22 PM EST) SODIUM 134 133 - 146 mmol/L [facility] CHLORIDE 95(L) 96 - 108 mmol/L [facility] POTASSIUM 3.5 3.3 - 5.1 mmol/L [facility] CO2 24 21 - 35 mmol/L [facility] BUN 8 6 - 19 mg/dL [facility] CREATININE 0.90 0.5 - 1.5 mg/dL [facility] GLUCOSE 239(H) 70 - 99 mg/dL [facility] CALCIUM 9.1 8.4 - 10.3 mg/dL [facility] EGFR 66 >59 mL/min/1.7 3m2 [facility] Comment:If patient is black, multiply result by 1.159. Estimated glomerular filtration rate calculated using the CKD-EPI equation. ANION GAP 19 10 - 20 mmol/L [facility] Blood 07/18/2019 4:22 PM EST 07/18/2019 4:29 PM EST Herminia Viramontes PA-C LAB BLOOD ORDERABLES [place] Result [facility] [address] [place] [address] from Last 3 Months or Most Recently Relevant to Health Maintenance Insurance [employer] FAMILY [employer] FAM[employer] Advance Directives For more information, please contact: [phone] (9AM - 5PM [place], Wednesday-Wednesday) Documents on File Type Date Recorded Patient Campground Attendant Expl anation Healthcare Proxy 08/02/2017 1:30 PM * Full Code (Presumed) (Latest Code Status on File) Date Activated Date Inactivated Comments 07/27/2017 10:37 AM 07/30/2017 1:30 PM * Full Code (Presumed) Date Activated Date Inactivated Comments 07/27/2017 6:35 AM 07/27/2017 10:37 AM Care Teams Firer Watertender Relationship Specialty Start Date End Date Rohith Sutton MD [address] [place] [address] PCP - General 06/10/17 Additional Source Comments The information contained in this document represents components of the legal health record. It is not the complete legal health record.[facility]
--- OUTSIDE RECORDS SUMMARY | 2025-06-14 11:23 | XMS_ITS | Encounter Summary ---
Author Organization [facility] Address [address] [place] [address] Phone Care Team Providers Care Stage Producer Name Role Phone Rohith Sutton MD Primary Care Provider [phone] Encounter Details Date Type Department Care Team (Late st Contact Info) Description 07/27/2017 Procedure Pass OR Admitting Dept - Virtual Department [address] [place] [address] Social History Tobacco Use Types Packs/Day Years [...] on filedocumented in this encounter Care Teams Stage Producer Relationship Specialty Start Date End Date Rohith Sutton MD [address] [place] [address] PCP - General 06/10/17 documented as of this encounter Additional Source Comments The information contained in this document represents components of the legal health record. It is not the complete legal health record.[facility]
--- OUTSIDE RECORDS SUMMARY | 2025-06-14 11:23 | XMS_ITS | Encounter Summary ---
Author Organization [facility] Address [address] [place] [address] Care Team Providers Care Management And Budget Analyst Name Role Phone Agueda Orozco MD Primary Care Provider [phone] Encounter Details Date Type Department Care Team (Late st Contact Info) Description 02/08/2025 Lab Requisition [facility] - Main Lab [address] [facility] [place] [phone] Agueda Orozco MD [address] [place], [place] [id number] Type 2 diabetes mellitus without complications (CMS/HCC [...] Complete blood count (02/09/2025 6:26 AM EDT) [facility] WBC 6.6 4.8 - 10.8 K/mcL LAB HEMETOLOGY METHOD 02/09/2025 9:34 AM [facility] RBC 2.30(L) 3.80 - 4.80 M/mcL LAB HEMETOLOGY METHOD 02/09/2025 9:34 AM [facility] Hemoglobin 6.7(L) 11.5 - 16.0 g/dL LAB HEMETOLOGY METHOD 02/09/2025 9:34 AM [facility] Hematocrit 21.5(L) 35.0 - 47.0 % LAB HEMETOLOGY METHOD 02/09/2025 9:34 AM [facility] MCV 95.1 79.0 - 98.0 FL LAB HEMETOLOGY METHOD 02/09/2025 9:34 AM [facility] MCH 29.6 27.0 - 32.0 pcg LAB HEMETOLOGY METHOD 02/09/2025 9:34 AM [facility] MCHC 31.2(L) 32.0 - 37.0 g/dL LAB HEMETOLOGY METHOD 02/09/2025 9:34 AM [facility] RDW 15.7(H) 11.0 - 15.0 % LAB HEMETOLOGY METHOD 02/09/2025 9:34 AM [facility] Platelets 275 130 - 400 K/mcL LAB HEMETOLOGY METHOD 02/09/2025 9:34 AM [facility] MPV 9.6 7.0 - 11.0 FL LAB HEMETOLOGY METHOD 02/09/2025 9:34 AM [facility] NRBC 0.0 <1.0 % LAB HEMETOLOGY METHOD 02/09/2025 9:34 AM [facility] NRBC Absolute 0.00 <0.10 K/mcL LAB HEMETOLOGY METHOD 02/09/2025 9:34 AM [facility] Blood Venous blood specimen / Unknown Venipuncture / Unknown 02/09/2025 6:26 AM EDT 02/09/2025 9:15 AM EDT us Agueda Orozco MD LAB BLOOD ORDERABLES Final Resul t [facility] [address] [place] [address], [place] [phone] * (ABNORMAL) Basic metabolic panel (02/09/2025 6:26 AM EDT) Sodium 137 133 - 145 mmol/L LAB CHEMISTRY METHOD 02/09/2025 10:20 AM [facility] Potassium 3.9 3.5 - 5.5 mmol/L LAB CHEMISTRY METHOD 02/09/2025 10:20 AM [facility] Chloride 104 96 - 110 mmol/L LAB CHEMISTRY METHOD 02/09/2025 10:20 AM [facility] CO2 22 21 - 32 mmol/L LAB CHEMISTRY METHOD 02/09/2025 10:20 AM [facility] Anion Gap 11 3 - 11 LAB CHEMISTRY METHOD 02/09/2025 10:20 AM [facility] Glucose 85 70 - 100 mg/dL LAB CHEMISTRY METHOD 02/09/2025 10:20 AM [facility] BUN 37(H) 5 - 25 mg/dL LAB CHEMISTRY METHOD 02/09/2025 10:20 AM [facility] Creatinine 1.47(H) 0.50 - 1.10 mg/dL LAB CHEMISTRY METHOD 02/09/2025 10:20 AM [facility] eGFR 37(L) >=60 mL/min/1. 73m2 LAB CHEMISTRY METHOD 02/09/2025 10:[address] [facility] Comment:Calculation based on the Chronic Kidney Disease Epidemiology Collaboration (CKD-EPI) equation refit without adjustment for race. BUN/Creatinine Ratio 25.2 LAB CHEMISTRY METHOD 02/09/2025 10:[address] [facility] Calcium 8.0(L) 8.5 - 10.5 mg/dL LAB CHEMISTRY METHOD 02/09/2025 10:[address] [facility] Blood Venous blood specimen / Unknown Venipuncture / Unknown 02/09/2025 6:26 AM EDT 02/09/2025 9:15 AM EDT Agueda Orozco MD LAB BLOOD ORDERABLES Final Resul t [facility] [address] [place] [address], documented in this encounter Visit Diagnoses Diagnosis Type 2 diabetes mellitus without complications (CMS/HCC V24, CMS/HCC V28) documented in this encounter Care Teams Management And Budget Analyst Relationship Specialty Start Date End Date Agueda Orozco MD [address] [place] [address] [address] [place] [address] PCP - General Geriatric Medicine 02/06/25 documented as of this encounter
--- OUTSIDE RECORDS SUMMARY | 2025-06-14 11:23 | XMS_ITS | Encounter Summary ---
Author Organization [facility] Address [address] [place] [address] Care Team Providers Care Nursing Unit Manager Name Role Phone Agueda Orozco MD Primary Care Provider [phone] Encounter Details Date Type Department Care Team (Late st Contact Info) Description 02/21/2025 Lab Requisition [facility] - Main Lab [address] [facility] [place] [phone] Agueda Orozco MD [address] [place] [address] Anemia, unspecified Social History Tobacco Use Types [...] AM EDT) WBC 5.9 4.8 - 10.8 K/[facility] LAB HEMETOLOGY METHOD 02/21/2025 9:06 AM [facility] RBC 2.70(L) 3.80 - 4.80 M/mcL LAB HEMETOLOGY METHOD 02/21/2025 9:06 AM [facility] Hemoglobin 7.8(L) 11.5 - 16.0 g/dL LAB HEMETOLOGY METHOD 02/21/2025 9:06 AM [facility] Hematocrit 25.5(L) 35.0 - 47.0 % LAB HEMETOLOGY METHOD 02/21/2025 9:06 AM [facility] MCV 95.5 79.0 - 98.0 FL LAB HEMETOLOGY METHOD 02/21/2025 9:06 AM [facility] MCH 29.2 27.0 - 32.0 pcg LAB HEMETOLOGY METHOD 02/21/2025 9:06 AM [facility] MCHC 30.6(L) 32.0 - 37.0 g/dL LAB HEMETOLOGY METHOD 02/21/2025 9:06 AM [facility] RDW 15.1(H) 11.0 - 15.0 % LAB HEMETOLOGY METHOD 02/21/2025 9:06 AM [facility] Platelets 346 130 - 400 K/mcL LAB HEMETOLOGY METHOD 02/21/2025 9:06 AM [facility] MPV 8.9 7.0 - 11.0 FL LAB HEMETOLOGY METHOD 02/21/2025 9:06 AM [facility] NRBC 0.0 <1.0 % LAB HEMETOLOGY METHOD 02/21/2025 9:06 AM [facility] NRBC Absolute 0.00 <0.10 K/mcL LAB HEMETOLOGY METHOD 02/21/2025 9:06 AM [facility] Blood Venous blood specimen / Unknown Venipuncture / Unknown 02/21/2025 6:12 AM EDT 02/21/2025 8:27 AM EDT Agueda Orozco MD LAB BLOOD ORDERABLES Final Resul t [facility] [address] [place] [address], * (ABNORMAL) Comprehensive metabolic panel (02/21/2025 6:12 AM EDT) Sodium 138 133 - 145 mmol/L LAB CHEMISTRY METHOD 02/21/2025 9:39 AM [facility] Potassium 4.2 3.5 - 5.5 mmol/L LAB CHEMISTRY METHOD 02/21/2025 9:39 AM [facility] Chloride 106 96 - 110 mmol/L LAB CHEMISTRY METHOD 02/21/2025 9:39 AM [facility] CO2 26 21 - 32 mmol/L LAB CHEMISTRY METHOD 02/21/2025 9:39 AM [facility] Anion Gap 6 3 - 11 LAB CHEMISTRY METHOD 02/21/2025 9:39 AM [facility] Glucose 73 70 - 100 mg/dL LAB CHEMISTRY METHOD 02/21/2025 9:39 AM [facility] BUN 31(H) 5 - 25 mg/dL LAB CHEMISTRY METHOD 02/21/2025 9:39 AM [facility] Creatinine 1.43(H) 0.50 - 1.10 mg/dL LAB CHEMISTRY METHOD 02/21/2025 9:39 AM [facility] eGFR 39(L) >=60 mL/min/1. 73m2 LAB CHEMISTRY METHOD 02/21/2025 9:39 AM [facility] Comment:Calculation based on the Chronic Kidney Disease Epidemiology Collaboration (CKD-EPI) equation refit without adjustment for race. BUN/Creatinine Ratio 21.7 LAB CHEMISTRY METHOD 02/21/2025 9:39 AM [facility] Calcium 8.9 8.5 - 10.5 mg/dL LAB CHEMISTRY METHOD 02/21/2025 9:39 AM [facility] AST (SGOT) 111(H) 10 - 42 unit/L LAB CHEMISTRY METHOD 02/21/2025 9:39 AM [facility] ALT (SGPT) 86(H) 10 - 60 unit/L LAB CHEMISTRY METHOD 02/21/2025 9:39 AM [facility] Alkaline Phosphatase 113 42 - 121 unit/L LAB CHEMISTRY METHOD 02/21/2025 9:39 AM [facility] Total Protein 5.9(L) 6.0 - 8.0 g/dL LAB CHEMISTRY METHOD 02/21/2025 9:39 AM [facility] Albumin 2.8(L) 3.2 - 5.0 g/dL LAB CHEMISTRY METHOD 02/21/2025 9:39 AM [facility] Total Bilirubin 0.3 0.0 - 1.4 mg/dL LAB CHEMISTRY METHOD 02/21/2025 9:39 AM [facility] Blood Venous blood specimen / Unknown Venipuncture / Unknown 02/21/2025 6:12 AM EDT 02/21/2025 8:27 AM EDT us Agueda Orozco MD LAB BLOOD ORDERABLES Final Resul t [facility] [address] [place] [address], documented in this encounter Visit Diagnoses Diagnosis Anemia, unspecified documented in this encounter Care Teams Nursing Unit Manager Relationship Specialty Start Date End Date Agueda Orozco MD [address] [place] [address] [address] [place] [address] PCP - General Geriatric Medicine 02/06/25 documented as of this encounter
--- OUTSIDE RECORDS SUMMARY | 2025-06-14 11:23 | XMS_ITS | Encounter Summary ---
Author Organization [facility] Address [address] [place] [phone] Care Team Providers Care Waistband Setter Lockstitch Name Role Phone Agueda Orozco MD Primary Care Provider [phone] Encounter Details Date Type Department Care Team (Late st Contact Info) Description 02/06/2025 Lab Requisition [facility] - Main Lab 299 [facility] [place] [address] Agueda Orozco MD [address] [place], [place] [phone] Type 2 diabetes mellitus without complications (CMS/HCC [...] (ABNORMAL) Vitamin B12 (02/06/2025 6:44 AM EDT) [facility] Vitamin B-12 206(L) 250 - 900 pcg/mL LAB CHEMISTRY METHOD 02/06/2025 10:01 AM EDT [facility] Blood Venous blood specimen / Unknown Venipuncture / Unknown 02/06/2025 6:44 AM EDT 02/06/2025 8:36 AM EDT Agueda Orozco MD LAB BLOOD ORDERABLES Final Resul t Performing Organization Address [facility] Co de Phone Number [facility] [address] [place] [address], * (ABNORMAL) Folate (02/06/2025 6:44 AM EDT) Pathologist [facility] Folate >20.0(H) 2.8 - 17.0 ng/ml LAB CHEMISTRY METHOD 02/06/2025 10:01 AM EDT [facility] Blood Venous blood specimen / Unknown Venipuncture / Unknown 02/06/2025 6:44 AM EDT 02/06/2025 8:36 AM EDT us Agueda Orozco MD LAB BLOOD ORDERABLES Final Resul t Performing Organization Address [facility] de Phone Number [facility] [address] [place] [address], * Thyroid stimulating hormone (02/06/2025 6:44 AM EDT) [facility] TSH 3.26 0.40 - 4.00 mcIU/mL LAB CHEMISTRY METHOD 02/06/2025 10:27 AM EDT [facility] Blood Venous blood specimen / Unknown Venipuncture / Unknown 02/06/2025 6:44 AM EDT 02/06/2025 8:36 AM EDT us Agueda Orozco MD LAB BLOOD ORDERABLES Final Resul t Performing Organization Address [facility] de Phone Number [facility] [address] [place] [address], [place] [phone] * (ABNORMAL) Basic metabolic panel (02/06/2025 6:44 AM EDT) Pathologist [facility] Sodium 138 133 - 145 mmol/L LAB CHEMISTRY METHOD 02/06/2025 9:37 AM EDT [facility] Potassium 4.0 3.5 - 5.5 mmol/L LAB CHEMISTRY METHOD 02/06/2025 9:[address] [facility] Chloride 105 96 - 110 mmol/L LAB CHEMISTRY METHOD 02/06/2025 9:[address] [facility] CO2 25 21 - 32 mmol/L LAB CHEMISTRY METHOD 02/06/2025 9:[address] [facility] Anion Gap 8 3 - 11 LAB CHEMISTRY METHOD 02/06/2025 9:[address] [facility] Glucose 159(H) 70 - 100 mg/dL LAB CHEMISTRY METHOD 02/06/2025 9:[address] [facility] BUN 27(H) 5 - 25 mg/dL LAB CHEMISTRY METHOD 02/06/2025 9:[address] [facility] Creatinine 1.67(H) 0.50 - 1.10 mg/dL LAB CHEMISTRY METHOD 02/06/2025 9:[address] [facility] eGFR 32(L) >=60 mL/min/1. 73m2 LAB CHEMISTRY METHOD 02/06/2025 9:[address] [facility] Comment:Calculation based on the Chronic Kidney Disease Epidemiology Collaboration (CKD-EPI) equation refit without adjustment for race. BUN/Creatinine Ratio 16.2 LAB CHEMISTRY METHOD 02/06/2025 9:[address] [facility] Calcium 8.0(L) 8.5 - 10.5 mg/dL LAB CHEMISTRY METHOD 02/06/2025 9:[address] [facility] Blood Venous blood specimen / Unknown Venipuncture / Unknown 02/06/2025 6:44 AM EDT 02/06/2025 8:36 AM EDT us Agueda Orozco MD LAB BLOOD ORDERABLES Final Resul t [facility] [address] [place] [address], * (ABNORMAL) Complete blood count (02/06/2025 6:44 AM EDT) [facility] WBC 6.8 4.8 - 10.8 K/mcL LAB HEMETOLOGY METHOD 02/06/2025 9:[address] [facility] RBC 2.30(L) 3.80 - 4.80 M/mcL LAB HEMETOLOGY METHOD 02/06/2025 9:[address] [facility] Hemoglobin 7.3(L) 11.5 - 16.0 g/dL LAB HEMETOLOGY METHOD 02/06/2025 9:[address] [facility] Hematocrit 22.2(L) 35.0 - 47.0 % LAB HEMETOLOGY METHOD 02/06/2025 9:[address] [facility] MCV 96.5 79.0 - 98.0 FL LAB HEMETOLOGY METHOD 02/06/2025 9:[address] [facility] MCH 31.7 27.0 - 32.0 pcg LAB HEMETOLOGY METHOD 02/06/2025 9:[address] [facility] MCHC 32.9 32.0 - 37.0 g/dL LAB HEMETOLOGY METHOD 02/06/2025 9:[address] [facility] RDW 15.6(H) 11.0 - 15.0 % LAB HEMETOLOGY METHOD 02/06/2025 9:[address] [facility] Platelets 226 130 - 400 K/mcL LAB HEMETOLOGY METHOD 02/06/2025 9:[address] [facility] MPV 9.5 7.0 - 11.0 FL LAB HEMETOLOGY METHOD 02/06/2025 9:[address] [facility] NRBC 0.0 <1.0 % LAB HEMETOLOGY METHOD 02/06/2025 9:05 AM EDT [facility] NRBC Absolute 0.00 <0.10 K/mcL LAB HEMETOLOGY METHOD 02/06/2025 9:05 AM EDT [facility] Blood Venous blood specimen / Unknown Venipuncture / Unknown 02/06/2025 6:44 AM EDT 02/06/2025 8:36 AM EDT us Agueda Orozco MD LAB BLOOD ORDERABLES Final Resul t [facility] [address] [place] [address], documented in this encounter Visit Diagnoses Diagnosis Type 2 diabetes mellitus without complications (CMS/HCC V24, CMS/HCC V28) Rheumatoid arthritis, unspecified (CMS/HCC V24, CMS/[facility] V28) Chronic kidney disease, unspecified Essential (primary) hypertension Unspecified essential hypertension Hypothyroidism, unspecified Hyperlipidemia, unspecified documented in this encounter Care Teams Waistband Setter Lockstitch Relationship Specialty Start Date End Date Agueda Orozco MD [address] [place] [address] [address] [place] [address] PCP - General Geriatric Medicine 02/06/25 documented as of this encounter
--- OUTSIDE RECORDS SUMMARY | 2025-06-14 11:23 | XMS_ITS | Encounter Summary ---
Author Organization [facility] Address [address] [place] [address] Care Team Providers Care Flare Stitcher Name Role Phone Agueda Orozco MD Primary Care Provider [phone] Encounter Details Date Type Department Care Team (Late st Contact Info) Description 02/12/2025 Lab Requisition [facility] - Main Lab [address] [facility] [place] [id number] Agueda Orozco MD [address] [place] [address] Essential (primary) hypertension; Anemia, unspecified; Hyperlipidemia, unspecified [...] LAB CHEMISTRY METHOD 02/12/2025 2:52 PM EDT [facility] Blood Venous blood specimen / Unknown Venipuncture / Unknown 02/12/2025 5:42 AM EDT 02/12/2025 10:20 AM EDT us Agueda Orozco MD LAB BLOOD ORDERABLES Final Resul t Performing Organization Address [facility] de Phone Number [facility] [address] [place] [address], [place] [phone] * (ABNORMAL) Iron and TIBC (02/12/2025 5:42 AM EDT) Iron 25(L) 40 - 150 mcg/dL LAB CHEMISTRY METHOD 02/12/2025 12:20 PM EDT [facility] TIBC 231(L) 250 - 450 mcg/dL LAB CHEMISTRY METHOD 02/12/2025 12:20 PM EDT [facility] Iron Saturation 11(L) 15 - 50 % LAB CHEMISTRY METHOD 02/12/2025 12:20 PM EDT [facility] Blood Venous blood specimen / Unknown Venipuncture / Unknown 02/12/2025 5:42 AM EDT 02/12/2025 10:20 AM EDT us Agueda Orozco MD LAB BLOOD ORDERABLES Final Resul t Performing Organization Address [facility]/ZIP Pr de Phone Number [facility] [address] [place] [address], [place] [phone] * (ABNORMAL) Basic metabolic panel (02/12/2025 5:42 AM EDT) Sodium 136 133 - 145 mmol/L LAB CHEMISTRY METHOD 02/12/2025 12:20 PM [facility] Potassium 3.7 3.5 - 5.5 mmol/L LAB CHEMISTRY METHOD 02/12/2025 12:20 PM [facility] Chloride 102 96 - 110 mmol/L LAB CHEMISTRY METHOD 02/12/2025 12:20 PM [facility] CO2 23 21 - 32 mmol/L LAB CHEMISTRY METHOD 02/12/2025 12:20 PM [facility] Anion Gap 11 3 - 11 LAB CHEMISTRY METHOD 02/12/2025 12:20 PM [facility] Glucose 57(L) 70 - 100 mg/dL LAB CHEMISTRY METHOD 02/12/2025 12:20 PM [facility] BUN 34(H) 5 - 25 mg/dL LAB CHEMISTRY METHOD 02/12/2025 12:20 PM [facility] Creatinine 1.71(H) 0.50 - 1.10 mg/dL LAB CHEMISTRY METHOD 02/12/2025 12:20 PM [facility] eGFR 31(L) >=60 mL/min/1. 73m2 LAB CHEMISTRY METHOD 02/12/2025 12:20 PM [facility] Comment:Calculation based on the Chronic Kidney Disease Epidemiology Collaboration (CKD-EPI) equation refit without adjustment for race. BUN/Creatinine Ratio 19.9 LAB CHEMISTRY METHOD 02/12/2025 12:20 PM [facility] Calcium 7.8(L) 8.5 - 10.5 mg/dL LAB CHEMISTRY METHOD 02/12/2025 12:20 PM [facility] Blood Venous blood specimen / Unknown Venipuncture / Unknown 02/12/2025 5:42 AM EDT 02/12/2025 10:20 AM EDT us Agueda Orozco MD LAB BLOOD ORDERABLES Final Resul t [facility] [address] [place] [address], [place] [phone] * (ABNORMAL) Complete blood count (02/12/2025 5:42 AM EDT) WBC 5.3 4.8 - 10.8 K/mcL LAB HEMETOLOGY METHOD 02/12/2025 12:17 PM EDT [facility] RBC 2.10(L) 3.80 - 4.80 M/mcL LAB HEMETOLOGY METHOD [facility] Hemoglobin 6.6(L) 11.5 - 16.0 g/dL LAB HEMETOLOGY METHOD 02/12/2025 12:17 PM T [facility] Hematocrit 20.8(L) 35.0 - 47.0 % LAB HEMETOLOGY METHOD 02/12/2025 12:17 PM EDT [facility] MCV 97.7 79.0 - 98.0 FL LAB HEMETOLOGY METHOD 02/12/2025 12:17 PM [facility] MCH 31.0 27.0 - 32.0 pcg LAB HEMETOLOGY METHOD 02/12/2025 12:17 PM EDT [facility] MCHC 31.7(L) 32.0 - 37.0 g/dL LAB HEMETOLOGY METHOD 02/12/2025 12:17 PM [facility] RDW 15.8(H) 11.0 - 15.0 % LAB HEMETOLOGY METHOD 02/12/2025 12:17 PM [facility] Platelets 335 130 - 400 K/mcL LAB HEMETOLOGY METHOD 02/12/2025 12:17 PM EDT [facility] MPV 9.3 7.0 - 11.0 FL LAB HEMETOLOGY METHOD 02/12/2025 12:17 PM EDT [facility] NRBC 0.0 <1.0 % LAB HEMETOLOGY METHOD 02/12/2025 12:17 PM EDT [facility] NRBC Absolute 0.00 <0.10 K/mcL LAB HEMETOLOGY METHOD 02/12/2025 12:17 PM EDT [facility] Blood Venous blood specimen / Unknown Venipuncture / Unknown 02/12/2025 5:42 AM EDT 02/12/2025 10:20 AM EDT Agueda Orozco MD LAB BLOOD ORDERABLES Final Resul t [facility] [address] [place] [address], documented in this encounter Visit Diagnoses Diagnosis Essential (primary) hypertension Unspecified essential hypertension Anemia, unspecified Hyperlipidemia, unspecified documented in this encounter Care Teams Flare Stitcher Relationship Specialty Start Date End Date Agueda Orozco MD [address] [place] [address] [address] [place] [address] PCP - General Geriatric Medicine 02/06/25 documented as of this encounter
--- OUTSIDE RECORDS SUMMARY | 2025-06-14 11:23 | XMS_ITS | Encounter Summary ---
Author Organization [facility] Address [address] [place] [address] Phone Care Team Providers Care Video Production Engineer Name Role Phone Rohith Sutton MD Primary Care Provider [phone] Encounter Details Date Type Department Care Team (Late st Contact Info) Description 08/09/2017 Ancillary Orders [facility] Medicine [address] [place] [address] Jazmyn Hernandez PA-C [address] [place] [address] Orthopedics & Sports Medicine, [place], [place] [phone] [email or web address] Social History Tobacco Use Types Packs/Day Years [...] on filedocumented in this encounter Care Teams Video Production Engineer Relationship Specialty Start Date End Date Rohith Sutton MD [address] [place] [address] [address] [place] [address] PCP - General 06/10/17 documented as of this encounter Additional Source Comments The information contained in this document represents components of the legal health record. It is not the complete legal health record.[facility]
--- OUTSIDE RECORDS SUMMARY | 2025-06-14 11:23 | XMS_ITS | Encounter Summary ---
Author Organization [facility] Address [address] [place] [address] Care Team Providers Care Bottoming Room Inspector Name Role Phone Agueda Orozco MD Primary Care Provider [phone] Encounter Details Date Type Department Care Team (Late st Contact Info) Description 02/15/2025 Lab Requisition [facility] - Main Lab 299 [facility] [place] [address] Agueda Orozco MD [address] [place] [address] Essential (primary) hypertension Social History Tobacco Use [...] mmol/L LAB CHEMISTRY METHOD 02/15/2025 11:18 AM [facility] Potassium 4.1 3.5 - 5.5 mmol/L LAB CHEMISTRY METHOD 02/15/2025 11:18 AM [facility] Chloride 104 96 - 110 mmol/L LAB CHEMISTRY METHOD 02/15/2025 11:18 AM [facility] CO2 24 21 - 32 mmol/L LAB CHEMISTRY METHOD 02/15/2025 11:18 AM [facility] Anion Gap 8 3 - 11 LAB CHEMISTRY METHOD 02/15/2025 11:18 AM [facility] Glucose 70 70 - 100 mg/dL LAB CHEMISTRY METHOD 02/15/2025 11:18 AM [facility] BUN 33(H) 5 - 25 mg/dL LAB CHEMISTRY METHOD 02/15/2025 11:18 AM [facility] Creatinine 1.58(H) 0.50 - 1.10 mg/dL LAB CHEMISTRY METHOD 02/15/2025 11:18 AM [facility] eGFR 34(L) >=60 mL/min/1. 73m2 LAB CHEMISTRY METHOD 02/15/2025 11:18 AM [facility] Comment:Calculation based on the Chronic Kidney Disease Epidemiology Collaboration (CKD-EPI) equation refit without adjustment for race. BUN/Creatinine Ratio 20.9 LAB CHEMISTRY METHOD 02/15/2025 11:18 AM [facility] Calcium 8.3(L) 8.5 - 10.5 mg/dL LAB CHEMISTRY METHOD 02/15/2025 11:18 AM [facility] AST (SGOT) 62(H) 10 - 42 unit/L LAB CHEMISTRY METHOD 02/15/2025 11:18 AM [facility] ALT (SGPT) 71(H) 10 - 60 unit/L LAB CHEMISTRY METHOD 02/15/2025 11:18 AM [facility] Alkaline Phosphatase 85 42 - 121 unit/L LAB CHEMISTRY METHOD 02/15/2025 11:18 AM EDT [facility] Total Protein 5.7(L) 6.0 - 8.0 g/dL LAB CHEMISTRY METHOD 02/15/2025 11:18 AM T [facility] Albumin 2.5(L) 3.2 - 5.0 g/dL LAB CHEMISTRY METHOD 02/15/2025 11:18 AM EDT [facility] Total Bilirubin 0.4 0.0 - 1.4 mg/dL LAB CHEMISTRY METHOD 02/15/2025 11:18 AM EDT [facility] Blood Venous blood specimen / Unknown Venipuncture / Unknown 02/15/2025 5:54 AM EDT 02/15/2025 10:09 AM EDT us Agueda Orozco MD LAB BLOOD ORDERABLES Final Resul t [facility] [address] [place] [address], * (ABNORMAL) Complete blood count (02/15/2025 5:54 AM EDT) WBC 5.8 4.8 - 10.8 K/mcL LAB HEMETOLOGY METHOD 02/15/2025 10:54 AM [facility] RBC 2.30(L) 3.80 - 4.80 M/[facility] LAB HEMETOLOGY METHOD 02/15/2025 10:54 AM EDT [facility] Hemoglobin 6.7(L) 11.5 - 16.0 g/dL LAB HEMETOLOGY METHOD 02/15/2025 10:54 AM EDT [facility] Hematocrit 22.0(L) 35.0 - 47.0 % LAB HEMETOLOGY METHOD 02/15/2025 10:54 AM EDT [facility] MCV 96.5 79.0 - 98.0 FL LAB HEMETOLOGY METHOD 02/15/2025 10:54 AM EDT [facility] MCH 29.4 27.0 - 32.0 pcg LAB HEMETOLOGY METHOD 02/15/2025 10:54 AM EDT [facility] MCHC 30.5(L) 32.0 - 37.0 g/dL LAB HEMETOLOGY METHOD 02/15/2025 10:54 AM EDT [facility] RDW 15.5(H) 11.0 - 15.0 % LAB HEMETOLOGY METHOD 02/15/2025 10:54 AM EDT [facility] Platelets 373 130 - 400 K/mcL LAB HEMETOLOGY METHOD 02/15/2025 10:54 AM EDT [facility] MPV 9.1 7.0 - 11.0 FL LAB HEMETOLOGY METHOD 02/15/2025 10:54 AM EDT [facility] NRBC 0.0 <1.0 % LAB HEMETOLOGY METHOD 02/15/2025 10:54 AM T [facility] NRBC Absolute 0.00 <0.10 K/mcL LAB HEMETOLOGY METHOD 02/15/2025 10:54 AM T [facility] Blood Venous blood specimen / Unknown Venipuncture / Unknown 02/15/2025 5:54 AM EDT 02/15/2025 10:09 AM EDT us Agueda Orozco MD LAB BLOOD ORDERABLES Final Resul t [facility] [address] [place] [address], documented in this encounter Visit Diagnoses Diagnosis Essential (primary) hypertension Unspecified essential hypertension documented in this encounter Care Teams Bottoming Room Inspector Relationship Specialty Start Date End Date Agueda Orozco MD [address] [place] [address] [address] [place] [address] PCP - General Geriatric Medicine 02/06/25 documented as of this encounter
--- OUTSIDE RECORDS SUMMARY | 2025-06-14 11:23 | XMS_ITS | Encounter Summary ---
Author Organization [facility] Address [address] [place] [address] Care Team Providers Care Malt Specifications Control Assistant Name Role Phone Agueda Orozco MD Primary Care Provider [phone] Encounter Details Date Type Department Care Team (Late st Contact Info) Description 02/18/[address] [facility] - Main Lab 299 [facility] [place] [address] Agueda Orozco MD [address] [place] [address] Anemia, unspecified Social History Tobacco Use Types [...] ABO Group O 02/18/2025 12:08 PM EDT [facility] Rh Type Positive 02/18/2025 12:08 PM EDT [facility] Antibody Screen Negative 02/18/2025 12:08 PM EDT [facility] Blood Venous blood specimen / Unknown 02/18/2025 7:00 AM EDT 02/18/2025 9:02 AM EDT Agueda Orozco MD LAB BLOOD BANK TEST ORDERABLES F inal Result [facility] [address] [place] [address], documented in this encounter Visit Diagnoses Diagnosis Anemia, unspecified documented in this encounter Care Teams Malt Specifications Control Assistant Relationship Specialty Start Date End Date Agueda Orozco MD [address] [place] [address] [address] [place] [address] PCP - General Geriatric Medicine 02/06/25 documented as of this encounter
--- OUTSIDE RECORDS SUMMARY | 2025-06-14 11:23 | XMS_ITS | Encounter Summary ---
Author Organization [facility] Address [address] [place] [address] Care Team Providers Care Eligibility Services Representative Name Role Phone Agueda Orozco MD Primary Care Provider [phone] Encounter Details Date Type Department Care Team (Late st Contact Info) Description 03/01/2025 Lab Requisition [facility] - Main Lab 299 [facility] [place] [address] Agueda Orozco MD [address] [place], [place] [id number] Type 2 diabetes mellitus without complications (CMS/HCC [...] V28) documented in this encounter Care Teams Eligibility Services Representative Relationship Specialty Start Date End Date Agueda Orozco MD [address] [place], [place] [id number] PCP - General Geriatric Medicine 02/06/25 documented as of this encounter
--- OUTSIDE RECORDS SUMMARY | 2025-06-14 11:23 | XMS_ITS | Clinical Summary ---
Author Organization [address] [facility] Address [address] [place] [address] Phone Care Team Providers Care Ampoule Sealer Name Role Phone Agueda Orozco MD Primary Care Provider [phone] Allergies Active Allergy Reactions Criticality Noted Date [...] Problem Noted Date Diagnosed Date Anemia 02/19/2025 Social History Tobacco Use Types Packs/Day Years Used Date Smoking Tobacco: Never Assessed Comments Unknown Sex and Gender Information Value Date Recorded Sex Assigned at Female 02/19/2025 9:48 AM EDT Legal Sex Female 8:29 AM EDT Gender Identity Female 02/19/2025 9:48 AM EDT Sexual Orientation Straight 02/19/2025 9: 48 AM EDT Last Filed Vital Signs Vital [...] Last Done Comments Breast Cancer Screening 1950 Colorectal Cancer Screening: Colonoscopy 1950 Depression Screening 08/23/2024 Cholesterol Screening (Lipid Panel) 02/06/2025 Hepatitis C Screening 02/06/2025 Osteoporosis Screening (Bone Density Screening) 02/06/2025 Social Influencers of Health Screening 02/06/2025 COVID-19 Vaccine (4 - Mixed Product risk season) 2025 05/26/2024, 12/31/2020, 12/10/2020 Influenza Vaccine (#1) 2025 , 06/05/2023, 06/08/2022, Additional history exists Falls Risk Assessment 02/19/2026 02/19/2025 DTaP,Tdap,and Td Vaccines (3 - Td or [...] on patient's age to complete this topic Insurance [facility] Care Teams Ampoule Sealer Relationship Specialty Start Date End Date Agueda Orozco MD [address] [place] [address] [address] [place] [address] PCP - General Geriatric Medicine 02/06/25
--- OUTSIDE RECORDS SUMMARY | 2025-06-14 11:23 | XMS_ITS | Encounter Summary ---
Author Organization [facility] Address [address] [place] [address] Care Team Providers Care Boom Pump Operator Name Role Phone Agueda Orozco MD Primary Care Provider [phone] Encounter Details Date Type Department Care Team (Late st Contact Info) Description 02/21/2025 Lab Requisition [facility] - Main Lab 299 [facility] [place] [address] Agueda Orozco MD [address] [place], [place] [id number] Type 2 diabetes mellitus without complications (CMS/HCC [...] Complete blood count (02/22/2025 5:25 AM EDT) [facility] WBC 4.8 4.8 - 10.8 K/mcL LAB HEMETOLOGY METHOD 02/22/2025 9:46 AM [facility] RBC 2.70(L) 3.80 - 4.80 M/mcL LAB HEMETOLOGY METHOD 02/22/2025 9:46 AM [facility] Hemoglobin 8.2(L) 11.5 - 16.0 g/dL LAB HEMETOLOGY METHOD 02/22/2025 9:46 AM [facility] Hematocrit 25.6(L) 35.0 - 47.0 % LAB HEMETOLOGY METHOD 02/22/2025 9:46 AM [facility] MCV 94.5 79.0 - 98.0 FL LAB HEMETOLOGY METHOD 02/22/2025 9:46 AM [facility] MCH 30.3 27.0 - 32.0 pcg LAB HEMETOLOGY METHOD 02/22/2025 9:46 AM [facility] MCHC 32.0 32.0 - 37.0 g/dL LAB HEMETOLOGY METHOD 02/22/2025 9:46 AM [facility] RDW 15.2(H) 11.0 - 15.0 % LAB HEMETOLOGY METHOD 02/22/2025 9:46 AM [facility] Platelets 339 130 - 400 K/mcL LAB HEMETOLOGY METHOD 02/22/2025 9:46 AM [facility] MPV 9.1 7.0 - 11.0 FL LAB HEMETOLOGY METHOD 02/22/2025 9:46 AM [facility] NRBC 0.0 <1.0 % LAB HEMETOLOGY METHOD 02/22/2025 9:46 AM [facility] NRBC Absolute 0.00 <0.10 K/mcL LAB HEMETOLOGY METHOD 02/22/2025 9:46 AM [facility] Blood Venous blood specimen / Unknown Venipuncture / Unknown 02/22/2025 5:25 AM EDT 02/22/2025 9:08 AM EDT us Agueda Orozco MD LAB BLOOD ORDERABLES Final Resul t [facility] [address] [place] [address], [place] [phone] * (ABNORMAL) Basic metabolic panel (02/22/2025 5:25 AM EDT) Sodium 138 133 - 145 mmol/L LAB CHEMISTRY METHOD 02/22/2025 10:20 AM [facility] Potassium 4.0 3.5 - 5.5 mmol/L LAB CHEMISTRY METHOD 02/22/2025 10:20 AM [facility] Chloride 106 96 - 110 mmol/L LAB CHEMISTRY METHOD 02/22/2025 10:20 AM [facility] CO2 23 21 - 32 mmol/L LAB CHEMISTRY METHOD 02/22/2025 10:20 AM [facility] Anion Gap 9 3 - 11 LAB CHEMISTRY METHOD 02/22/2025 10:20 AM [facility] Glucose 57(L) 70 - 100 mg/dL LAB CHEMISTRY METHOD 02/22/2025 10:20 AM [facility] BUN 30(H) 5 - 25 mg/dL LAB CHEMISTRY METHOD 02/22/2025 10:20 AM [facility] Creatinine 1.38(H) 0.50 - 1.10 mg/dL LAB CHEMISTRY METHOD 02/22/2025 10:20 AM [facility] eGFR 40(L) >=60 mL/min/1. 73m2 LAB CHEMISTRY METHOD 02/22/2025 10:20 AM EDT [facility] Comment:Calculation based on the Chronic Kidney Disease Epidemiology Collaboration (CKD-EPI) equation refit without adjustment for race. BUN/Creatinine Ratio 21.7 LAB CHEMISTRY METHOD 02/22/2025 10:20 AM EDT [facility] Calcium 8.6 8.5 - 10.5 mg/dL LAB CHEMISTRY METHOD 02/22/2025 10:20 AM EDT [facility] Blood Venous blood specimen / Unknown Venipuncture / Unknown 02/22/2025 5:25 AM EDT 02/22/2025 9:08 AM EDT us Agueda Orozco MD LAB BLOOD ORDERABLES Final Resul t [facility] [address] [place] [address], documented in this encounter Visit Diagnoses Diagnosis Type 2 diabetes mellitus without complications (CMS/HCC V24, CMS/HCC V28) documented in this encounter Care Teams Boom Pump Operator Relationship Specialty Start Date End Date Agueda Orozco MD [address] [place] [address] [address] [place] [address] PCP - General Geriatric Medicine 02/06/25 documented as of this encounter
--- OUTSIDE RECORDS SUMMARY | 2025-06-14 11:24 | XMS_ITS | Encounter Summary ---
Author Organization [facility] Address [address] [place] [phone] Phone Care Team Providers Care Partnership Manager Name Role Phone Rohith Sutton MD Primary Care Provider [phone] Encounter Details Date Type Department Care Team (Late st Contact Info) Description 08/09/2017 Ancillary Orders [address] [address] Jazmyn Hernandez PA-C [address] [place] [address] Orthopedics & Sports Medicine, [place] [address] [email or web address] Right knee pain, unspecified chronicity Social History [...] chronicity documented in this encounter Care Teams Partnership Manager Relationship Specialty Start Date End Date Rohith Sutton MD [address] [place] [address] PCP - General 06/10/17 documented as of this encounter Additional Source Comments The information contained in this document represents components of the legal health record. It is not the complete legal health record.[facility]
== END 2025-06-14 09:52 | disposition home or self-care (01) ==
LOC: HO.LAB 09:51
PROVIDERS: PCP Internal Medicine; Visit Provider Internal Medicine Rheumatology
DX: Z51.81 Encounter for therapeutic drug level monitoring (principal); Z79.60 Long term (current) use of unspecified immunomodulators and immunosuppressants
CPT/HCPCS: 36415; 82565; 84450; 84460; 85025; 85652; 86140

== ENCOUNTER 2025-07-05 09:06 | Outpatient (AMB) | payer MEDICARE, SELFPAY ==
[2025-07-05 09:12] VITALS: BP 120/70; PULSE 85; O2SAT 100; BMI 43.2
--- NOTE | 2025-07-05 09:12 | MHC.OFFVIS ---
Vital Signs 07/05/25 09:12 Height 5 ft 3 in Weight 243 lb 13.3 oz BMI 43.2 BP 120/70 Blood Pressure Location Lt brachial Position Sitting Pulse 85 Pulse Source Pulse Oximeter Pulse Oximetry (%) 100 Oxygen Delivery Method Room Air Intake Visit Reasons: 3months Intake Note: Pt present today for rheumatoid arthritis. Accompanied by: Self / Same As Patient Allergies novocaine Adverse Reaction (Mild, Uncoded 01/10/25 09:47) shaky, cold IVP dye Adverse Reaction (Unknown, Uncoded 01/10/25 09:47) extremely cold HPI HPI 3months: Details: No morning stiffness. No new joint swelling. No infection. [facility] Medical History CKD stage 3a, GFR 45-59 ml/min Rheumatoid arthritis Type 2 diabetes mellitus Surgical History S/p total knee replacement, bilateral Social History Household Members: None Household Members Other:: 4 cats Housing: House Do you presently have visiting nurse or other home services: No Patient Tobacco Use Status: Former Tobacco user Second Hand Smoke Exposure: No Substance Use Type: Caffiene service: No Physical Exam Vital Signs: Last Vital Signs Pulse 85 07/05/25 09:12 BP 120/70 07/05/25 09:12 Pulse Ox 100 07/05/25 09:12 Oxygen Delivery Method Room Air 07/05/25 09:12 BMI result Body Mass Index 43.2 Const Other: General: Comfortable CVS: RRR Respiratory: clear to auscultation bilaterally. Good respiratory effort Skin: No lesions seen MSK: She has persistent synovitis of right 2nd to 3rd MCP without tenderness. Tender right 3rd PIP. Normal range of motion of upper extremities. Bilateral knee flexion 90 degrees. No tenderness of ankles or MTPs. Assessment & Plan Assessment & Plan (1) Rheumatoid arthritis: Comment: She continues to have persistent synovitis right 2nd and 3rd MCP. Transaminitis resolved off of methotrexate. She also has improvement of anemia off of methotrexate. Inflammatory markers are elevated likely due to disease activity. She is tolerating leflunomide. I will optimize dose by increasing leflunomide to better control inflammatory arthritis. 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 Methotrexate started 11/09/2020 to 03/2025 d/c transaminitis and possibly leading to normocytic anemia requiring transfusion June 2024 during hospitalization. Leflunomide 04/2025- History of CKD. Code(s): M06.9 - Rheumatoid arthritis, unspecified Category: Medical Qualifiers: Rheumatoid factor presence: without rheumatoid factor Laterality: bilateral Plan: Labs for drug monitoring are up-to-date May 2025. She will have labs at our follow-up visit in 12 week Increase leflunomide 20 mg daily Immunizations: She is up-to-date with the flu shot. She does not want to have COVID-19 vaccine. Return to clinic in 3 months (2) Other housekeeping/laundry supervisor (current) drug therapy: Code(s): Z79.899 - Other housekeeping/laundry supervisor (current) drug therapy Category: Medical Plan: See above Plan . Orders: Orders Alanine Aminotransferase 3 Months Z79.899 - Other housekeeping/laundry supervisor (current) drug therapy Aspartate Amino Transferase 3 Months Z79.899 - Other housekeeping/laundry supervisor (current) drug therapy Creatinine 3 Months Z79.899 - Other housekeeping/laundry supervisor (current) drug therapy Complete Blood Count Auto Diff 3 Months Z79.899 - Other housekeeping/laundry supervisor (current) drug therapy C Reactive Protein 3 Months Z79.899 - Other alf (current) drug therapy Erythrocyte Sedimentation Rate 3 Months Z79.899 - Other housekeeping/laundry supervisor (current) drug therapy Medications: New leflunomide 20 mg PO DAILY 90 tabs 0RF Coding Level of Care Code Est Pt Level 4 (74669) Complex EM visit Add On G2211 Diagnoses Rheumatoid arthritis M06.9 Rheumatoid factor presence: without rheumatoid factor Laterality: bilateral Other alf (current) drug therapy Z79.899
--- OUTSIDE RECORDS SUMMARY | 2025-07-05 09:59 | XMS_ITS | Clinical Summary ---
Author Organization [address] [facility] Address [address] [place] [address] Phone Care Team Providers Care Rn Sexual Assault Name Role Phone Agueda Orozco MD Primary Care Provider [phone] Allergies Active Allergy Reactions Criticality Noted Date [...] Influencers of Health Screening 02/06/2025 COVID-19 Vaccine ( season) 2025 05/26/2024, 12/31/2020, 12/10/2020 Influenza Vaccine [...] patient's age to complete this topic Insurance [facility] Care Teams Rn Sexual Assault Relationship Specialty Start Date End Date Agueda Orozco MD [address] [place] [address] [address] [place] [address] PCP - General Geriatric Medicine 02/06/25
--- OUTSIDE RECORDS SUMMARY | 2025-07-05 09:59 | XMS_ITS | Encounter Summary ---
Author Organization [facility] Address [address] [place] [address] Phone Care Team Providers Care Barrel Brander Name Role Phone Rohith Sutton MD Primary Care Provider [phone] Encounter Details Date Type Department Care Team (Late st Contact Info) Description 08/09/2017 Ancillary Orders [facility] [address] [place] [address] Jazmyn Hernandez PA-C [address] [place] [address] Orthopedics & Sports Medicine, [place], [place] [phone] [email or web address] Social History Tobacco Use Types Packs/Day Years [...] on filedocumented in this encounter Care Teams Barrel Brander Relationship Specialty Start Date End Date Rohith Sutton MD [address] [place] [address] [address] [place] [address] PCP - General 06/10/17 documented as of this encounter Additional Source Comments The information contained in this document represents components of the legal health record. It is not the complete legal health record.[facility]
--- OUTSIDE RECORDS SUMMARY | 2025-07-05 09:59 | XMS_ITS | Encounter Summary ---
Author Organization [facility] Address [address] [place] [address] Care Team Providers Care Scale Model Maker Name Role Phone Agueda Orozco MD Primary Care Provider [phone] Encounter Details Date Type Department Care Team (Late st Contact Info) Description 02/12/2025 Lab Requisition [facility] - Main Lab [address] [facility] [place] [phone] Agueda Orozco MD [address] [place] [address] Essential (primary) hypertension; Anemia, unspecified; Hyperlipidemia, unspecified [...] ORDERABLES Final Resul t Performing Organization Address [facility] de Phone Number [facility] [address] [place] [address], [place] [phone] * (ABNORMAL) Iron and TIBC (02/12/2025 5:42 [...] ORDERABLES Final Resul t Performing Organization Address [facility]/ZIP [place] de Phone Number [facility] [address] [place] [address], [place] [phone] * (ABNORMAL) Basic metabolic panel (02/12/2025 5:42 AM EDT) Sodium 136 133 - 145 mmol/L LAB CHEMISTRY METHOD 02/12/2025 12:20 PM [facility] Potassium 3.7 3.5 - 5.5 mmol/L LAB CHEMISTRY METHOD 02/12/2025 12:20 PM [facility] Chloride 102 96 - 110 mmol/L LAB CHEMISTRY METHOD 02/12/2025 12:20 PM [facility] CO2 23 21 - 32 mmol/L LAB CHEMISTRY METHOD 02/12/2025 12:20 PM [facility] Anion Gap 11 3 - 11 LAB CHEMISTRY METHOD 02/12/2025 12:20 PM [facility] Glucose 57(L) 70 - 100 mg/dL LAB CHEMISTRY METHOD 02/12/2025 12:20 PM [facility] BUN 34(H) 5 - 25 mg/dL LAB CHEMISTRY METHOD 02/12/2025 12:20 PM [facility] Creatinine 1.71(H) 0.50 - 1.10 mg/dL LAB CHEMISTRY METHOD 02/12/2025 12:20 PM [facility] eGFR 31(L) >=60 mL/min/1. 73m2 LAB CHEMISTRY METHOD 02/12/2025 12:20 PM [facility] Comment:Calculation based on the Chronic Kidney Disease Epidemiology Collaboration (CKD-EPI) equation refit without adjustment for race. BUN/Creatinine Ratio 19.9 LAB CHEMISTRY METHOD 02/12/2025 12:20 PM [facility] Calcium 7.8(L) 8.5 - 10.5 mg/dL LAB CHEMISTRY METHOD 02/12/2025 12:20 PM [facility] Blood Venous blood specimen / Unknown Venipuncture / Unknown 02/12/2025 5:42 AM EDT 02/12/2025 10:20 AM EDT us Agueda Orozco MD LAB BLOOD ORDERABLES Final Resul t [facility] [address] [place] [address], [place] [phone] * (ABNORMAL) Complete blood count (02/12/2025 5:42 AM EDT) WBC 5.3 4.8 - 10.8 K/mcL LAB HEMETOLOGY METHOD 02/12/2025 12:17 PM EDT [facility] RBC 2.10(L) 3.80 - 4.80 M/mcL LAB HEMETOLOGY METHOD 02/12[facility]2025 [facility] Hemoglobin 6.6(L) 11.5 - 16.0 g/dL LAB HEMETOLOGY METHOD 02/12/2025 12:17 PM T [facility] Hematocrit 20.8(L) 35.0 - 47.0 % LAB HEMETOLOGY METHOD 02/12/2025 12:17 PM EDT [facility] MCV 97.7 79.0 - 98.0 FL LAB HEMETOLOGY METHOD 02/12/2025 12:17 PM [facility] MCH 31.0 27.0 - 32.0 pcg LAB HEMETOLOGY METHOD 02/12/2025 12:17 PM EDT [facility] MCHC 31.7(L) 32.0 - 37.0 g/dL LAB HEMETOLOGY METHOD 02/12/2025 12:17 PM [facility] RDW 15.8(H) 11.0 - 15.0 % LAB HEMETOLOGY METHOD 02/12/2025 12:17 PM [facility] Platelets 335 130 - 400 [...] Resul t [facility] [address] [place] [address], documented in this encounter Visit Diagnoses Diagnosis Essential (primary) hypertension Unspecified essential hypertension Anemia, unspecified Hyperlipidemia, unspecified documented in this encounter Care Teams Scale Model Maker Relationship Specialty Start Date End Date Agueda Orozco MD [address] [place] [address] [address] [place] [address] PCP - General Geriatric Medicine 02/06/25 documented as of this encounter
--- OUTSIDE RECORDS SUMMARY | 2025-07-05 09:59 | XMS_ITS | Encounter Summary ---
Author Organization [facility] Address [address] [place] [address] Care Team Providers Care Car Sealer Name Role Phone Agueda Orozco MD Primary Care Provider [phone] Encounter Details Date Type Department Care Team (Late st Contact Info) Description 02/21/2025 Lab Requisition [facility] - Main Lab [address] [facility] [address] [place] [address] Agueda Orozco MD [address] [place], [place] [id number] Type 2 diabetes mellitus without complications (CMS/HCC [...] Complete blood count (02/22/2025 5:25 AM EDT) [facility] WBC 4.8 4.8 - 10.8 K/mcL LAB HEMETOLOGY METHOD 02/22/2025 9:46 AM [facility] RBC 2.70(L) 3.80 - 4.80 M/mcL LAB HEMETOLOGY METHOD 02/22/2025 9:46 AM [facility] Hemoglobin 8.2(L) 11.5 - 16.0 g/dL LAB HEMETOLOGY METHOD 02/22/2025 9:46 AM [facility] Hematocrit 25.6(L) 35.0 - 47.0 % LAB HEMETOLOGY METHOD 02/22/2025 9:46 AM [facility] MCV 94.5 79.0 - 98.0 FL LAB HEMETOLOGY METHOD 02/22/2025 9:46 AM [facility] MCH 30.3 27.0 - 32.0 pcg LAB HEMETOLOGY METHOD 02/22/2025 9:46 AM [facility] MCHC 32.0 32.0 - 37.0 g/dL LAB HEMETOLOGY METHOD 02/22/2025 9:46 AM [facility] RDW 15.2(H) 11.0 - 15.0 % LAB HEMETOLOGY METHOD 02/22/2025 9:46 AM [facility] Platelets 339 130 - 400 K/mcL LAB HEMETOLOGY METHOD 02/22/2025 9:46 AM [facility] MPV 9.1 7.0 - 11.0 FL LAB HEMETOLOGY METHOD 02/22/2025 9:46 AM [facility] NRBC 0.0 <1.0 % LAB HEMETOLOGY METHOD 02/22/2025 9:46 AM [facility] NRBC Absolute 0.00 <0.10 K/mcL LAB HEMETOLOGY METHOD 02/22/2025 9:46 AM [facility] Blood Venous blood specimen / Unknown Venipuncture / Unknown 02/22/2025 5:25 AM EDT 02/22/2025 9:08 AM EDT us Agueda Orozco MD LAB BLOOD ORDERABLES Final Resul t [facility] [address] [place] [address], [place] [phone] * (ABNORMAL) Basic metabolic panel (02/22/2025 5:25 AM EDT) Sodium 138 133 - 145 mmol/L LAB CHEMISTRY METHOD 02/22/2025 10:20 AM [facility] Potassium 4.0 3.5 - 5.5 mmol/L LAB CHEMISTRY METHOD 02/22/2025 10:20 AM [facility] Chloride 106 96 - 110 mmol/L LAB CHEMISTRY METHOD 02/22/2025 10:20 AM [facility] CO2 23 21 - 32 mmol/L LAB CHEMISTRY METHOD 02/22/2025 10:20 AM [facility] Anion Gap 9 3 - 11 LAB CHEMISTRY METHOD 02/22/2025 10:20 AM [facility] Glucose 57(L) 70 - 100 mg/dL LAB CHEMISTRY METHOD 02/22/2025 10:20 AM [facility] BUN 30(H) 5 - 25 mg/dL LAB CHEMISTRY METHOD 02/22/2025 10:20 AM [facility] Creatinine 1.38(H) 0.50 - 1.10 mg/dL LAB CHEMISTRY METHOD 02/22/2025 10:20 AM [facility] eGFR 40(L) >=60 mL/min/1. 73m2 LAB CHEMISTRY METHOD 02/22/2025 10:20 AM EDT [facility] Comment:Calculation based on the Chronic Kidney Disease Epidemiology Collaboration (CKD-EPI) equation refit without adjustment for race. BUN/Creatinine Ratio 21.7 LAB CHEMISTRY METHOD 02/22/2025 10:20 AM EDT [facility] Calcium 8.6 8.5 - 10.5 mg/dL LAB CHEMISTRY METHOD 02/22/2025 10:20 AM EDT [facility] Blood Venous blood specimen / Unknown Venipuncture / Unknown 02/22/2025 5:25 AM EDT 02/22/2025 9:08 AM EDT us Agueda Orozco MD LAB BLOOD ORDERABLES Final Resul t [facility] [address] [place] [address], documented in this encounter Visit Diagnoses Diagnosis Type 2 diabetes mellitus without complications (CMS/HCC V24, CMS/HCC V28) documented in this encounter Care Teams Car Sealer Relationship Specialty Start Date End Date Agueda Orozco MD [address] [place] [address] [address] [place] [address] PCP - General Geriatric Medicine 02/06/25 documented as of this encounter
--- OUTSIDE RECORDS SUMMARY | 2025-07-05 09:59 | XMS_ITS | Encounter Summary ---
Author Organization [facility] Address [address] [place] [address] Phone Care Team Providers Care Release Of Information Clerk Name Role Phone Rohith Sutton MD Primary Care Provider [phone] Encounter Details Date Type Department Care Team (Late st Contact Info) Description 08/09/2017 Ancillary Orders [address] [address] Jazmyn Hernandez PA-C [address] [place] [address] Orthopedics & Sports Medicine, [place] [address] [email or web address] Right knee pain, unspecified chronicity Social History [...] chronicity documented in this encounter Care Teams Release Of Information Clerk Relationship Specialty Start Date End Date Rohith Sutton MD [address] [place] [address] PCP - General 06/10/17 documented as of this encounter Additional Source Comments The information contained in this document represents components of the legal health record. It is not the complete legal health record.[facility]
--- OUTSIDE RECORDS SUMMARY | 2025-07-05 09:59 | XMS_ITS | Encounter Summary ---
Author Organization [facility] Address [address] [place] [address] Care Team Providers Care Machine Mover Name Role Phone Agueda Orozco MD Primary Care Provider [phone] Encounter Details Date Type Department Care Team (Late st Contact Info) Description 02/15/2025 Lab Requisition [facility] - Main Lab [address] [facility] [place] [address] Agueda Orozco MD [address] [place] [address] Essential (primary) hypertension Social History Tobacco Use [...] mmol/L LAB CHEMISTRY METHOD 02/15/2025 11:18 AM [facility] Potassium 4.1 3.5 - 5.5 mmol/L LAB CHEMISTRY METHOD 02/15/2025 11:18 AM [facility] Chloride 104 96 - 110 mmol/L LAB CHEMISTRY METHOD 02/15/2025 11:18 AM [facility] CO2 24 21 - 32 mmol/L LAB CHEMISTRY METHOD 02/15/2025 11:18 AM [facility] Anion Gap 8 3 - 11 LAB CHEMISTRY METHOD 02/15/2025 11:18 AM [facility] Glucose 70 70 - 100 mg/dL LAB CHEMISTRY METHOD 02/15/2025 11:18 AM [facility] BUN 33(H) 5 - 25 mg/dL LAB CHEMISTRY METHOD 02/15/2025 11:18 AM [facility] Creatinine 1.58(H) 0.50 - 1.10 mg/dL LAB CHEMISTRY METHOD 02/15/2025 11:18 AM [facility] eGFR 34(L) >=60 mL/min/1. 73m2 LAB CHEMISTRY METHOD 02/15/2025 11:18 AM [facility] Comment:Calculation based on the Chronic Kidney Disease Epidemiology Collaboration (CKD-EPI) equation refit without adjustment for race. BUN/Creatinine Ratio 20.9 LAB CHEMISTRY METHOD 02/15/2025 11:18 AM [facility] Calcium 8.3(L) 8.5 - 10.5 mg/dL LAB CHEMISTRY METHOD 02/15/2025 11:18 AM [facility] AST (SGOT) 62(H) 10 - 42 unit/L LAB CHEMISTRY METHOD 02/15/2025 11:18 AM [facility] ALT (SGPT) 71(H) 10 - 60 unit/L LAB CHEMISTRY METHOD 02/15/2025 11:18 AM [facility] Alkaline Phosphatase 85 42 - 121 unit/L LAB CHEMISTRY METHOD 02/15/2025 11:18 AM EDT [facility] Total Protein 5.7(L) 6.0 - 8.0 g/dL LAB CHEMISTRY METHOD 02/15/2025 11:18 AM T [facility] Albumin 2.5(L) 3.2 - 5.0 g/dL LAB CHEMISTRY METHOD 02/15/2025 11:18 AM EDT [facility] Total Bilirubin 0.4 0.0 - 1.4 mg/dL LAB CHEMISTRY METHOD 02/15/2025 11:18 AM EDT [facility] Blood Venous blood specimen / Unknown Venipuncture / Unknown 02/15/2025 5:54 AM EDT 02/15/2025 10:09 AM EDT us Agueda Orozco MD LAB BLOOD ORDERABLES Final Resul t [facility] [address] [place] [address], * (ABNORMAL) Complete blood count (02/15/2025 5:54 AM EDT) WBC 5.8 4.8 - 10.8 K/mcL LAB HEMETOLOGY METHOD 02/15/2025 10:54 AM [facility] RBC 2.30(L) 3.80 - 4.80 M/[facility] LAB HEMETOLOGY METHOD 02/15/2025 10:54 AM EDT [facility] Hemoglobin 6.7(L) 11.5 - 16.0 g/dL LAB HEMETOLOGY METHOD 02/15/2025 10:54 AM EDT [facility] Hematocrit 22.0(L) 35.0 - 47.0 % LAB HEMETOLOGY METHOD 02/15/2025 10:54 AM EDT [facility] MCV 96.5 79.0 - 98.0 FL LAB HEMETOLOGY METHOD 02/15/2025 10:54 AM EDT [facility] MCH 29.4 27.0 - 32.0 pcg LAB HEMETOLOGY METHOD 02/15/2025 10:54 AM EDT [facility] MCHC 30.5(L) 32.0 - 37.0 g/dL LAB HEMETOLOGY METHOD 02/15/2025 10:54 AM EDT [facility] RDW 15.5(H) 11.0 - 15.0 % LAB HEMETOLOGY METHOD 02/15/2025 10:54 AM EDT [facility] Platelets 373 130 - 400 K/mcL LAB HEMETOLOGY METHOD 02/15/2025 10:54 AM EDT [facility] MPV 9.1 7.0 - 11.0 FL LAB HEMETOLOGY METHOD 02/15/2025 10:54 AM EDT [facility] NRBC 0.0 <1.0 % LAB HEMETOLOGY METHOD 02/15/2025 10:54 AM T [facility] NRBC Absolute 0.00 <0.10 K/mcL LAB HEMETOLOGY METHOD 02/15/2025 10:54 AM T [facility] Blood Venous blood specimen / Unknown Venipuncture / Unknown 02/15/2025 5:54 AM EDT 02/15/2025 10:09 AM EDT us Agueda Orozco MD LAB BLOOD ORDERABLES Final Resul t [facility] [address] [place] [address], documented in this encounter Visit Diagnoses Diagnosis Essential (primary) hypertension Unspecified essential hypertension documented in this encounter Care Teams Machine Mover Relationship Specialty Start Date End Date Agueda Orozco MD [address] [place] [address] [address] [place] [address] PCP - General Geriatric Medicine 02/06/25 documented as of this encounter
--- OUTSIDE RECORDS SUMMARY | 2025-07-05 09:59 | XMS_ITS | Encounter Summary ---
Author Organization [facility] [place] [facility] Address [address] [place] [address] Care Team Providers Care Muck Hauler Name Role Phone Agueda Orozco MD Primary Care Provider [phone] Encounter Details Date Type Department Care Team (Late st Contact Info) Description 03/01/[address] [facility] - Main Lab [address] [facility] [place] [address] Agueda Orozco MD [address] [place], [place] [id number] Type 2 diabetes mellitus without complications (CMS/HCC [...] V28) documented in this encounter Care Teams Muck Hauler Relationship Specialty Start Date End Date Agueda Orozco MD [address] [place], [place] [id number] PCP - General Geriatric Medicine 02/06/25 documented as of this encounter
--- OUTSIDE RECORDS SUMMARY | 2025-07-05 09:59 | XMS_ITS | Encounter Summary ---
Author Organization [facility] Address [address] [place] [address] Care Team Providers Care Cryptological Technician Name Role Phone Agueda Orozco MD Primary Care Provider [phone] Encounter Details Date Type Department Care Team (Late st Contact Info) Description 02/06/2025 Lab Requisition [facility] - Main Lab 299 [facility] [place] [address] Agueda Orozco MD [address] [place], [place] [id number] Type 2 diabetes mellitus without complications (CMS/HCC [...] (ABNORMAL) Vitamin B12 (02/06/2025 6:44 AM EDT) [facility] Vitamin B-12 206(L) 250 - 900 pcg/mL LAB CHEMISTRY METHOD 02/06/2025 10:01 AM EDT [facility] Blood Venous blood specimen / Unknown Venipuncture / Unknown 02/06/2025 6:44 AM EDT 02/06/2025 8:36 AM EDT Agueda Orozco MD LAB BLOOD ORDERABLES Final Resul t Performing Organization Address [facility] Co de Phone Number [facility] [address] [place] [address], * (ABNORMAL) Folate (02/06/2025 6:44 AM EDT) Pathologist [facility] Folate >20.0(H) 2.8 - 17.0 ng/ml LAB CHEMISTRY METHOD 02/06/2025 10:01 AM EDT [facility] Blood Venous blood specimen / Unknown Venipuncture / Unknown 02/06/2025 6:44 AM EDT 02/06/2025 8:36 AM EDT us Agueda Oroczo MD LAB BLOOD ORDERABLES Final Resul t Performing Organization Address [facility] de Phone Number [facility] [address] [place] [address], * Thyroid stimulating hormone (02/06/2025 6:44 AM EDT) [facility] TSH 3.26 0.40 - 4.00 mcIU/mL LAB CHEMISTRY METHOD 02/06/2025 10:27 AM EDT [facility] Blood Venous blood specimen / Unknown Venipuncture / Unknown 02/06/2025 6:44 AM EDT 02/06/2025 8:36 AM EDT us Agueda Orozco MD LAB BLOOD ORDERABLES Final Resul t Performing Organization Address [facility] de Phone Number [facility] [address] [place] [address], [place] [phone] * (ABNORMAL) Basic metabolic panel (02/06/2025 6:44 AM EDT) Pathologist [facility] Sodium 138 133 - 145 mmol/L LAB CHEMISTRY METHOD 02/06/2025 9:37 AM EDT [facility] Potassium 4.0 3.5 - 5.5 mmol/L LAB CHEMISTRY METHOD 02/06/2025 9:37 AM [facility] Chloride 105 96 - 110 mmol/L LAB CHEMISTRY METHOD 02/06/2025 9:37 AM [facility] CO2 25 21 - 32 mmol/L LAB CHEMISTRY METHOD 02/06/2025 9:37 AM [facility] Anion Gap 8 3 - 11 LAB CHEMISTRY METHOD 02/06/2025 9:37 AM [facility] Glucose 159(H) 70 - 100 mg/dL LAB CHEMISTRY METHOD 02/06/2025 9:37 AM [facility] BUN 27(H) 5 - 25 mg/dL LAB CHEMISTRY METHOD 02/06/2025 9:37 AM [facility] Creatinine 1.67(H) 0.50 - 1.10 mg/dL LAB CHEMISTRY METHOD 02/06/2025 9:37 AM [facility] eGFR 32(L) >=60 mL/min/1. 73m2 LAB CHEMISTRY METHOD 02/06/2025 9:37 AM [facility] Comment:Calculation based on the Chronic Kidney Disease Epidemiology Collaboration (CKD-EPI) equation refit without adjustment for race. BUN/Creatinine Ratio 16.2 LAB CHEMISTRY METHOD 02/06/2025 9:37 AM [facility] Calcium 8.0(L) 8.5 - 10.5 mg/dL LAB CHEMISTRY METHOD 02/06/2025 9:37 AM [facility] Blood Venous blood specimen / Unknown Venipuncture / Unknown 02/06/2025 6:44 AM EDT 02/06/2025 8:36 AM EDT us Agueda Orozco MD LAB BLOOD ORDERABLES Final Resul t [facility] [address] [place] [address], * (ABNORMAL) Complete blood count (02/06/2025 6:44 AM EDT) [facility] WBC 6.8 4.8 - 10.8 K/mcL LAB HEMETOLOGY METHOD 02/06/2025 9:05 AM [facility] RBC 2.30(L) 3.80 - 4.80 M/mcL LAB HEMETOLOGY METHOD 02/06/2025 9:05 AM [facility] Hemoglobin 7.3(L) 11.5 - 16.0 g/dL LAB HEMETOLOGY METHOD 02/06/2025 9:05 AM [facility] Hematocrit 22.2(L) 35.0 - 47.0 % LAB HEMETOLOGY METHOD 02/06/2025 9:05 AM [facility] MCV 96.5 79.0 - 98.0 FL LAB HEMETOLOGY METHOD 02/06/2025 9:05 AM [facility] MCH 31.7 27.0 - 32.0 pcg LAB HEMETOLOGY METHOD 02/06/2025 9:05 AM [facility] MCHC 32.9 32.0 - 37.0 g/dL LAB HEMETOLOGY METHOD 02/06/2025 9:05 AM [facility] RDW 15.6(H) 11.0 - 15.0 % LAB HEMETOLOGY METHOD 02/06/2025 9:05 AM [facility] Platelets 226 130 - 400 K/mcL LAB HEMETOLOGY METHOD 02/06/2025 9:05 AM [facility] MPV 9.5 7.0 - 11.0 FL LAB HEMETOLOGY METHOD 02/06/2025 9:05 AM [facility] NRBC 0.0 <1.0 % LAB HEMETOLOGY METHOD 02/06/2025 9:05 AM EDT [facility] NRBC Absolute 0.00 <0.10 K/mcL LAB HEMETOLOGY METHOD 02/06/2025 9:05 AM EDT [facility] Blood Venous blood specimen / Unknown Venipuncture / Unknown 02/06/2025 6:44 AM EDT 02/06/2025 8:36 AM EDT us Agueda Orozco MD LAB BLOOD ORDERABLES Final Resul t [facility] [address] [place] [address], documented in this encounter Visit Diagnoses Diagnosis Type 2 diabetes mellitus without complications (CMS/HCC V24, CMS/HCC V28) Rheumatoid arthritis, unspecified (CMS/HCC V24, CMS/[facility] V28) Chronic kidney disease, unspecified Essential (primary) hypertension Unspecified essential hypertension Hypothyroidism, unspecified Hyperlipidemia, unspecified documented in this encounter Care Teams Cryptological Technician Relationship Specialty Start Date End Date Agueda Orozco MD [address] [place] [address] [address] [place] [address] PCP - General Geriatric Medicine 02/06/25 documented as of this encounter
--- OUTSIDE RECORDS SUMMARY | 2025-07-05 09:59 | XMS_ITS | Encounter Summary ---
Author Organization [facility] Address [address] [place] [address] Care Team Providers Care Airplane Tube Builder Name Role Phone Agueda Orozco MD Primary Care Provider [phone] Encounter Details Date Type Department Care Team (Late st Contact Info) Description 02/08/[address] [facility] - Main Lab 299 [facility] [place] [phone] Agueda Orozco MD [address] [place], [place] [id number] Type 2 diabetes mellitus without complications (CMS/HCC [...] Complete blood count (02/09/2025 6:26 AM EDT) [facility] WBC 6.6 4.8 - 10.8 K/mcL LAB [...] MD LAB BLOOD ORDERABLES Final Resul t [facility] [address] [place] [address], [place] [phone] * (ABNORMAL) Basic metabolic panel (02/09/2025 6:26 [...] LAB CHEMISTRY METHOD 02/09/2025 10:20 AM EDT [facility] Comment:Calculation based on the Chronic Kidney Disease Epidemiology Collaboration (CKD-EPI) equation refit without adjustment for race. BUN/Creatinine Ratio 25.2 LAB CHEMISTRY METHOD 02/09/2025 10:20 AM EDT [facility] Calcium 8.0(L) 8.5 - 10.5 mg/dL LAB CHEMISTRY METHOD 02/09/2025 10:20 AM EDT [facility] Blood Venous blood specimen / Unknown Venipuncture / Unknown 02/09/2025 6:26 AM EDT 02/09/2025 9:15 AM EDT Agueda Orozco MD LAB BLOOD ORDERABLES Final Resul t [facility] [address] [place] [address], documented in this encounter Visit Diagnoses Diagnosis Type 2 diabetes mellitus without complications (CMS/HCC V24, CMS/HCC V28) documented in this encounter Care Teams Airplane Tube Builder Relationship Specialty Start Date End Date Agueda Orozco MD [address] [place] [address] [address] [place] [address] PCP - General Geriatric Medicine 02/06/25 documented as of this encounter
--- OUTSIDE RECORDS SUMMARY | 2025-07-05 09:59 | XMS_ITS | Encounter Summary ---
Author Organization [facility] Address [address] [place] [phone] Phone Care Team Providers Care Nurse Case Manager Name Role Phone Rohith Sutton MD Primary Care Provider [phone] Encounter Details Date Type Department Care Team (Late st Contact Info) Description 07/27/2017 Procedure Pass OR Admitting Dept - Virtual Department [address] [place] [address] Social History Tobacco Use Types Packs/Day Years [...] on filedocumented in this encounter Care Teams Nurse Case Manager Relationship Specialty Start Date End Date Rohith Sutton MD [address] [place] [id number] PCP - General 06/10/17 documented as of this encounter Additional Source Comments The information contained in this document represents components of the legal health record. It is not the complete legal health record.[facility]
--- OUTSIDE RECORDS SUMMARY | 2025-07-05 09:59 | XMS_ITS | Clinical Summary ---
Author Organization [facility] Address [address] [place] [address] Phone Care Team Providers Care Care Professional Name Role Phone Rohith Sutton MD Primary Care Provider [phone] Allergies Active Allergy Reactions Criticality Noted Date [...] TOBACCO SCREENING 1963 HEPATITIS C SCREENING 1968 PNEUMOCOCCAL VACCINES (50+ years) (1 of 2 - PCV) 1969 MAMMOGRAM 1990 COLOGUARD 1995 COLONOSCOPY 1995 COLORECTAL CANCER SCREENING 1995 FIT TEST 1995 FOBT 1995 SIGMOIDOSCOPY 1995 VIRTUAL COLONOSCOPY 1995 OSTEOPOROSIS SCREENING INITIAL (ONE-TIME) 2015 CREATININE LEVEL 07/18/2020 07/18/2019, 03/2017, 07/29/2017, Additional history exists POTASSIUM LEVEL 07/18/2020 07/18/2019, 1203/2017, 07/29/2017, Additional history exists INFLUENZA VACCINE (#1) 2025 , 06/06/2019, 08/15/2018, Additional history exists COVID-19 VACCINE (2024- season) 2025 12/31/2020, 12/10/2020 RSV VACCINE (1 - 1-dose 75+ series) 2025 ZOSTER VACCINES Completed 11/12/2020, 05/23/2020 HEPATITIS A VACCINES Aged Out No long er eligible based on patient's age to complete this topic HIB VACCINES Aged Out No longer eligi ble based on patient's age to complete this topic IPV VACCINES Aged Out No longer eligi ble based on patient's age to complete this topic MENINGOCOCCAL VACCINES (ACWY) Aged Out No longer eligible based on patient's age to complete this topic MENINGOCOCCAL VACCINES (B) Aged Out N o longer eligible based on patient's age to complete this topic Medical Devices Implanted Type Area Tour Consultant Device Identifier Shelf Expiration Date Model / Serial / Lot Cement Bone 40gr Merrillan Ghv - [id number] Implanted:Qty: 2 on 07/27/2017 by Kevon Belle MD at [facility] [employer] 11/20/2018 [id number] / / [id number] Implant Knee 65.0mm Femoral Component Inter[employer]ok Vanguard Open Box Right Ea Knee [id number] Implanted:Qty: 1 on 07/27/2017 by Kevon Belle MD at [facility] Knee [employer] 06/01/2027 [id number] / / [id number] Series A Pat W/Wr Std 34x8.5 1 Peg Knee [id number] Implanted:Qty: 1 on 07/27/2017 by Kevon Belle MD at [facility] Knee [employer] 06/10/2022 [id number] / / [id number] Plate Bone 67mm Knee Tibial Tray I Beam Locking Bar Merrillan Chrome Maxim Ea Knee 03a - [id number] Implanted:Qty: 1 on 07/27/2017 by Kevon Belle MD at [facility] Knee [employer] 06/10/2027 [id number] / / [id number] Knee Tibial Bearing E1 Vanguard Ps 63/67 X 12 - [id number] Implanted:Qty: 1 on 07/27/2017 by Kevon Belle MD at [facility] Knee [employer] 06/28/2022 [id number] / / [id number] Procedures Procedure Name Priority Date/Time Associated Diagnosis Comments BASIC METABOLIC PANEL (BMP) STAT 07/18/2019 4:22 PM EST from Last 3 Months or Most Recently Relevant to Health Maintenance Results * (ABNORMAL) Basic metabolic panel (07/18/2019 4:22 PM EST) SODIUM 134 133 - 146 mmol/L [facility] CHLORIDE 95(L) 96 - 108 mmol/L [facility] POTASSIUM 3.5 3.3 - 5.1 mmol/L [facility] CO2 24 21 - 35 mmol/L [facility] BUN 8 6 - 19 mg/dL [facility] CREATININE 0.90 0.5 - 1.5 mg/dL [facility] GLUCOSE 239(H) 70 - 99 mg/dL [facility] CALCIUM 9.1 8.4 - 10.3 mg/dL [facility] EGFR 66 >59 mL/min/1.7 3m2 [facility] Comment:If patient is black, multiply result by 1.159. Estimated glomerular filtration rate calculated using the CKD-EPI equation. ANION GAP 19 10 - 20 mmol/L [facility] Blood 07/18/2019 4:22 PM EST 07/18/2019 4:29 PM EST us Herminia Viramontes PA-C LAB BLOOD BKR ORDERABLES Final Result [facility] [address] [place] [address] from Last 3 Months or Most Recently Relevant to Health Maintenance Insurance [facility] [employer] FAMILY [facility] [employer] FAMILY [facility] [employer] [facility] [employer] [facility] [employer] [facility] [employer]ILY [facility] [employer] FAMILY [facility] [employer] [facility] [employer] FAMILY [employer] [employer] FAMILY Advance Directives For more information, please contact: [phone] (9AM - 5PM [facility], Wednesday-Wednesday) Documents on File Type Date Recorded Patient Loft Rigger Expl [facility] Proxy 08/02/2017 1:30 PM * Full Code (Presumed) (Latest Code Status on File) Date Activated Date Inactivated Comments 07/27/2017 10:37 AM 07/30/2017 1:30 PM * Full Code (Presumed) Date Activated Date Inactivated Comments 07/27/2017 6:35 AM 07/27/2017 10:37 AM Care Teams Care Professional Relationship Specialty Start Date End Date Rohith Sutton MD [address] [place] [address] PCP - General 06/10/17 Additional Source Comments The information contained in this document represents components of the legal health record. It is not the complete legal health record.[facility]
--- OUTSIDE RECORDS SUMMARY | 2025-07-05 09:59 | XMS_ITS | Encounter Summary ---
Author Organization [facility] Address [address] [place] [address] Care Team Providers Care Chief Program Officer Name Role Phone Agueda Orozco MD Primary Care Provider [phone] Encounter Details Date Type Department Care Team (Late st Contact Info) Description 02/21/2025 Lab Requisition [facility] - Main Lab 299 [facility] [place] [phone] Agueda Orozco MD [address] [place] [address] Anemia, unspecified Social History Tobacco Use Types [...] EDT) WBC 5.9 4.8 - 10.8 K/[facility] LAB HEMETOLOGY METHOD 02/21/2025 9:06 AM [facility] RBC 2.70(L) 3.80 - 4.80 M/mcL LAB HEMETOLOGY METHOD 02/21/2025 9:06 AM [facility] Hemoglobin 7.8(L) 11.5 - 16.0 g/dL LAB HEMETOLOGY METHOD 02/21/2025 9:06 AM [facility] Hematocrit 25.5(L) 35.0 - 47.0 % LAB HEMETOLOGY METHOD 02/21/2025 9:06 AM [facility] MCV 95.5 79.0 - 98.0 FL LAB HEMETOLOGY METHOD 02/21/2025 9:06 AM [facility] MCH 29.2 27.0 - 32.0 pcg LAB HEMETOLOGY METHOD 02/21/2025 9:06 AM [facility] MCHC 30.6(L) 32.0 - 37.0 g/dL LAB HEMETOLOGY METHOD 02/21/2025 9:06 AM [facility] RDW 15.1(H) 11.0 - 15.0 % LAB HEMETOLOGY METHOD 02/21/2025 9:06 AM [facility] Platelets 346 130 - 400 K/mcL LAB HEMETOLOGY METHOD 02/21/2025 9:06 AM [facility] MPV 8.9 7.0 - 11.0 FL LAB HEMETOLOGY METHOD 02/21/2025 9:06 AM [facility] NRBC 0.0 <1.0 % LAB HEMETOLOGY METHOD 02/21/2025 9:06 AM [facility] NRBC Absolute 0.00 <0.10 K/mcL LAB HEMETOLOGY METHOD 02/21/2025 9:06 AM [facility] Blood Venous blood specimen / Unknown Venipuncture / Unknown 02/21/2025 6:12 AM EDT 02/21/2025 8:27 AM EDT Agueda Orozco MD LAB BLOOD ORDERABLES Final Resul t [facility] [address] [place] [address], * (ABNORMAL) Comprehensive metabolic panel (02/21/2025 6:12 AM EDT) Sodium 138 133 - 145 mmol/L LAB CHEMISTRY METHOD 02/21/2025 9:39 AM [facility] Potassium 4.2 3.5 - 5.5 mmol/L LAB CHEMISTRY METHOD 02/21/2025 9:39 AM [facility] Chloride 106 96 - 110 mmol/L LAB CHEMISTRY METHOD 02/21/2025 9:39 AM [facility] CO2 26 21 - 32 mmol/L LAB CHEMISTRY METHOD 02/21/2025 9:39 AM [facility] Anion Gap 6 3 - 11 LAB CHEMISTRY METHOD 02/21/2025 9:39 AM [facility] Glucose 73 70 - 100 mg/dL LAB CHEMISTRY METHOD 02/21/2025 9:39 AM [facility] BUN 31(H) 5 - 25 mg/dL LAB CHEMISTRY METHOD 02/21/2025 9:39 AM [facility] Creatinine 1.43(H) 0.50 - 1.10 mg/dL LAB CHEMISTRY METHOD 02/21/2025 9:39 AM [facility] eGFR 39(L) >=60 mL/min/1. 73m2 LAB CHEMISTRY METHOD 02/21/2025 9:39 AM [facility] Comment:Calculation based on the Chronic Kidney Disease Epidemiology Collaboration (CKD-EPI) equation refit without adjustment for race. BUN/Creatinine Ratio 21.7 LAB CHEMISTRY METHOD 02/21/2025 9:39 AM [facility] Calcium 8.9 8.5 - 10.5 mg/dL LAB CHEMISTRY METHOD 02/21/2025 9:39 AM [facility] AST (SGOT) 111(H) 10 - 42 unit/L LAB CHEMISTRY METHOD 02/21/2025 9:39 AM [facility] ALT (SGPT) 86(H) 10 - 60 unit/L LAB CHEMISTRY METHOD 02/21/2025 9:39 AM [facility] Alkaline Phosphatase 113 42 - 121 unit/L LAB CHEMISTRY METHOD 02/21/2025 9:39 AM [facility] Total Protein 5.9(L) 6.0 - 8.0 g/dL LAB CHEMISTRY METHOD 02/21/2025 9:39 AM [facility] Albumin 2.8(L) 3.2 - 5.0 g/dL LAB CHEMISTRY METHOD 02/21/2025 9:39 AM [facility] Total Bilirubin 0.3 0.0 - 1.4 mg/dL LAB CHEMISTRY METHOD 02/21/2025 9:39 AM [facility] Blood Venous blood specimen / Unknown Venipuncture / Unknown 02/21/2025 6:12 AM EDT 02/21/2025 8:27 AM EDT us Agueda Orozco MD LAB BLOOD ORDERABLES Final Resul t [facility] [address] [place] [address], documented in this encounter Visit Diagnoses Diagnosis Anemia, unspecified documented in this encounter Care Teams Chief Program Officer Relationship Specialty Start Date End Date Agueda Orozco MD [address] [place] [address] [address] [place] [address] PCP - General Geriatric Medicine 02/06/25 documented as of this encounter
--- OUTSIDE RECORDS SUMMARY | 2025-07-05 09:59 | XMS_ITS | Encounter Summary ---
Author Organization [facility] Address [address] [place] [address] Care Team Providers Care Lokie Driver Name Role Phone Agueda Orozco MD Primary Care Provider [phone] Encounter Details Date Type Department Care Team (Late st Contact Info) Description 02/18/2025 Lab Requisition [facility] - Main Lab 299 [facility] [place] [address] Agueda Orozco MD [address] [place] [address] Anemia, unspecified Social History Tobacco Use Types [...] ABO Group O 02/18/2025 12:08 PM EDT [facility] Rh Type Positive 02/18/2025 12:08 PM EDT [facility] Antibody Screen Negative 02/18/2025 12:08 PM EDT [facility] Blood Venous blood specimen / Unknown 02/18/2025 7:00 AM EDT 02/18/2025 9:02 AM EDT Agueda Orozco MD LAB BLOOD BANK TEST ORDERABLES F inal Result [facility] [address] [place] [address], documented in this encounter Visit Diagnoses Diagnosis Anemia, unspecified documented in this encounter Care Teams Lokie Driver Relationship Specialty Start Date End Date Agueda Orozco MD [address] [place] [address] [address] [place] [address] PCP - General Geriatric Medicine 02/06/25 documented as of this encounter
--- OUTSIDE RECORDS SUMMARY | 2025-07-05 09:59 | XMS_ITS | Encounter Summary ---
Author Organization [facility] Address [address] [place] [address] Care Team Providers Care Rail Car Maintenance Mechanic Name Role Phone Agueda Orozco MD Primary Care Provider [phone] Encounter Details Date Type Department Care Team (Late st Contact Info) Description 02/15/2025 Lab Requisition [facility] - Main Lab 299 [facility] [place] [phone] Agueda Orozco MD [address] [place], [place] [id number] Type 2 diabetes mellitus without complications (CMS/HCC [...] Complete blood count (02/16/2025 5:01 AM EDT) [facility] WBC 6.9 4.8 - 10.8 K/mcL LAB HEMETOLOGY METHOD 02/16/2025 9:06 AM [facility] RBC 2.20(L) 3.80 - 4.80 M/mcL LAB HEMETOLOGY METHOD 02/16/2025 9:06 AM [facility] Hemoglobin 6.6(L) 11.5 - 16.0 g/dL LAB HEMETOLOGY METHOD 02/16/2025 9:06 AM [facility] Hematocrit 21.3(L) 35.0 - 47.0 % LAB HEMETOLOGY METHOD 02/16/2025 9:06 AM [facility] MCV 96.4 79.0 - 98.0 FL LAB HEMETOLOGY METHOD 02/16/2025 9:06 AM [facility] MCH 29.9 27.0 - 32.0 pcg LAB HEMETOLOGY METHOD 02/16/2025 9:06 AM [facility] MCHC 31.0(L) 32.0 - 37.0 g/dL LAB HEMETOLOGY METHOD 02/16/2025 9:06 AM [facility] RDW 15.3(H) 11.0 - 15.0 % LAB HEMETOLOGY METHOD 02/16/2025 9:06 AM [facility] Platelets 359 130 - 400 K/mcL LAB HEMETOLOGY METHOD 02/16/2025 9:06 AM [facility] MPV 9.1 7.0 - 11.0 FL LAB HEMETOLOGY METHOD 02/16/2025 9:06 AM [facility] NRBC 0.0 <1.0 % LAB HEMETOLOGY METHOD 02/16/2025 9:06 AM [facility] NRBC Absolute 0.00 <0.10 K/mcL LAB HEMETOLOGY METHOD 02/16/2025 9:06 AM [facility] Blood Venous blood specimen / Unknown Venipuncture / Unknown 02/16/2025 5:01 AM EDT 02/16/2025 8:35 AM EDT us Agueda Orozco MD LAB BLOOD ORDERABLES Final Resul t [facility] [address] [place] [address], [place] [phone] * (ABNORMAL) Basic metabolic panel (02/16/2025 5:01 AM EDT) Sodium 138 133 - 145 mmol/L LAB CHEMISTRY METHOD 02/16/2025 9:30 AM [facility] Potassium 4.3 3.5 - 5.5 mmol/L LAB CHEMISTRY METHOD 02/16/2025 9:30 AM [facility] Chloride 106 96 - 110 mmol/L LAB CHEMISTRY METHOD 02/16/2025 9:30 AM [facility] CO2 25 21 - 32 mmol/L LAB CHEMISTRY METHOD 02/16/2025 9:30 AM [facility] Anion Gap 7 3 - 11 LAB CHEMISTRY METHOD 02/16/2025 9:30 AM [facility] Glucose 89 70 - 100 mg/dL LAB CHEMISTRY METHOD 02/16/2025 9:30 AM [facility] BUN 31(H) 5 - 25 mg/dL LAB CHEMISTRY METHOD 02/16/2025 9:30 AM [facility] Creatinine 1.49(H) 0.50 - 1.10 mg/dL LAB CHEMISTRY METHOD 02/16/2025 9:30 AM [facility] eGFR 37(L) >=60 mL/min/1. 73m2 LAB CHEMISTRY METHOD 02/16/2025 9:30 AM EDT [facility] Comment:Calculation based on the Chronic Kidney Disease Epidemiology Collaboration (CKD-EPI) equation refit without adjustment for race. BUN/Creatinine Ratio 20.8 LAB CHEMISTRY METHOD 02/16/2025 9:30 AM EDT [facility] Calcium 8.1(L) 8.5 - 10.5 mg/dL LAB CHEMISTRY METHOD 02/16/2025 9:30 AM EDT [facility] Blood Venous blood specimen / Unknown Venipuncture / Unknown 02/16/2025 5:01 AM EDT 02/16/2025 8:35 AM EDT Agueda Orozco MD LAB BLOOD ORDERABLES Final Resul t [facility] [address] [place] [address], documented in this encounter Visit Diagnoses Diagnosis Type 2 diabetes mellitus without complications (CMS/HCC V24, CMS/HCC V28) documented in this encounter Care Teams Rail Car Maintenance Mechanic Relationship Specialty Start Date End Date Agueda Orozco MD [address] [place] [address] [address] [place] [address] PCP - General Geriatric Medicine 02/06/25 documented as of this encounter
== END 2025-07-05 09:37 | disposition home or self-care (01) ==
LOC: HO.RHES 09:07
PROVIDERS: PCP Internal Medicine; Visit Provider Internal Medicine Rheumatology
DX: M06.9 Rheumatoid arthritis, unspecified (principal); Z79.899 Other long term (current) drug therapy
CPT/HCPCS: 99214; G2211

== ENCOUNTER → 2025-07-05 09:06 | Outpatient (BNVA) | payer MEDICARE, SELFPAY | PROVIDERS: PCP Internal Medicine; Visit Provider Internal Medicine Rheumatology | DX: M06.09 Rheumatoid arthritis without rheumatoid factor, multiple sites (principal); Z79.899 Other long term (current) drug therapy | CPT/HCPCS: 99212 ==